=== PATIENT | female | born 1975 | race Caucasian/White ===

== ENCOUNTER 2016-05-24 19:53 | Emergency (ER) | payer MEDICAID ==
[~2016-05-24 19:53] MED LIST: IBUP800T23 PO; TRAM50TA PO
[2016-05-24 19:58] VITALS: BP 126/90; PULSE 86; RESP 20; TEMP 99; O2SAT 100
[2016-05-24] MEDS ORDERED: ATEN100T PO (20:09)
--- NOTE | 2016-05-24 20:26 | PD ---
HPI Chief Complaint: Musculoskeletal Complaint Time Seen by Provider: 20:07 Travel History International Travel<30 days: No Contact w/Intl Traveler<30days: No Traveled to known affect area: No History of Present Illness HPI 40-year-old female is complaining of some nausea and headache. She says she been feeling sick for a couple of days. She is having a constant dull headache. She does have a history of headaches. He's taken Tylenol and Motrin without much response. She is being evaluated by her doctor for a lump on her left breast. She had ultrasound and mammogram done apparently her doctor thinks he has some lymph glands in the left axilla. PFSH Past Medical History Anemia: Yes Blood Disorders: No Heart Rhythm Problems: Yes (PRE-SVT) Diabetes: No Diminished Hearing: No Herniated Disk: Yes (two) Hypertension: Yes Kidney Stones: Yes Musculoskeletal: Yes (CHRONIC BACK PAIN) Reproductive: Yes (R OVARY ADHESION, ENDOMETRIOSIS) Immunizations Current: No Migraines: Yes Influenza Vaccination: No ?: Not Menopausal: Yes : 3 Para: 3 Ovarian Cysts: Yes Tubal Ligation: Yes Past Surgical History Abdominal Surgery: Yes (HAD LAP 07/03/06) Appendectomy: Yes Body Medical Devices: DX WITH TUMOR RIGHT OVARY Section: Yes (X3) Cholecystectomy: Yes Gynecologic Surgery: Yes (, LAPAROSCOPIES) Hysterectomy: Yes (2004) Social History Alcohol Use: No Tobacco Use: No Substance Use: No Allergies-Medications (Allergen,Severity, Reaction): Coded Allergies: Benzoin (Verified Allergy, Severe, rash, 01/30/16) Compazine (Verified Allergy, Severe, AGGITATION/INCREASED HR, 01/30/16) Reglan (Verified Allergy, Severe, AGGITATION/INCREASED HR, 01/30/16) Toradol (Verified Allergy, Severe, RASH, 01/30/16) Reported Meds & Prescriptions Reported Meds & Active Scripts Active Reported Atenolol 100 Mg Tab 100 Mg PO DAILY Ibuprofen 800 Mg Tab 800 Mg PO BID PRN Tramadol (Tramadol HCl) 50 Mg Tab 50 Mg PO QID PRN Review of Systems General / Constitutional: No: Fever, Chills Eyes: No: Diploplia, Blurred Vision HENT: Positive: Headaches Cardiovascular: No: Chest Pain or Discomfort, Palpitations Respiratory: No: Cough, Shortness of Breath Gastrointestinal: Positive: Nausea, Diarrhea Genitourinary: No: Urgency, Frequency Musculoskeletal: No: Myalgias Skin: No Rash, No Itching Neurologic: No: Weakness Endocrine: No: Heat Intolerance Hematologic/Lymphatic: No: Easy Bruising Physical Exam Narrative GENERAL: Well-developed female SKIN: Focused skin assessment warm/dry. HEAD: Atraumatic. Normocephalic. EYES: Pupils equal and round. No scleral icterus. No injection or drainage. ENT: No nasal bleeding or discharge. Mucous membranes pink and moist. NECK: Trachea midline. No JVD. CARDIOVASCULAR: Regular rate and rhythm. No murmur appreciated. RESPIRATORY: No accessory muscle use. Clear to auscultation. Breath sounds equal bilaterally. On the outer quadrant of the left breast is a 1 cm diameter firm mass. I do not feel any axillary adenopathy GASTROINTESTINAL: Abdomen soft, non-tender, nondistended. Hepatic and splenic margins not palpable. MUSCULOSKELETAL: No obvious deformities. No clubbing. No cyanosis. No edema. NEUROLOGICAL: Awake and alert. No obvious cranial nerve deficits. Motor grossly within normal limits. Normal speech. PSYCHIATRIC: Appropriate mood and affect; insight and judgment normal. Data Data Last Documented VS Vital Signs Date Time Temp Pulse Resp B/P Pulse Ox O2 Delivery O2 Flow Rate FiO2 05/24/16 20:47 82 18 147/90 98 Room Air 05/24/16 19:58 99.0 Orders Complete Blood Count With Diff (05/24/16 20:21) Basic Metabolic Panel (Bmp) (05/24/16 20:21) Urinalysis - C+S If Indicated (05/24/16 20:21) Sodium Chlor 0.9% 1000 Ml Inj (Ns 1000 M (05/24/16 20:30) Ondansetron Inj (Zofran Inj) (05/24/16 20:30) Morphine Inj (Morphine Inj) (05/24/16 20:30) Urine Culture (05/24/16 20:25) Labs Laboratory Tests Test 05/24/16 05/24/16 20:25 20:30 Urine Color YELLOW Urine Turbidity SLIGHT Urine pH 5.5 Urine Specific [place] 1.031 Urine Protein 30 mg/dL Urine Glucose (UA) NEG mg/dL Urine Ketones NEG mg/dL Urine Occult Blood TRACE Urine Nitrite NEG Urine Bilirubin NEG Urine Leukocyte Esterase NEG Urine RBC 0-3 /hpf Urine WBC 0-2 /hpf Urine Squamous Epithelial 0-5 /hpf Cells Urine Calcium Oxalate Crystals MANY /hpf Urine Bacteria MOD /hpf Urine Hyaline Casts 0-2 /lpf Urine Mucus MOD /lpf Microscopic Urinalysis Comment CULTURE INDICATED White Blood Count 10.2 TH/MM3 Red Blood Count 4.26 MIL/MM3 Hemoglobin 12.2 GM/DL Hematocrit 36.0 % Mean Corpuscular Volume 84.5 FL Mean Corpuscular Hemoglobin 28.6 PG Mean Corpuscular Hemoglobin 33.9 % Concent Red Cell Distribution Width 11.8 % Platelet Count 287 TH/MM3 Mean Platelet Volume 7.7 FL Neutrophils (%) (Auto) 76.9 % Lymphocytes (%) (Auto) 15.6 % Monocytes (%) (Auto) 5.9 % Eosinophils (%) (Auto) 1.3 % Basophils (%) (Auto) 0.3 % Neutrophils # (Auto) 7.9 TH/MM3 Lymphocytes # (Auto) 1.6 TH/MM3 Monocytes # (Auto) 0.6 TH/MM3 Eosinophils # (Auto) 0.1 TH/MM3 Basophils # (Auto) 0.0 TH/MM3 CBC Comment DIFF FINAL Differential Comment Sodium Level 144 MEQ/L Potassium Level 3.6 MEQ/L Chloride Level 107 MEQ/L Carbon Dioxide Level 28.0 MEQ/L Anion Gap 9 MEQ/L Blood Urea Nitrogen 10 MG/DL Creatinine 0.81 MG/DL Estimat Glomerular Filtration 79 ML/MIN Rate Random Glucose 102 MG/DL Calcium Level 8.7 MG/DL MDM Medical Decision Making Medical Screen Exam Complete: Yes Emergency Medical Condition: Yes Medical Record Reviewed: Yes Differential Diagnosis Differential includes breast lump, viral syndrome Narrative Course White count is 10,000. Urine shows bacteria but there are no white cells and leukocyte esterase and nitrates are negative. She is stable I doubt this lump on the breast that she has had for 2 months as the cause of her current illness. She is having vomiting and diarrhea area most likely a viral syndrome. I will prescribe Zofran for nausea Diagnosis Primary Impression: Viral syndrome Scripts Ondansetron Odt (Zofran Odt)4 Mg Tab4 Mg SL Q8HR PRN (Nausea/Vomiting) #10 TAB Ref 0 Prov:Guillermo Uriostegui MD 05/24/16 Disposition: DISCHARGE HOME Condition: Stable Guillermo Uriostegui MD May 24, 2016 20:26
[2016-05-24] MEDS ORDERED: SODIUM CHLOR 0.9% 1000 ML INJ 1,000 ML IV ONE (20:30)
[2016-05-24] MEDS ORDERED: ONDANSETRON HCL 4 MG/2 ML VIAL IV PUSH ONE (20:30)
[2016-05-24] MEDS ORDERED: MORPHINE SULFATE 8 MG/ML INJ IV PUSH ONE (20:30)
[2016-05-24 20:39] LABS: BLOOD, URINE TRACE (NEG); GLUCOSE,URINE NEG (NEG); KETONE, URINE NEG (NEG); NITRITE,URINE NEG (NEG); PH, URINE 5.5 (5.0-8.5)
[2016-05-24 20:39] LABS: AUTOMATED NEUTROPHIL # 7.9 TH/MM3 (1.8-7.7); BASOPHIL % 0.3 % (0.0-2.0); EOSINOPHIL # 0.1 TH/MM3 (0-0.4); EOSINOPHIL % 1.3 % (0.0-4.0); HEMO FLAGS DIFF FINAL; LYMPH % 15.6 % (9.0-44.0); LYMPHOCYTE # 1.6 TH/MM3 (1.0-4.8); MEAN CELL VOLUME 84.5 FL (80.0-100.0); MEAN CORPUSCULAR HEMOGLOBIN 28.6 PG (27.0-34.0); MEAN CORPUSCULAR HGB CONC 33.9 % (32.0-36.0); MONO % 5.9 % (0.0-8.0); NEUT % 76.9 % (16.0-70.0); PLATELET COUNT 287 TH/MM3 (150-450); RED BLOOD COUNT 4.26 MIL/MM3 (4.00-5.30); RED CELL DISTRIBUTION WIDTH 11.8 % (11.6-17.2); WHITE BLOOD COUNT 10.2 TH/MM3 (4.0-11.0)
[2016-05-24 20:46] LABS: POTASSIUM 3.6 MEQ/L (3.5-5.1)
[2016-05-24 20:47] VITALS: BP 147/90; PULSE 82; RESP 18; O2SAT 98
[2016-05-24 20:47] LABS: MUCUS URINE MOD /lpf (OCC); URINE COLOR YELLOW (YELLW/STRAW)
[2016-05-24 20:48] LABS: SQUAMOUS EPITHELIAL CELL URINE 0-5 /hpf (0-5)
[2016-05-24 20:49] LABS: CALCIUM OXALATE CRYSTALS,URINE MANY /hpf; RBC, URINE 0-3 /hpf (0-3)
[2016-05-24 20:50] LABS: WBC, URINE 0-2 /hpf (0-5)
[2016-05-24 20:51] LABS: BACTERIA, URINE MOD /hpf; HYALINE CAST, URINE 0-2 /lpf (RARE)
[2016-05-24 21:00] LABS: COMMENT (UR) CULTURE INDICATED; CULTURE IF INDICATED CULTURE INDICATED
[2016-05-24] MEDS ORDERED: ZOFR4TAB3 SL (21:08)
[2016-05-24 21:37] VITALS: BP 137/75; PULSE 77; RESP 16; O2SAT 100
== END 2016-05-24 21:44 | disposition home or self-care (01) ==
LOC: PHED 19:53
DX: B34.9 Viral infection, unspecified (principal); N39.0 Urinary tract infection, site not specified; B96.89 Other specified bacterial agents as the cause of diseases classified elsewhere
CPT/HCPCS: 80048; 81001; 85025; 87086; 96361; 96374; 96375; 99284; J2270; J2405; J7030

== ENCOUNTER 2016-07-21 15:20 | Emergency (ER) | payer MEDICAID ==
[~2016-07-21] VITALS: Ht 160 cm; Wt 98.7 kg
[~2016-07-21 15:20] MED LIST changes: +ATEN100T PO; +ZOFR4TAB3 SL
[2016-07-21 15:30] VITALS: BP 130/86; PULSE 110; RESP 16; TEMP 99.5; O2SAT 97
[2016-07-21] MEDS ORDERED: AMBI5TAB PO (15:46)
[2016-07-21] MEDS ORDERED: HYDR-3534 PO (15:47)
[2016-07-21] MEDS ORDERED: ZOFR4TAB PO (16:14)
[2016-07-21] MEDS ORDERED: PERC5TAB12 PO (16:14)
--- NOTE | 2016-07-21 16:20 | PD ---
HPI Chief Complaint: Pain: Acute or Chronic Time Seen by Provider: 16:04 Travel History International Travel<30 days: No Contact w/Intl Traveler<30days: No Traveled to known affect area: No History of Present Illness HPI The patient was seen and examined in the presence of the nurse. This patient had a lumpectomy of the left breast yesterday. She did not receive any pain medicine other than advised to take Motrin. She woke up morning with a lot of pain in the area. She tried Motrin which didn't help. No drainage from the site or redness. She also describes some runny nose congestion cough and diarrhea type symptoms. Severity is moderate PFSH Past Medical History Anemia: Yes Blood Disorders: No Heart Rhythm Problems: Yes (PRE-SVT) Diabetes: No Diminished Hearing: No Herniated Disk: Yes (two) Hypertension: Yes Kidney Stones: Yes Musculoskeletal: Yes (CHRONIC BACK PAIN) Reproductive: Yes (R OVARY ADHESION, ENDOMETRIOSIS) Immunizations Current: No Migraines: Yes ?: Not Menopausal: Yes : 3 Para: 3 Ovarian Cysts: Yes Tubal Ligation: Yes Past Surgical History Abdominal Surgery: Yes (HAD LAP 07/03/06) Appendectomy: Yes Body Medical Devices: DX WITH TUMOR RIGHT OVARY Section: Yes (X3) Cholecystectomy: Yes Gynecologic Surgery: Yes (, LAPAROSCOPIES) Hysterectomy: Yes (2004) Other Surgery: Yes (LEFT BREADT LUMPECTOMY) Social History Alcohol Use: No Tobacco Use: No Substance Use: No Allergies-Medications (Allergen,Severity, Reaction): Coded Allergies: Benzoin (Verified Allergy, Severe, rash, 07/21/16) Compazine (Verified Allergy, Severe, AGGITATION/INCREASED HR, 07/21/16) Reglan (Verified Allergy, Severe, AGGITATION/INCREASED HR, 07/21/16) Toradol (Verified Allergy, Severe, RASH, 07/21/16) Reported Meds & Prescriptions Reported Meds & Active Scripts Active Reported Lortab (Hydrocodone-Acetaminophen) 7.5-325 Mg Tab 1 Tab PO Q4H PRN Ambien (Zolpidem Tartrate) 5 Mg Tab 5 Mg PO HS PRN Atenolol 100 Mg Tab 100 Mg PO DAILY Ibuprofen 800 Mg Tab 800 Mg PO BID PRN Review of Systems Cardiovascular: No: Chest Pain or Discomfort Respiratory: Positive: Cough Gastrointestinal: Positive: Nausea, Diarrhea Skin: No Rash Physical Exam Narrative RESPIRATORY: Respiratory effort unlabored, no retractions or use of accessory muscles. Breath sounds are clear and symmetric. NECK: Symmetrical appearance, midline trachea. No mass or crepitus. Thyroid without enlargement, tenderness, or mass. GASTROINTESTINAL: Abdomen soft, non-tender, nondistended. Positive bowel sounds. No hepato-splenomegaly, or palpable masses. No guarding. Left breast: Lumpectomy site is noted. Steri-Strip in place. No dehiscence or sign of wound infection Data Data Last Documented VS Vital Signs Date Time Temp Pulse Resp B/P Pulse Ox O2 Delivery O2 Flow Rate FiO2 07/21/16 15:30 99.5 110 16 130/86 97 MDM Medical Decision Making Medical Screen Exam Complete: Yes Emergency Medical Condition: Yes Medical Record Reviewed: Yes Differential Diagnosis Flu syndrome, URI, wound infection Narrative Course I have reviewed the patient's electronic medical record. Surgical site looks good. I think this is unrelated to her flu-type symptoms Supportive care discussed I gave her a dozen pain pills and some Zofran on prescription to use if needed She is to call her surgeon tomorrow for follow-up Diagnosis Primary Impression: Postoperative pain Additional Impression: Viral syndrome Additional Instructions: The patient was warned about potential sedation for the medications they will receive on prescription. The patient was advised to follow up with their physician and return if they worsen. Med/Other Pt SpecificInfo: Prescription(s) given Scripts Ondansetron (Zofran)4 Mg Tab4 Mg PO Q6HR PRN (NAUSEA OR VOMITING) #10 TAB Ref 0 Prov:Yaya Avendaño MD 07/21/16 Oxycodone-Acetaminophen (Percocet)5-325 mg Tab1 Tab PO Q6H PRN (PAIN) #12 TAB Ref 0 Prov:Yaya Avendaño MD 07/21/16 Disposition: 01 DISCHARGE HOME Condition: Stable Yaya Avendaño MD Jul 21, 2016 16:20
== END 2016-07-21 16:55 | disposition home or self-care (01) ==
LOC: PHED 15:20
DX: G89.18 Other acute postprocedural pain (principal); B34.9 Viral infection, unspecified; R11.2 Nausea with vomiting, unspecified; R19.7 Diarrhea, unspecified; D64.9 Anemia, unspecified; I10 Essential (primary) hypertension; Z87.442 Personal history of urinary calculi
CPT/HCPCS: 99284

== ENCOUNTER 2016-07-25 17:16 | Emergency (ER) | payer MEDICAID ==
[~2016-07-25] VITALS: Ht 160 cm; Wt 94.0 kg
[~2016-07-25 17:16] MED LIST changes: +AMBI5TAB PO; +HYDR-3534 PO; +PERC5TAB12 PO; -TRAM50TA PO; +ZOFR4TAB PO; -ZOFR4TAB3 SL
[2016-07-25 17:24] VITALS: BP 136/91; PULSE 85; RESP 16; TEMP 98.5; O2SAT 99
[2016-07-25] MEDS ORDERED: SODIUM CHLORIDE 0.9% FLUSH 10 ML FLUSH IV FLUSH PRN (17:45)
[2016-07-25] MEDS ORDERED: diphenhydrAMINE HCL 50 MG/ML VIAL IVP ONE (17:45)
[2016-07-25] MEDS ORDERED: methylPREDNISolone SOD SUCC 125 MG/2 ML VIAL IVP ONE (17:45)
--- NOTE | 2016-07-25 17:45 | PD ---
HPI Chief Complaint: Pain: Acute or Chronic Time Seen by Provider: 17:40 Travel History International Travel<30 days: No Contact w/Intl Traveler<30days: No Traveled to known affect area: No History of Present Illness HPI 40-year-old female with history of previous [employer] surgeries with allergic reaction to wound adhesives, presents to the ER today because she states that she had a lumpectomy on the left breast done on Wednesday, started having redness and itching around the wound and was seen at another hospital on Wednesday, seen by her own physician the next day and had Steri-Strips removed. She returns to the ER today because of increased redness, itching, and burning in that same area. She denies any fevers or any other issues. Modifying Factors: None Associated Signs & Symptoms: Itching, burning, increased redness around the lumpectomy incision Risk Factors: Lumpectomy 5 days ago PFSH Past Medical History Hx Anticoagulant Therapy: No Anemia: Yes Blood Disorders: No Heart Rhythm Problems: Yes (PRE-SVT) Diabetes: No Diminished Hearing: No Herniated Disk: Yes (two) Hypertension: Yes Kidney Stones: Yes Musculoskeletal: Yes (CHRONIC BACK PAIN) Reproductive: Yes (R OVARY ADHESION, ENDOMETRIOSIS) Immunizations Current: No Migraines: Yes Tetanus Vaccination: > 5 Years Influenza Vaccination: No ?: Not Menopausal: Yes : 3 Para: 3 Ovarian Cysts: Yes Tubal Ligation: Yes Past Surgical History Abdominal Surgery: Yes (HAD LAP 07/03/06) Appendectomy: Yes Body Medical Devices: DX WITH TUMOR RIGHT OVARY Section: Yes (X3) Cholecystectomy: Yes Gynecologic Surgery: Yes (, LAPAROSCOPIES) Hysterectomy: Yes (2004) Other Surgery: Yes (LEFT BREADT LUMPECTOMY) Social History Alcohol Use: No Tobacco Use: No Substance Use: No Allergies-Medications (Allergen,Severity, Reaction): Coded Allergies: Benzoin (Verified Allergy, Severe, rash, 07/25/16) Compazine (Verified Allergy, Severe, AGGITATION/INCREASED HR, 07/25/16) Reglan (Verified Allergy, Severe, AGGITATION/INCREASED HR, 07/25/16) Toradol (Verified Allergy, Severe, RASH, 07/25/16) Reported Meds & Prescriptions Reported Meds & Active Scripts Active Zofran (Ondansetron HCl) 4 Mg Tab 4 Mg PO Q6HR PRN Percocet (Oxycodone-Acetaminophen) 5-325 mg Tab 1 Tab PO Q6H PRN Reported Lortab (Hydrocodone-Acetaminophen) 7.5-325 Mg Tab 1 Tab PO Q4H PRN Ambien (Zolpidem Tartrate) 5 Mg Tab 5 Mg PO HS PRN Atenolol 100 Mg Tab 100 Mg PO DAILY Ibuprofen 800 Mg Tab 800 Mg PO BID PRN Review of Systems Except as stated in HPI: all other systems reviewed are Neg Physical Exam Narrative GENERAL: Well-developed young white female patient currently in no acute distress. Awake and oriented 3. SKIN: Focused skin assessment warm/dry. The left breast incision looks clean, dry, intact, with surrounding erythema and papular erythematous diffuse nodules extending from the area with no streaking. There are notable small amount of yellowish weeping areas that are in the shape of Steri-Strip bandages around the incision. HEAD: Atraumatic. Normocephalic. EYES: Pupils equal and round. No scleral icterus. No injection or drainage. ENT: No nasal bleeding or discharge. Mucous membranes pink and moist. NECK: Trachea midline. No JVD. CARDIOVASCULAR: Regular rate and rhythm. No murmur appreciated. RESPIRATORY: No accessory muscle use. Clear to auscultation. Breath sounds equal bilaterally. GASTROINTESTINAL: Abdomen soft, non-tender, nondistended. Hepatic and splenic margins not palpable. MUSCULOSKELETAL: No obvious deformities. No clubbing. No cyanosis. No edema. NEUROLOGICAL: Awake and alert. No obvious cranial nerve deficits. Motor grossly within normal limits. Normal speech. PSYCHIATRIC: Appropriate mood and affect; insight and judgment normal. Data Data Last Documented VS Vital Signs Date Time Temp Pulse Resp B/P Pulse Ox O2 Delivery O2 Flow Rate FiO2 07/25/16 18:18 98 Room Air 07/25/16 17:24 98.5 85 16 136/91 Orders Basic Metabolic Panel (Bmp) (07/25/16 17:40) Complete Blood Count With Diff (07/25/16 17:40) Ecg Monitoring (07/25/16 17:40) Iv Access Insert/Monitor (07/25/16 17:40) Oximetry (07/25/16 17:40) Diphenhydramine Inj (Benadryl Inj) (07/25/16 17:45) Methylprednisolone So Succ Inj (Solumedr (07/25/16 17:45) Sodium Chloride 0.9% Flush (Ns Flush) (07/25/16 17:45) Lactic Acid Sepsis Protocol (07/25/16 17:40) Ibuprofen (Motrin) (07/25/16 18:15) Labs Laboratory Tests Test 07/25/16 07/25/16 17:56 18:14 White Blood Count 7.4 TH/MM3 Red Blood Count 4.28 MIL/MM3 Hemoglobin 12.4 GM/DL Hematocrit 35.9 % Mean Corpuscular Volume 83.8 FL Mean Corpuscular Hemoglobin 28.8 PG Mean Corpuscular Hemoglobin 34.4 % Concent Red Cell Distribution Width 11.4 % Platelet Count 293 TH/MM3 Mean Platelet Volume 7.8 FL Neutrophils (%) (Auto) 70.8 % Lymphocytes (%) (Auto) 18.1 % Monocytes (%) (Auto) 7.6 % Eosinophils (%) (Auto) 3.0 % Basophils (%) (Auto) 0.5 % Neutrophils # (Auto) 5.2 TH/MM3 Lymphocytes # (Auto) 1.3 TH/MM3 Monocytes # (Auto) 0.6 TH/MM3 Eosinophils # (Auto) 0.2 TH/MM3 Basophils # (Auto) 0.0 TH/MM3 CBC Comment DIFF FINAL Differential Comment Sodium Level 141 MEQ/L Potassium Level 3.8 MEQ/L Chloride Level 105 MEQ/L Carbon Dioxide Level 28.5 MEQ/L Anion Gap 8 MEQ/L Blood Urea Nitrogen 9 MG/DL Creatinine 0.71 MG/DL Estimat Glomerular Filtration 92 ML/MIN Rate Random Glucose 95 MG/DL Calcium Level 9.5 MG/DL Lactic Acid Level 1.2 mmol/L [facility] Medical Decision Making Medical Screen Exam Complete: Yes Emergency Medical Condition: Yes Medical Record Reviewed: Yes Interpretation(s) Laboratory Tests Test 07/25/16 17:56 Red Cell Distribution Width 11.4 % (11.6-17.2) Neutrophils (%) (Auto) 70.8 % (16.0-70.0) Differential Diagnosis Allergic reaction to adhesives versus cellulitis Narrative Course Patient also reports that she has had multiple episodes of diarrhea daily since her surgery. She had been on some IV antibiotics during the surgery but is not on any current antibiotics now. Considering the history, I am suspecting that she may have some C. difficile diarrhea. Flagyl will be given as well. I suspect that patient has a allergic reaction to Steri-Strips. She apparently had a reaction to what they thought was benzoin when she had her [employer]ECUTIVE surgeries. It is likely that Steri-Strips were used at that point as well. The blistering and exudates where the erythema is surrounding, is in the shape of Steri-Strips. My plan would be to put her on some steroids and keep her on the Benadryl. We will have her follow-up closely with her surgeon on Wednesday. Return for any signs of worsening in redness, fevers, or new symptoms as needed. Lab work did not indicate any signs of sepsis. At this point. The plan was discussed with her and she states understanding. Diagnosis Primary Impression: Allergic reaction Additional Impression: C. difficile diarrhea Med/Other Pt SpecificInfo: Prescription(s) given Scripts Acetaminophen-Codeine (Tylenol-Codeine #3)300-30 mg Tab1 Tab PO Q4H PRN (PAIN) # 10 TAB Ref 0 Prov:Rich Landers MD 07/25/16 Metronidazole (Flagyl)500 Mg [id number] Mg PO TID 7 Days Ref 0 Prov:Rich Landers MD 07/25/16 Methylprednisolone Dosepak (Medrol Dosepak)4 Mg Dspk4 Mg PO DIRECTED #1 DSPK Ref 0 Per Pharmacist direction Prov:Rich Landers MD 07/25/16 Disposition: 01 DISCHARGE HOME Condition: Stable Rich Landers MD Jul 25, 2016 17:45
[2016-07-25 18:07] LABS: AUTOMATED NEUTROPHIL # 5.2 TH/MM3 (1.8-7.7); BASOPHIL % 0.5 % (0.0-2.0); EOSINOPHIL # 0.2 TH/MM3 (0-0.4); HEMATOCRIT 35.9 % (35.0-46.0); HEMO FLAGS DIFF FINAL; LYMPH % 18.1 % (9.0-44.0); LYMPHOCYTE # 1.3 TH/MM3 (1.0-4.8); MEAN CELL VOLUME 83.8 FL (80.0-100.0); MEAN CORPUSCULAR HEMOGLOBIN 28.8 PG (27.0-34.0); MEAN CORPUSCULAR HGB CONC 34.4 % (32.0-36.0); MONO % 7.6 % (0.0-8.0); NEUT % 70.8 % (16.0-70.0); PLATELET COUNT 293 TH/MM3 (150-450); RED BLOOD COUNT 4.28 MIL/MM3 (4.00-5.30); RED CELL DISTRIBUTION WIDTH 11.4 % (11.6-17.2); WHITE BLOOD COUNT 7.4 TH/MM3 (4.0-11.0)
[2016-07-25 18:15] LABS: POTASSIUM 3.8 MEQ/L (3.5-5.1)
[2016-07-25] MEDS ORDERED: IBUPROFEN 400 MG TAB PO ONE (18:15)
[2016-07-25 18:18] VITALS: O2SAT 98
[2016-07-25 18:18] LABS: BICARBONATE 28.5 MEQ/L (21.0-32.0)
[2016-07-25] MEDS ORDERED: MEDR4PAK PO (19:04)
[2016-07-25] MEDS ORDERED: TYLETAB34 PO (19:04)
[2016-07-25] MEDS ORDERED: METR-1 PO (19:04)
[2016-07-25 19:21] VITALS: BP 127/74
== END 2016-07-25 19:22 | disposition home or self-care (01) ==
LOC: PHED 17:16
DX: T78.49XA Other allergy, initial encounter (principal); A04.7 Enterocolitis due to Clostridium difficile; I10 Essential (primary) hypertension; X58.XXXA Exposure to other specified factors, initial encounter; Z98.890 Other specified postprocedural states; Z86.2 Personal history of diseases of the blood and blood-forming organs and certain disorders involving the immune mechanism; Z86.79 Personal history of other diseases of the circulatory system; Z87.39 Personal history of other diseases of the musculoskeletal system and connective tissue; Z87.442 Personal history of urinary calculi; Z87.42 Personal history of other diseases of the female genital tract; Z86.69 Personal history of other diseases of the nervous system and sense organs
CPT/HCPCS: 80048; 83605; 85025; 96374; 96375; 99284; J1200; J2930

== ENCOUNTER 2016-09-14 15:12 | Emergency (ER) | payer MEDICAID ==
[~2016-09-14] VITALS: Ht 154.9 cm; Wt 95.0 kg
[~2016-09-14 15:12] MED LIST changes: +MEDR4PAK PO; +METR-1 PO; +TYLETAB34 PO
[2016-09-14 15:15] VITALS: BP 162/89; PULSE 83; PULSE 88; RESP 16; TEMP 98.8; O2SAT 100; O2SAT 99
[2016-09-14] MEDS ORDERED: HYDR-3366 PO (15:23)
[2016-09-14] MEDS ORDERED: ULTR37.55 PO (15:32)
--- NOTE | 2016-09-14 15:38 | PD ---
HPI Chief Complaint: Headache Time Seen by Provider: 15:25 Travel History International Travel<30 days: No Contact w/Intl Traveler<30days: No Traveled to known affect area: No History of Present Illness HPI The patient was seen and examined in the presence of the nurse. This patient complains of migraine headache. She has a right frontal throbbing headache. No head injury or thunderclap onset. She says this feels like her usual migraine but just wasn't going away. Duration 2 days. She says she's had migraines like this ever since the age of 11. She says that Ultracet helps her migraine but she doesn't have any. PFSH Past Medical History Hx Anticoagulant Therapy: No Anemia: Yes Blood Disorders: No Heart Rhythm Problems: Yes (PRE-SVT) Diabetes: No Diminished Hearing: No Herniated Disk: Yes (two) Hypertension: Yes Kidney Stones: Yes Musculoskeletal: Yes (CHRONIC BACK PAIN) Reproductive: Yes (R OVARY ADHESION, ENDOMETRIOSIS) Immunizations Current: No Migraines: Yes Influenza Vaccination: No ?: Not Menopausal: Yes : 3 Para: 3 Ovarian Cysts: Yes Tubal Ligation: Yes Past Surgical History Abdominal Surgery: Yes (HAD LAP 07/03/06) Appendectomy: Yes Body Medical Devices: DX WITH TUMOR RIGHT OVARY Section: Yes (X3) Cholecystectomy: Yes Gynecologic Surgery: Yes (, LAPAROSCOPIES) Hysterectomy: Yes Other Surgery: Yes (LEFT BREADT LUMPECTOMY) Social History Alcohol Use: No Tobacco Use: No Substance Use: No Allergies-Medications (Allergen,Severity, Reaction): Coded Allergies: Benzoin (Verified Allergy, Severe, rash, 09/14/16) Compazine (Verified Allergy, Severe, AGGITATION/INCREASED HR, 09/14/16) Reglan (Verified Allergy, Severe, AGGITATION/INCREASED HR, 09/14/16) Toradol (Verified Allergy, Severe, RASH, 09/14/16) Reported Meds & Prescriptions Reported Meds & Active Scripts Active Ultracet (Tramadol-Acetaminophen) 37.5-325 mg Tab 2 Tab PO Q6H PRN Reported [place] (Hydrocodone-Acetaminophen) 10-325 Mg Tab 1 Tab PO TID Atenolol 100 Mg Tab 100 Mg PO DAILY Ibuprofen 800 Mg Tab 800 Mg PO BID PRN Review of Systems General / Constitutional: No: Fever HENT: Positive: Headaches Cardiovascular: No: Chest Pain or Discomfort Respiratory: No: Cough Physical Exam Narrative NEUROLOGICAL: Awake and alert. Pupils are equal round and reactive. Motor and sensory grossly within normal limits. Five out of 5 muscle strength in all muscle groups. Normal speech. NECK: Symmetrical appearance, midline trachea. No mass or crepitus. Thyroid without enlargement, tenderness, or mass. No meningeal signs SKIN: Focused skin assessment reveals no rash or ulcers. Skin is warm and dry. Palpation shows no induration or nodules. Data Data Last Documented VS Vital Signs Date Time Temp Pulse Resp B/P Pulse Ox O2 Delivery O2 Flow Rate FiO2 09/14/16 15:15 98.8 88 16 162/89 100 Room Air MDM Medical Decision Making Medical Screen Exam Complete: Yes Emergency Medical Condition: Yes Medical Record Reviewed: Yes Differential Diagnosis Differential diagnosis includes migraine, tension headache, cluster headache, meningitis. Narrative Course I have reviewed the patient's electronic medical record. She is a frequent visitor to the ER for minor complaints. She was here last month for viral syndrome She is neurologically intact. No red flags to suggest emergent imaging is indicated I wrote her some Ultracet Diagnosis Primary Impression: Migraine Qualified Code: G43.909 - Migraine without status migrainosus, not intractable , unspecified migraine type Additional Instructions: The patient was advised to follow up with their physician and return if they worsen. The patient was warned about potential sedation for the medications they will receive on prescription. Med/Other Pt SpecificInfo: Prescription(s) given Scripts Tramadol-Acetaminophen (Ultracet)37.5-325 mg Tab2 Tab PO Q6H PRN (PAIN) #20 TAB Ref 0 Prov:Yaya Avendaño MD 09/14/16 Disposition: 01 DISCHARGE HOME Condition: Stable Yaya Avendaño MD Sep 14, 2016 15:38
== END 2016-09-14 15:48 | disposition home or self-care (01) ==
LOC: PHED 15:12
DX: G43.909 Migraine, unspecified, not intractable, without status migrainosus (principal); I10 Essential (primary) hypertension; Z86.2 Personal history of diseases of the blood and blood-forming organs and certain disorders involving the immune mechanism; Z86.79 Personal history of other diseases of the circulatory system; Z87.39 Personal history of other diseases of the musculoskeletal system and connective tissue; Z87.442 Personal history of urinary calculi; Z87.42 Personal history of other diseases of the female genital tract
CPT/HCPCS: 99283

== ENCOUNTER 2016-10-03 07:22 | Emergency (ER) | payer MEDICAID ==
[~2016-10-03] VITALS: Ht 160 cm; Wt 95.2 kg
[~2016-10-03 07:22] MED LIST changes: -AMBI5TAB PO; +HYDR-3366 PO; -HYDR-3534 PO; -MEDR4PAK PO; -METR-1 PO; -PERC5TAB12 PO; -TYLETAB34 PO; +ULTR37.55 PO; -ZOFR4TAB PO
[2016-10-03 07:29] VITALS: BP 106/59; PULSE 88; RESP 16; TEMP 97.6; O2SAT 98
[2016-10-03 07:53] LABS: BLOOD, URINE LARGE (NEG); GLUCOSE,URINE NEG (NEG); KETONE, URINE NEG (NEG); NITRITE,URINE NEG (NEG); PH, URINE 5.5 (5.0-8.5)
[2016-10-03] MEDS ORDERED: SODIUM CHLOR 0.9% 1000 ML INJ 1,000 ML IV SCH (07:55)
[2016-10-03 07:59] LABS: METHOD OF COLLECTION CLEAN CATCH; URINE COLOR YELLOW (YELLW/STRAW)
[2016-10-03 08:00] LABS: BACTERIA, URINE RARE /hpf; COMMENT (UR) CULTURE INDICATED; CULTURE IF INDICATED CULTURE INDICATED; RBC, URINE 100-200 /hpf (0-3); SQUAMOUS EPITHELIAL CELL URINE > 8 /hpf (0-5)
[2016-10-03] MEDS ORDERED: SODIUM CHLORIDE 0.9% FLUSH 10 ML FLUSH IV FLUSH PRN (08:00)
[2016-10-03] MEDS ORDERED: ONDANSETRON HCL 4 MG/2 ML VIAL IVP ONE (08:00)
[2016-10-03] MEDS ORDERED: KETOROLAC TROMETHAMINE 30 MG/ML (IVP) VIAL IV PUSH ONE (08:00)
--- NOTE | 2016-10-03 08:10 | PD ---
HPI Chief Complaint: Flank/Kidney Pain Time Seen by Provider: 07:55 Travel History International Travel<30 days: No Contact w/Intl Traveler<30days: No Traveled to known affect area: No History of Present Illness HPI Patient is a 40-year-old female presents emergency Department with left flank pain and shortness of breath since yesterday. Patient states she's been short of breath with ambulation. States she's also been having suprapubic abdominal pain and states she has a lot of scar tissue "down there". Patient states she has a history of endometriosis and had a total hysterectomy a few years ago. Denies any vaginal bleeding vaginal discharge. Mild nausea without vomiting no change in stool habits. She has not tried anything for pain prior to arrival states that sharp and fairly constant. PFSH Past Medical History Hx Anticoagulant Therapy: No Anemia: Yes Arthritis: Yes (RA) Blood Disorders: No Heart Rhythm Problems: Yes (PRE-SVT) Cardiovascular Problems: Yes (htn on meds) Diabetes: No Diminished Hearing: No Herniated Disk: Yes (two) Hypertension: Yes Kidney Stones: Yes Musculoskeletal: Yes (CHRONIC BACK PAIN) Reproductive: Yes (R OVARY ADHESION, ENDOMETRIOSIS) Immunizations Current: No Migraines: Yes Tetanus Vaccination: < 5 Years Influenza Vaccination: No ?: Not Menopausal: Yes : 3 Para: 3 Ovarian Cysts: Yes Tubal Ligation: Yes Past Surgical History Abdominal Surgery: Yes (HAD LAP 07/03/06) Appendectomy: Yes Body Medical Devices: DX WITH TUMOR RIGHT OVARY Section: Yes (X3) Cholecystectomy: Yes Gynecologic Surgery: Yes (, LAPAROSCOPIES) Hysterectomy: Yes (2003) Other Surgery: Yes (LEFT BREADT LUMPECTOMY) Social History Alcohol Use: No Tobacco Use: No (smoked cigs for 3 yrs) Substance Use: No Allergies-Medications (Allergen,Severity, Reaction): Coded Allergies: benzoin (Unverified Allergy, Severe, rash, 10/03/16) ketorolac (Unverified Allergy, Severe, RASH, 10/03/16) metoclopramide (Unverified Allergy, Severe, AGGITATION/INCREASED HR, ) prochlorperazine (Unverified Allergy, Severe, AGGITATION/INCREASED HR, ) storax (Unverified Allergy, Severe, rash, 10/03/16) jorge balsam (Unverified Allergy, Severe, rash, 10/03/16) Reported Meds & Prescriptions Reported Meds & Active Scripts Active Tramadol (Tramadol HCl) 50 Mg Tab 50 Mg PO Q6H PRN Keflex (Cephalexin) 500 Mg Cap 500 Mg PO Q6H 5 Days Reported Turmeric (Turmeric (Curcuma Longa)) 500 Mg Cap 1 Cap PO BID [place]-3 Fish Oil/Vitamin (Fish Oil-Cholecalciferol) 1,000-1,000 Mg Cap 1 Cap PO DAILY Multiple Vitamin 1 Tab 1 Tab PO DAILY [place] (Hydrocodone-Acetaminophen) 10-325 Mg Tab 1 Tab PO TID Atenolol 100 Mg Tab 100 Mg PO DAILY Ibuprofen 800 Mg Tab 800 Mg PO BID PRN Review of Systems Except as stated in HPI: all other systems reviewed are Neg Physical Exam Narrative GENERAL: Well-developed well-nourished, mildly uncomfortable appearance SKIN: Focused skin assessment warm/dry. HEAD: Atraumatic. Normocephalic. EYES: Pupils equal and round. No scleral icterus. No injection or drainage. ENT: No nasal bleeding or discharge. Mucous membranes pink and moist. NECK: Trachea midline. No JVD. CARDIOVASCULAR: Regular rate and rhythm. No murmur appreciated. RESPIRATORY: No accessory muscle use. Clear to auscultation. Breath sounds equal bilaterally. GASTROINTESTINAL: Abdomen soft, non-tender, nondistended. Hepatic and splenic margins not palpable. No CVA tenderness, no peritoneal signs, psoas and after signs negative. MUSCULOSKELETAL: No obvious deformities. No clubbing. No cyanosis. No edema. NEUROLOGICAL: Awake and alert. No obvious cranial nerve deficits. Motor grossly within normal limits. Normal speech. PSYCHIATRIC: Appropriate mood and affect; insight and judgment normal. Data Data Last Documented VS Vital Signs Date Time Temp Pulse Resp B/P Pulse Ox O2 Delivery O2 Flow Rate FiO2 10/03/16 09:38 68 18 140/86 100 10/03/16 09:35 Room Air 10/03/16 07:29 97.6 Orders Urinalysis - C+S If Indicated (10/03/16 07:28) Ed Urine Pregnancytest Poc (10/03/16 07:28) Complete Blood Count With Diff (10/03/16 07:55) Comprehensive Metabolic Panel (10/03/16 07:55) Lipase (10/03/16 07:55) Prothrombin Time / Inr (Pt) (10/03/16 07:55) Act Partial Throm Time (Ptt) (10/03/16 07:55) Iv Access Insert/Monitor (10/03/16 07:55) Ecg Monitoring (10/03/16 07:55) Oximetry (10/03/16 07:55) Ondansetron Inj (Zofran Inj) (10/03/16 08:00) Sodium Chlor 0.9% 1000 Ml Inj (Ns 1000 M (10/03/16 07:55) Sodium Chloride 0.9% Flush (Ns Flush) (10/03/16 08:00) Ketorolac Inj (Toradol Inj) (10/03/16 08:00) Urine Culture (10/03/16 07:45) Ct Abd/Pel W/O Iv Contrast (10/03/16 ) Chest, Single Ap (10/03/16 ) Labs Laboratory Tests Test 10/03/16 10/03/16 07:45 08:20 Urine Collection Type CLEAN CATCH Urine Color YELLOW Urine Turbidity SLIGHT Urine pH 5.5 Urine Specific [place] 1.024 Urine Protein NEG mg/dL Urine Glucose (UA) NEG mg/dL Urine Ketones NEG mg/dL Urine Occult Blood LARGE Urine Nitrite NEG Urine Bilirubin NEG Urine Leukocyte Esterase TRACE Urine RBC 100-200 /hpf Urine WBC 9-14 /hpf Urine Squamous Epithelial > 8 /hpf Cells Urine Bacteria RARE /hpf Microscopic Urinalysis Comment CULTURE INDICATED Urine Collection Time 07:45 White Blood Count 5.6 TH/MM3 Red Blood Count 4.45 MIL/MM3 Hemoglobin 12.7 GM/DL Hematocrit 36.9 % Mean Corpuscular Volume 82.9 FL Mean Corpuscular Hemoglobin 28.5 PG Mean Corpuscular Hemoglobin 34.3 % Concent Red Cell Distribution Width 11.4 % Platelet Count 246 TH/MM3 Mean Platelet Volume 7.8 FL Neutrophils (%) (Auto) 61.7 % Lymphocytes (%) (Auto) 26.7 % Monocytes (%) (Auto) 6.8 % Eosinophils (%) (Auto) 4.0 % Basophils (%) (Auto) 0.8 % Neutrophils # (Auto) 3.5 TH/MM3 Lymphocytes # (Auto) 1.5 TH/MM3 Monocytes # (Auto) 0.4 TH/MM3 Eosinophils # (Auto) 0.2 TH/MM3 Basophils # (Auto) 0.0 TH/MM3 CBC Comment DIFF FINAL Differential Comment Prothrombin Time 10.2 SEC Prothromb Time International 0.9 RATIO Ratio Activated Partial 26.8 SEC Thromboplast Time Sodium Level 138 MEQ/L Potassium Level 3.8 MEQ/L Chloride Level 105 MEQ/L Carbon Dioxide Level 26.0 MEQ/L Anion Gap 7 MEQ/L Blood Urea Nitrogen 10 MG/DL Creatinine 0.76 MG/DL Estimat Glomerular Filtration 85 ML/MIN Rate Random Glucose 97 MG/DL Calcium Level 8.9 MG/DL Total Bilirubin 0.3 MG/DL Aspartate Amino Transf 24 U/L (AST/SGOT) Alanine Aminotransferase 35 U/L (ALT/SGPT) Alkaline Phosphatase 95 U/L Total Protein 8.1 GM/DL Albumin 4.0 GM/DL Lipase 106 U/L [facility] Medical Decision Making Medical Screen Exam Complete: Yes Emergency Medical Condition: Yes Differential Diagnosis Diverticulitis, kidney stone, kidney infection, Narrative Course Patient roomed in the emergency department, she isolates the pain fairly well to her left lower quadrant and left flank. She does have a significant amount hematuria. States she had one kidney stone in the past but never caused her pain. CAT scan was performed to confirm kidney stone is possible diagnosis and does not show kidney stones but does show some lymphadenopathy and per the radiologist "lymphoma needs exclusion." This was discussed with the patient and she states "that make sense". She states she's been very fatigued and actually had noticed some lymph nodes in her left breast one of which was biopsied and was showing fibrocystic disease. She states that the lymph node that she was concerned about was not biopsied. She then demonstrated to me in front of female nurse medical center representative a 1 cm nodular mass subcutaneous in the 3 o' clock position of the left breast. No lymphadenopathy in the axillary chain. Patient's labs reviewed and are reassuring and she is feeling better after medications during in the emergency department. I discussed with her that she needs to follow-up with primary care physician and consider following up oncology for consideration of biopsy of the note in her breasts were one of the nodes in her abdomen if amenable. Discussed that she be done fairly soon but certainly no need to admit her to the hospital at this time. She verbalized understanding and agreement wished to go home at this time. She was given copies of her CAT scan reports and instructed that if she cannot find someone to follow-up these lymph nodes in the timely fashion and she can return to the emergency Department for consideration of further workup here. Diagnosis Primary Impression: Abdominal lymphadenopathy Additional Impressions: Abdominal pain Hematuria Referrals: Addy Pedersen MD, Awais M. MD Med/Other Pt SpecificInfo: Prescription(s) given Scripts Tramadol 50 Mg Tab50 Mg PO Q6H PRN (PAIN) #15 TAB Ref 0 Prov:Usman Kc MD 10/03/16 Cephalexin (Keflex)500 Mg Iej873 Mg PO Q6H 5 Days Ref 0 Prov:Usman Kc MD 10/03/16 Disposition: 01 DISCHARGE HOME Condition: Stable Usman Kc MD Oct 03, 2016 08:10
[2016-10-03 08:27] LABS: AUTOMATED NEUTROPHIL # 3.5 TH/MM3 (1.8-7.7); BASOPHIL % 0.8 % (0.0-2.0); EOSINOPHIL # 0.2 TH/MM3 (0-0.4); HEMATOCRIT 36.9 % (35.0-46.0); HEMO FLAGS DIFF FINAL; LYMPH % 26.7 % (9.0-44.0); LYMPHOCYTE # 1.5 TH/MM3 (1.0-4.8); MEAN CELL VOLUME 82.9 FL (80.0-100.0); MEAN CORPUSCULAR HEMOGLOBIN 28.5 PG (27.0-34.0); MEAN CORPUSCULAR HGB CONC 34.3 % (32.0-36.0); MONO % 6.8 % (0.0-8.0); NEUT % 61.7 % (16.0-70.0); PLATELET COUNT 246 TH/MM3 (150-450); RED BLOOD COUNT 4.45 MIL/MM3 (4.00-5.30); RED CELL DISTRIBUTION WIDTH 11.4 % (11.6-17.2); WHITE BLOOD COUNT 5.6 TH/MM3 (4.0-11.0)
[2016-10-03 08:30] VITALS: O2SAT 100
[2016-10-03 08:35] LABS: CHLORIDE 105 MEQ/L (98-107); POTASSIUM 3.8 MEQ/L (3.5-5.1); SODIUM (NA) 138 MEQ/L (136-145)
[2016-10-03 08:39] LABS: ANION GAP 7 MEQ/L (5-15); APTT (PATIENT) 26.8 SEC (24.3-30.1); BLOOD UREA NITROGEN 10 MG/DL (7-18); INTERNATIONAL NORMALIZED RATIO 0.9 RATIO; PROTHROMBIN TIME - PATIENT 10.2 SEC (9.8-11.6)
--- NOTE | 2016-10-03 08:41 | RADRPT ---
EXAM DATE/TIME: 10/03/2016 08:12 [facility] COMPARISON: No previous studies available for comparison. INDICATIONS : Shortness of breath since yesterday. MEDICAL HISTORY : None. SURGICAL HISTORY : lumpectomy. ENCOUNTER: Initial ACUITY: 1 day PAIN SCORE: 0/10 LOCATION: Bilateral chest FINDINGS: A single view of the chest demonstrates the lungs to be symmetrically aerated without evidence of mas s, infiltrate or effusion. The cardiomediastinal contours are unremarkable. Osseous structures are intact. CONCLUSION: No acute disease. Sánchez Justice MD on October 03, 2016 at 8:39 Board Certified Radiologist. This report was verified electronically.
[2016-10-03 08:42] LABS: ALT (GPT) 35 U/L (10-53); AST (GOT) 24 U/L (15-37); GLOMERULAR FILTRATION RATE 85 ML/MIN (>89)
[2016-10-03] MEDS ORDERED: MULTTAB67 PO (08:42)
[2016-10-03] MEDS ORDERED: TURM500C3 PO (08:42)
[2016-10-03] MEDS ORDERED: OMEGCAP PO (08:42)
[2016-10-03 08:43] LABS: TOTAL BILIRUBIN ADULT 0.3 MG/DL (0.2-1.0)
[2016-10-03 08:45] LABS: ALKALINE PHOSPHATASE 95 U/L (45-117)
--- NOTE | 2016-10-03 08:56 | RADRPT ---
EXAM DATE/TIME: 10/03/2016 08:27 [facility] COMPARISON: CT ABDOMEN & PELVIS W/O CONTRAST, December 13, 2014, 22:14. INDICATIONS : Left flank pain, stone vs infection. ORAL CONTRAST: No oral contrast ingested. RADIATION DOSE: 26.08 CTDIvol (mGy) MEDICAL HISTORY : Hypertension. Endometriosis, chronic back pain. Left lumpectomy. SURGICAL HISTORY : Tubal ligation. ENCOUNTER: Initial ACUITY: 2 days PAIN SCALE: 7/10 LOCATION: Left flank TECHNIQUE: Volumetric scanning of the abdomen and pelvis was performed. Using automated exposure control and ad justment of the mA and/or kV according to patient size, radiation dose was kept as low as reasonably achievable to obtain optimal diagnostic quality images. DICOM format image data is available electro nically for review and comparison. FINDINGS: LOWER LUNGS: The visualized lower lungs are clear. LIVER: Homogeneous density without lesion. There is no dilation of the biliary tree. Cholecystectomy. SPLEEN: Normal size without lesion. PANCREAS: Within normal limits. KIDNEYS: Normal in size and shape. There is no mass, stone, or hydronephrosis. ADRENAL GLANDS: Within normal limits. VASCULAR: There is no aortic aneurysm. BOWEL/MESENTERY: The stomach, small bowel, and colon demonstrate no acute abnormality. There is no free intraperitone al air or fluid. Evidence of previous surgery along the cecum likely from appendectomy. ABDOMINAL WALL: Within normal limits. RETROPERITONEUM: There is some prominent retroperitoneal adenopathy seen along the right common iliac vasculature ante riorly measuring 1.6 x 1.7 cm. Prominent adenopathy along the right pelvic sidewall is noted includin g one anteriorly measuring 1.2 x 1.8 cm. And other adenopathy lung the right pelvic sidewall measures 1.2 x 2.2 cm. BLADDER: No wall thickening or mass. REPRODUCTIVE: Uterus is absent. INGUINAL: There is no lymphadenopathy or hernia on the left. Mildly prominent right inguinal adenopathy measure s 2.0 x 0.8 cm.. MUSCULOSKELETAL: Within normal limits for patient age. CONCLUSION: 1. No acute inflammatory process. 2. Prominent retroperitoneal and right pelvic sidewall adenopathy. Lymphoma should be excluded. 3. Status post hysterectomy. 4. No renal calculi or hydronephrosis. Sánchez Justice MD on October 03, 2016 at 8:43 Board Certified Radiologist. This report was verified electronically.
[2016-10-03] MEDS ORDERED: CEPH-460 PO (09:19)
[2016-10-03] MEDS ORDERED: TRAM50TA PO (09:19)
[2016-10-03 09:35] VITALS: BP 140/86; PULSE 68; RESP 18; O2SAT 100
[2016-10-03 09:38] VITALS: BP 140/86
[2016-10-04] MEDS ORDERED: ZITHTAB PO (20:29)
== END 2016-10-03 09:40 | disposition home or self-care (01) ==
LOC: PHED 07:22
DX: R59.0 Localized enlarged lymph nodes (principal); R10.9 Unspecified abdominal pain; R31.9 Hematuria, unspecified
CPT/HCPCS: 71010; 74176; 80053; 81001; 83690; 84703; 85025; 85610; 85730; 87086; 96361; 96374; 96375; 99285; J1885; J2405; J7030

== ENCOUNTER 2016-10-04 14:28 | Emergency (ER) | payer MEDICAID ==
[~2016-10-04] VITALS: Ht 160 cm; Wt 96.2 kg
[~2016-10-04 14:28] MED LIST changes: +CEPH-460 PO; +MULTTAB67 PO; +OMEGCAP PO; +TRAM50TA PO; +TURM500C3 PO; -ULTR37.55 PO
[2016-10-04] MEDS ORDERED: IOHEXOL 350 MG/ML 10 ML VIAL (for RAD DIAG) IVCONTRAST ONE (14:29)
[2016-10-04 15:12] VITALS: BP 142/92; PULSE 78; RESP 12; TEMP 98.4; O2SAT 100
[2016-10-04] MEDS ORDERED: SODIUM CHLORIDE 0.9% FLUSH 10 ML FLUSH IVF PRN (16:45)
[2016-10-04] MEDS ORDERED: SODIUM CHLOR 0.9% 1000 ML INJ 1,000 ML IV ONE (16:45)
--- NOTE | 2016-10-04 16:46 | PD ---
HPI Chief Complaint: chest discomfort Time Seen by Provider: 16:40 Travel History International Travel<30 days: No Contact w/Intl Traveler<30days: No Traveled to known affect area: No History of Present Illness HPI 40-year-old female patient seen yesterday and diagnosed with abdominal lymphadenopathy, presents to the ER today because she states that she has noticed other swelling lymph nodes on her thighs, and has been having left- sided chest discomfort which she currently rates at a 6 out of 10. She states she just does not feel well, has nausea, chills, shortness of breath. She denies any vomiting, abdominal pains, diarrhea, or other symptoms. She had a workup yesterday including CAT scan of the abdomen which was negative. Modifying Factors: None Associated Signs & Symptoms: Nausea, enlarged lymph nodes, chest discomfort, shortness of breath Risk Factors: None PFSH Past Medical History Hx Anticoagulant Therapy: No Anemia: Yes Arthritis: Yes (RA) Blood Disorders: No Heart Rhythm Problems: Yes (PRE-SVT) Cardiovascular Problems: Yes (htn on meds) Diabetes: No Diminished Hearing: No Herniated Disk: Yes (two) Hypertension: Yes Kidney Stones: Yes Musculoskeletal: Yes (CHRONIC BACK PAIN) Reproductive: Yes (R OVARY ADHESION, ENDOMETRIOSIS) Immunizations Current: No Migraines: Yes Menopausal: Yes : 3 Para: 3 Ovarian Cysts: Yes Tubal Ligation: Yes Past Surgical History Abdominal Surgery: Yes (HAD LAP 07/03/06) Appendectomy: Yes Body Medical Devices: DX WITH TUMOR RIGHT OVARY Section: Yes (X3) Cholecystectomy: Yes Gynecologic Surgery: Yes (, LAPAROSCOPIES) Hysterectomy: Yes (2003) Other Surgery: Yes (LEFT BREADT LUMPECTOMY) Social History Alcohol Use: No Tobacco Use: No (smoked cigs for 3 yrs) Substance Use: No Allergies-Medications (Allergen,Severity, Reaction): Coded Allergies: benzoin (Unverified Allergy, Severe, rash, 10/04/16) ketorolac (Unverified Allergy, Severe, RASH, 10/04/16) metoclopramide (Unverified Allergy, Severe, AGGITATION/INCREASED HR, ) prochlorperazine (Unverified Allergy, Severe, AGGITATION/INCREASED HR, ) storax (Unverified Allergy, Severe, rash, 10/04/16) jorge balsam (Unverified Allergy, Severe, rash, 10/04/16) Reported Meds & Prescriptions Reported Meds & Active Scripts Active Tramadol (Tramadol HCl) 50 Mg Tab 50 Mg PO Q6H PRN Keflex (Cephalexin) 500 Mg Cap 500 Mg PO Q6H 5 Days Reported Turmeric (Turmeric (Curcuma Longa)) 500 Mg Cap 1 Cap PO BID [place]-3 Fish Oil/Vitamin (Fish Oil-Cholecalciferol) 1,000-1,000 Mg Cap 1 Cap PO DAILY Multiple Vitamin 1 Tab 1 Tab PO DAILY [place] (Hydrocodone-Acetaminophen) 10-325 Mg Tab 1 Tab PO TID Atenolol 100 Mg Tab 100 Mg PO DAILY Ibuprofen 800 Mg Tab 800 Mg PO BID PRN Review of Systems Except as stated in HPI: all other systems reviewed are Neg Physical Exam Narrative GENERAL: Well-developed young female patient currently in mild distress. Awake and oriented 3. SKIN: Focused skin assessment warm/dry. HEAD: Atraumatic. Normocephalic. EYES: Pupils equal and round. No scleral icterus. No injection or drainage. ENT: No nasal bleeding or discharge. Mucous membranes pink and moist. NECK: Trachea midline. No JVD. CARDIOVASCULAR: Regular rate and rhythm. No murmur appreciated. RESPIRATORY: No accessory muscle use. Clear to auscultation. Breath sounds equal bilaterally. GASTROINTESTINAL: Abdomen soft, non-tender, nondistended. Hepatic and splenic margins not palpable. MUSCULOSKELETAL: No obvious deformities. No clubbing. No cyanosis. No edema. NEUROLOGICAL: Awake and alert. No obvious cranial nerve deficits. Motor grossly within normal limits. Normal speech. PSYCHIATRIC: Appropriate mood and affect; insight and judgment normal. Data Data Last Documented VS Vital Signs Date Time Temp Pulse Resp B/P (MAP) Pulse Ox O2 Delivery O2 Flow Rate FiO2 10/04/16 19:01 98.6 84 16 142/71 (94) 100 Room Air Orders Orders Electrocardiogram (10/04/16 16:40) Ckmb (Isoenzyme) Profile (10/04/16 16:40) Complete Blood Count With Diff (10/04/16 16:40) Comprehensive Metabolic Panel (10/04/16 16:40) D-Dimer (10/04/16 16:40) Magnesium (Mg) (10/04/16 16:40) Prothrombin Time / Inr (Pt) (10/04/16 16:40) Act Partial Throm Time (Ptt) (10/04/16 16:40) Troponin I (10/04/16 16:40) Chest, Single Ap (10/04/16 16:40) Ecg Monitoring (10/04/16 16:40) Bilateral Bp Monitoring (10/04/16 16:40) Iv Access Insert/Monitor (10/04/16 16:40) Oximetry (10/04/16 16:40) Oxygen Administration (10/04/16 16:40) Sodium Chloride 0.9% Flush (Ns Flush) (10/04/16 16:45) Sodium Chlor 0.9% 1000 Ml Inj (Ns 1000 M (10/04/16 16:45) Tramadol (Ultram) (10/04/16 17:45) Ct Thorax/ Chest W Iv Contrast (10/04/16 18:23) Iohexol 350 Inj (Omnipaque 350 Inj) (10/04/16 14:29) Labs Laboratory Tests Test 10/04/16 16:45 White Blood Count 6.6 TH/MM3 Red Blood Count 4.13 MIL/MM3 Hemoglobin 12.0 GM/DL Hematocrit 34.1 % Mean Corpuscular Volume 82.5 FL Mean Corpuscular Hemoglobin 29.1 PG Mean Corpuscular Hemoglobin Concent 35.2 % Red Cell Distribution Width 11.3 % Platelet Count 209 TH/MM3 Mean Platelet Volume 8.0 FL Neutrophils (%) (Auto) 69.3 % Lymphocytes (%) (Auto) 21.6 % Monocytes (%) (Auto) 6.0 % Eosinophils (%) (Auto) 2.4 % Basophils (%) (Auto) 0.7 % Neutrophils # (Auto) 4.6 TH/MM3 Lymphocytes # (Auto) 1.4 TH/MM3 Monocytes # (Auto) 0.4 TH/MM3 Eosinophils # (Auto) 0.2 TH/MM3 Basophils # (Auto) 0.0 TH/MM3 CBC Comment DIFF FINAL Differential Comment Prothrombin Time 11.1 SEC Prothromb Time International Ratio 1.0 RATIO Activated Partial Thromboplast Time 27.7 SEC D-Dimer Quantitative (PE/DVT) 0.21 MG/L FEU Blood Urea Nitrogen 8 MG/DL Creatinine 0.72 MG/DL Random Glucose 90 MG/DL Total Protein 7.9 GM/DL Albumin 4.0 GM/DL Calcium Level 8.9 MG/DL Magnesium Level 1.9 MG/DL Alkaline Phosphatase 99 U/L Aspartate Amino Transf (AST/SGOT) 25 U/L Alanine Aminotransferase (ALT/SGPT) 30 U/L Total Bilirubin 0.4 MG/DL Sodium Level 139 MEQ/L Potassium Level 3.9 MEQ/L Chloride Level 106 MEQ/L Carbon Dioxide Level 26.0 MEQ/L Anion Gap 7 MEQ/L Estimat Glomerular Filtration Rate 91 ML/MIN Total Creatine Kinase 91 U/L Troponin I LESS THAN 0.02 NG/ML MDM Medical Decision Making Medical Screen Exam Complete: Yes Emergency Medical Condition: Yes Medical Record Reviewed: Yes Interpretation(s) EKG shows NSR, no ST elevation or depression, and no arrhythmias. No significant T-wave inversions. Laboratory Tests Test 10/04/16 16:45 Hematocrit 34.1 % (35.0-46.0) Red Cell Distribution Width 11.3 % (11.6-17.2) Troponin I LESS THAN 0.02 NG/ML Differential Diagnosis Chest discomfort, shortness of breath, lymphadenopathy: Viral syndrome versus bronchitis versus pneumonia versus ACS versus lymphoma versus PE Narrative Course Initial chest x-ray and EKG did not show any signs of acute processes. Lab work shows negative cardiac enzymes and d-dimer. There is no significant metabolic abnormalities. Vital signs are stable in the ER. However, patient states that whenever she gets up she becomes fairly symptomatic, short of breath , and dizzy. She states that she wants to find out what is going on with her chest and she has been told by her radiology friend that she may have lymphadenopathy in the lungs is causing her shortness of breath. She has been told previously that she will need her lymph nodes biopsy for further diagnosis. At this point, patient is fairly anxious and I suspect that anxiety may be a component here. However, CAT scan of the chest has been ordered for further evaluation as well. Physician Communication Physician Communication Case is signed out to Dr. Garcia at 7 PM pending CAT scan. Diagnosis Primary Impression: Shortness of breath Additional Impression: Lymphadenopathy Condition: Stable Rich Landers MD Oct 04, 2016 16:46
[2016-10-04 16:55] VITALS: O2SAT 96
[2016-10-04 17:02] LABS: AUTOMATED NEUTROPHIL # 4.6 TH/MM3 (1.8-7.7); BASOPHIL % 0.7 % (0.0-2.0); EOSINOPHIL # 0.2 TH/MM3 (0-0.4); EOSINOPHIL % 2.4 % (0.0-4.0); HEMATOCRIT 34.1 % (35.0-46.0); HEMO FLAGS DIFF FINAL; LYMPH % 21.6 % (9.0-44.0); LYMPHOCYTE # 1.4 TH/MM3 (1.0-4.8); MEAN CELL VOLUME 82.5 FL (80.0-100.0); MEAN CORPUSCULAR HEMOGLOBIN 29.1 PG (27.0-34.0); MEAN CORPUSCULAR HGB CONC 35.2 % (32.0-36.0); NEUT % 69.3 % (16.0-70.0); PLATELET COUNT 209 TH/MM3 (150-450); RED BLOOD COUNT 4.13 MIL/MM3 (4.00-5.30); RED CELL DISTRIBUTION WIDTH 11.3 % (11.6-17.2); WHITE BLOOD COUNT 6.6 TH/MM3 (4.0-11.0)
[2016-10-04 17:05] VITALS: BP_SYST 123; BP_SYST 144; BP_DIAS 80; BP_DIAS 81; PULSE 82; RESP 18; O2SAT 97
[2016-10-04 17:09] LABS: CHLORIDE 106 MEQ/L (98-107); POTASSIUM 3.9 MEQ/L (3.5-5.1); SODIUM (NA) 139 MEQ/L (136-145)
[2016-10-04 17:13] LABS: ANION GAP 7 MEQ/L (5-15); BLOOD UREA NITROGEN 8 MG/DL (7-18); MAGNESIUM 1.9 MG/DL (1.5-2.5)
[2016-10-04 17:16] LABS: ALT (GPT) 30 U/L (10-53); AST (GOT) 25 U/L (15-37); GLOMERULAR FILTRATION RATE 91 ML/MIN (>89)
[2016-10-04 17:18] LABS: TOTAL BILIRUBIN ADULT 0.4 MG/DL (0.2-1.0)
[2016-10-04 17:19] LABS: ALKALINE PHOSPHATASE 99 U/L (45-117)
[2016-10-04 17:22] LABS: APTT (PATIENT) 27.7 SEC (24.3-30.1); PROTHROMBIN TIME - PATIENT 11.1 SEC (9.8-11.6)
--- NOTE | 2016-10-04 17:30 | RADRPT ---
EXAM DATE/TIME: 10/04/2016 16:56 [facility] COMPARISON: CHEST SINGLE AP, October 03, 2016, 8:12. INDICATIONS : Chest pain. MEDICAL HISTORY : None. SURGICAL HISTORY : None. ENCOUNTER: Initial ACUITY: 1 day PAIN SCORE: 6/10 LOCATION: Bilateral chest FINDINGS: The lungs are clear without infiltrate, nodule, or mass. There is no appreciable pleural effusion fo r technique. Heart and mediastinum are unremarkable. CONCLUSION: No acute cardiopulmonary disease. Peyton Granger MD on October 04, 2016 at 17:28 Board Certified Radiologist. This report was verified electronically.
[2016-10-04] MEDS ORDERED: traMADol HCL 50 MG TAB PO ONE (17:45)
[2016-10-04 18:01] LABS: CREATINE KINASE 91 U/L (26-192)
[2016-10-04 18:27] VITALS: PULSE 97; RESP 18; O2SAT 99
[2016-10-04 19:01] VITALS: BP 142/71; PULSE 84; RESP 16; TEMP 98.6; O2SAT 100
--- NOTE | 2016-10-04 19:20 | PD ---
Physical Exam Date Seen by Provider: Oct 04, 2016 Time Seen by Provider: 19:18 Narrative Accepted in transfer of care from Dr. Landers Data Data Last Documented VS Vital Signs Date Time Temp Pulse Resp B/P (MAP) Pulse Ox O2 Delivery O2 Flow Rate FiO2 10/04/16 20:10 83 17 142/74 (96) 98 Room Air 10/04/16 19:01 98.6 Orders Orders Electrocardiogram (10/04/16 16:40) Ckmb (Isoenzyme) Profile (10/04/16 16:40) Complete Blood Count With Diff (10/04/16 16:40) Comprehensive Metabolic Panel (10/04/16 16:40) D-Dimer (10/04/16 16:40) Magnesium (Mg) (10/04/16 16:40) Prothrombin Time / Inr (Pt) (10/04/16 16:40) Act Partial Throm Time (Ptt) (10/04/16 16:40) Troponin I (10/04/16 16:40) Chest, Single Ap (10/04/16 16:40) Ecg Monitoring (10/04/16 16:40) Bilateral Bp Monitoring (10/04/16 16:40) Iv Access Insert/Monitor (10/04/16 16:40) Oximetry (10/04/16 16:40) Oxygen Administration (10/04/16 16:40) Sodium Chloride 0.9% Flush (Ns Flush) (10/04/16 16:45) Sodium Chlor 0.9% 1000 Ml Inj (Ns 1000 M (10/04/16 16:45) Tramadol (Ultram) (10/04/16 17:45) Ct Thorax/ Chest W Iv Contrast (10/04/16 18:23) Iohexol 350 Inj (Omnipaque 350 Inj) (10/04/16 14:29) Labs Laboratory Tests Test 10/04/16 16:45 White Blood Count 6.6 TH/MM3 Red Blood Count 4.13 MIL/MM3 Hemoglobin 12.0 GM/DL Hematocrit 34.1 % Mean Corpuscular Volume 82.5 FL Mean Corpuscular Hemoglobin 29.1 PG Mean Corpuscular Hemoglobin Concent 35.2 % Red Cell Distribution Width 11.3 % Platelet Count 209 TH/MM3 Mean Platelet Volume 8.0 FL Neutrophils (%) (Auto) 69.3 % Lymphocytes (%) (Auto) 21.6 % Monocytes (%) (Auto) 6.0 % Eosinophils (%) (Auto) 2.4 % Basophils (%) (Auto) 0.7 % Neutrophils # (Auto) 4.6 TH/MM3 Lymphocytes # (Auto) 1.4 TH/MM3 Monocytes # (Auto) 0.4 TH/MM3 Eosinophils # (Auto) 0.2 TH/MM3 Basophils # (Auto) 0.0 TH/MM3 CBC Comment DIFF FINAL Differential Comment Prothrombin Time 11.1 SEC Prothromb Time International Ratio 1.0 RATIO Activated Partial Thromboplast Time 27.7 SEC D-Dimer Quantitative (PE/DVT) 0.21 MG/L FEU Blood Urea Nitrogen 8 MG/DL Creatinine 0.72 MG/DL Random Glucose 90 MG/DL Total Protein 7.9 GM/DL Albumin 4.0 GM/DL Calcium Level 8.9 MG/DL Magnesium Level 1.9 MG/DL Alkaline Phosphatase 99 U/L Aspartate Amino Transf (AST/SGOT) 25 U/L Alanine Aminotransferase (ALT/SGPT) 30 U/L Total Bilirubin 0.4 MG/DL Sodium Level 139 MEQ/L Potassium Level 3.9 MEQ/L Chloride Level 106 MEQ/L Carbon Dioxide Level 26.0 MEQ/L Anion Gap 7 MEQ/L Estimat Glomerular Filtration Rate 91 ML/MIN Total Creatine Kinase 91 U/L Troponin I LESS THAN 0.02 NG/ML [facility] Medical Record Reviewed: Yes Supervised Visit with DOLORES: No Interpretation(s) CBC & BMP Diagram 10/04/16 16:45 Total Protein 7.9, Albumin 4.0, Calcium Level 8.9, Magnesium Level 1.9, Alkaline Phosphatase 99, Aspartate Amino Transf (AST/SGOT) 25, Alanine Aminotransferase (ALT/SGPT) 30, Total Bilirubin 0.4 Vital Signs Date Time Temp Pulse Resp B/P (MAP) Pulse Ox O2 Delivery O2 Flow Rate FiO2 10/04/16 19:01 98.6 84 16 142/71 (94) 100 Room Air 10/04/16 18:27 97 18 99 10/04/16 17:05 82 18 123/80 (94) 97 Room Air 144/81 (102) 10/04/16 16:58 80 10/04/16 16:56 (109) 10/04/16 16:55 96 Room Air 10/04/16 16:55 96 Room Air 10/04/16 15:12 98.4 78 12 142/92 (109) [address] thorax w contrast: CONCLUSION: 1. Left lower lobe pneumonia. 2. Right lung nodule, repeat noncontrast chest CT is suggested in 6 months as a conservative follow up. 3. Indeterminate lymph nodes in mediastinum and left supraclavicular area could be reactive, however metastatic disease is difficult to exclude. Peyton Granger MD on October 04, 2016 at 19:21 Board Certified Radiologist. This report was verified electronically. CXR: nad Differential Diagnosis Accepted in transfer of care from Dr. Landers; please refer to her dictation Narrative Course Accepted in transfer of care from Dr. Landers; requesting pain medication --waiting on CT results, has already received a dose of tramadol Patient rating on CT results Declines any additional medication in the emergency department Imaging study reveals some lymphadenopathy as well as an infiltrate in the left lower lung field concerning for pneumonia; patient informed of imaging results lab values are normal patient now reports that she has been experiencing some night time time subjective fever and chills but has not and she checked her temperature for temperature elevation or fever. Patient does have a primary care provider and is aware of the need to follow-up with her primary care provider this week regarding the findings of her CT chest and CT abdomen. Diagnosis Primary Impression: Shortness of breath Additional Impressions: Lymphadenopathy Lung infiltrate on CT Referrals: Family Practice Physician call for appointment Patient Instructions: General Instructions Departure Forms: Tests/Procedures, Work Release Special Instructions: no work x 1 day Additional Instruction: Complete course of antibiotic as prescribed Monitor temperature every 4 hours with thermometer take acetaminophen as needed for fever 100.4F or greater May take as tolerated ibuprofen/Advil/Motrin every 6-8 hours for fever 100.4F or greater or for pain associated with inflammation Follow-up with your primary care provider call office in a.m. to schedule follow -up appointment this week Return to the emergency department for any concerns or change in condition No work times one day Med/Other Pt SpecificInfo: Prescription(s) given Scripts Azithromycin (Zithromax Z-Phil) 250 Mg Dspk 250 MG PO DIRECTED for Infection, #1 DSPK 0 Refills 500 MG (2 tabs) day 1, then 1 tab days 2-5. Prov: Patricia Garcia MD 10/04/16 Disposition: 01 DISCHARGE HOME Condition: Stable Patricia Garcia MD Oct 04, 2016 19:20
--- NOTE | 2016-10-04 19:27 | RADRPT ---
EXAM DATE/TIME: 10/04/2016 18:44 [facility] COMPARISON: No previous studies available for comparison. INDICATIONS : Left sided chest pain. IV CONTRAST: 70 cc Omnipaque 350 (iohexol) IV RADIATION DOSE: 20.77 CTDIvol (mGy) MEDICAL HISTORY : Hypertension. SURGICAL HISTORY : Appendectomy. Cholecystectomy.Hysterectomy. ENCOUNTER: Initial ACUITY: 2 days PAIN SCALE: 4/10 LOCATION: Left chest TECHNIQUE: Volumetric scanning of the chest was performed. Using automated exposure control and adjustment of t he mA and/or kV according to patient size, radiation dose was kept as low as reasonably achievable to obtain optimal diagnostic quality images. DICOM format image data is available electronically for review and comparison. Follow-up recommendations for detected pulmonary nodules are based at a minimum on nodule size and pa tient risk factors according to Fleischner Society Guidelines. FINDINGS: Airspace nodular process is present left lower lobe suspicious for pneumonia. There is also an a pproximate 6 mm noncalcified nodule right middle lobe. Pleural-based triangular density is present in the right lower lobe posteriorly has the appearance of scar. There are lymph nodes within the medias tinum the largest in subcarinal area measures 2.3 cm in size. There also supraclavicular lymph nodes the largest one measures 2 cm in size on the left side. These are indeterminant. There is no pleural effusion. CONCLUSION: 1. Left lower lobe pneumonia. 2. Right lung nodule, repeat noncontrast chest CT is suggested in 6 months as a conservative follow u p. 3. Indeterminate lymph nodes in mediastinum and left supraclavicular area could be reactive, however metastatic disease is difficult to exclude. Peyton Granger MD on October 04, 2016 at 19:21 Board Certified Radiologist. This report was verified electronically.
[2016-10-04 20:10] VITALS: BP 142/74; PULSE 83; RESP 17; O2SAT 98
[2016-10-04] MEDS ORDERED: ZITHTAB PO (20:29)
--- NOTE | 2016-10-04 21:43 | EKG ---
Date Performed: 10/04/2016 Time Performed: 15:16:37 PTAGE: 40 years EKG: Sinus rhythm NONSPECIFIC INTRAVENTRICULAR CONDUCTION DELAY BORDERLINE ECG PREVIOUS TRACING : 06/05/2007 15.45 Compared to previous tracing, heart rate has slowed. DOCTOR: Prince Gavin Interpretating Date/Time 10/04/2016 21:42:34
== END 2016-10-04 20:54 | disposition home or self-care (01) ==
LOC: PHED 14:28
DX: J18.9 Pneumonia, unspecified organism (principal); R59.1 Generalized enlarged lymph nodes; I10 Essential (primary) hypertension; Z87.442 Personal history of urinary calculi; Z79.899 Other long term (current) drug therapy; M06.9 Rheumatoid arthritis, unspecified; Z87.891 Personal history of nicotine dependence
CPT/HCPCS: 71010; 71260; 80053; 82550; 83735; 84484; 85025; 85379; 85610; 85730; 93005; 99285; J7030; Q9967

== ENCOUNTER 2016-10-06 15:33 | Emergency (ER) | payer MEDICAID ==
[~2016-10-06] VITALS: Ht 154.9 cm; Wt 92.0 kg
[~2016-10-06 15:33] MED LIST changes: +ZITHTAB PO
[2016-10-06 15:35] VITALS: BP 165/105; PULSE 121; RESP 20; TEMP 99; O2SAT 100
--- NOTE | 2016-10-06 16:43 | PD ---
HPI Chief Complaint: Headache Time Seen by Provider: 16:39 (Gogo Troncoso) Time Seen by Provider: 16:39 (Lázaro Shelton MD) Travel History International Travel<30 days: No Contact w/Intl Traveler<30days: No Traveled to known affect area: No (Gogo Troncoso) History of Present Illness HPI 32-year-old female with history of migraine headaches, currently being treated for pneumonia presents to the emergency department today for evaluation of headache. Patient states she has been feeling short of breath and dizzy. Dates that she feels that she is on a boat. She does have a history of vertigo , but she does not believe this has anything to do with that. States that her migraine headache typically does not feel like what she is feeling now. Patient has mild nausea without vomiting. She saw her primary care provider today for evaluation of the lymphadenopathy identified in her abdomen and mediastinum on CT exam. When she told him about her symptoms, she alleges that he advised she come to the emergency department. She is taking her antibiotic as prescribed. She has no other symptoms to report at this time. (Gogo Troncoso) [facility] Past Medical History Hx Anticoagulant Therapy: No Anemia: Yes (PAST) Arthritis: Yes (RA) Blood Disorders: No Heart Rhythm Problems: Yes (PRE-SVT) Cardiovascular Problems: Yes (htn on meds) Diabetes: No Diminished Hearing: No Herniated Disk: Yes (two) Hypertension: Yes Kidney Stones: Yes Musculoskeletal: Yes (CHRONIC BACK PAIN) Reproductive: Yes (R OVARY ADHESION, ENDOMETRIOSIS) Immunizations Current: No Migraines: Yes Menopausal: Yes : 3 Para: 3 Ovarian Cysts: Yes Tubal Ligation: Yes (Gogo Troncoso) Past Surgical History Abdominal Surgery: Yes (HAD LAP 07/03/06) Appendectomy: Yes Body Medical Devices: DX WITH TUMOR RIGHT OVARY Section: Yes (X3) Cholecystectomy: Yes Gynecologic Surgery: Yes (, LAPAROSCOPIES) Hysterectomy: Yes (2003) Other Surgery: Yes (LEFT BREAST LUMPECTOMY) (Gogo Troncoso) Social History Alcohol Use: No Tobacco Use: No (smoked cigs for 3 yrs) Substance Use: No (Gogo Troncoso) Allergies-Medications (Allergen,Severity, Reaction): Coded Allergies: benzoin (Verified Allergy, Severe, rash, 10/06/16) ketorolac (Verified Allergy, Severe, RASH, 10/06/16) storax (Verified Allergy, Severe, rash, 10/06/16) jorge balsam (Verified Allergy, Severe, rash, 10/06/16) metoclopramide (Verified Adverse Reaction, Severe, AGGITATION/INCREASED HR , 10/06/16) prochlorperazine (Verified Adverse Reaction, Severe, AGGITATION/INCREASED HR, 10/06/16) Reported Meds & Prescriptions Reported Meds & Active Scripts Active Keflex (Cephalexin) 500 Mg Cap 500 Mg PO Q12H Reported Turmeric (Turmeric (Curcuma Longa)) 500 Mg Cap 1 Cap PO BID Tilly-3 Fish Oil/Vitamin (Fish Oil-Cholecalciferol) 1,000-1,000 Mg Cap 1 Cap PO DAILY Multiple Vitamin 1 Tab 1 Tab PO DAILY [place] (Hydrocodone-Acetaminophen) 10-325 Mg Tab 1 Tab PO TID Atenolol 100 Mg Tab 100 Mg PO DAILY Ibuprofen 800 Mg Tab 800 Mg PO BID PRN (Lázaro Shelton MD) Review of Systems Except as stated in HPI: all other systems reviewed are Neg (Gogo Troncoso) Physical Exam Narrative GENERAL: Well-nourished female patient, ambulatory with a steady gait, no acute distress. SKIN: Focused skin assessment warm/dry. HEAD: Atraumatic. Normocephalic. EYES: Pupils equal and round. No scleral icterus. No injection or drainage. ENT: No nasal bleeding or discharge. Mucous membranes pink and moist. NECK: Trachea midline. No JVD. CARDIOVASCULAR: Regular rate and rhythm. No murmur appreciated. RESPIRATORY: No accessory muscle use. Clear to auscultation. Breath sounds equal bilaterally. GASTROINTESTINAL: Abdomen soft, non-tender, nondistended. Hepatic and splenic margins not palpable. MUSCULOSKELETAL: No obvious deformities. No clubbing. No cyanosis. No edema. NEUROLOGICAL: Awake and alert. No obvious cranial nerve deficits. Motor grossly within normal limits. Normal speech. (Gogo Troncoso) Data Data Last Documented VS Vital Signs Date Time Temp Pulse Resp B/P (MAP) Pulse Ox O2 Delivery O2 Flow Rate FiO2 10/06/16 20:39 10/06/16 19:02 89 20 100 Room Air 10/06/16 15:35 99.0 (Lázaro Shelton MD) Orders Orders Electrocardiogram (10/06/16 16:50) Complete Blood Count With Diff (10/06/16 16:50) Comprehensive Metabolic Panel (10/06/16 16:50) Prothrombin Time / Inr (Pt) (10/06/16 16:50) Act Partial Throm Time (Ptt) (10/06/16 16:50) Lactic Acid Sepsis Protocol (10/06/16 16:50) Urinalysis - C+S If Indicated (10/06/16 16:50) Blood Culture (10/06/16 16:50) Chest, Single Ap (10/06/16 16:50) Blood Glucose (10/06/16 16:50) Ecg Monitoring (10/06/16 16:50) Iv Access Insert/Monitor (10/06/16 16:50) Oximetry (10/06/16 16:50) Oxygen Administration (10/06/16 16:50) Ct Brain W/O Iv Contrast(Rout) (10/06/16 16:50) Sodium Chlor 0.9% 1000 Ml Inj (Ns 1000 M (10/06/16 16:50) Sodium Chlor 0.9% 1000 Ml Inj (Ns 1000 M (10/06/16 16:50) Ed Urine Pregnancytest Poc (10/06/16 16:50) Orthostatic Vital Signs (10/06/16 17:15) Urine Culture (10/06/16 19:09) Dexamethasone Inj (Decadron Inj) (10/06/16 20:15) Acetaminophen (Tylenol) (10/06/16 20:15) Sumatriptan Inj (Imitrex Inj) (10/06/16 20:15) (Lázaro Shelton MD) Labs Laboratory Tests Test 10/06/16 17:49 10/06/16 18:00 10/06/16 19:09 White Blood Count 5.4 TH/MM3 Red Blood Count 4.26 MIL/MM3 Hemoglobin 12.3 GM/DL Hematocrit 36.2 % Mean Corpuscular Volume 84.9 FL Mean Corpuscular Hemoglobin 29.0 PG Mean Corpuscular Hemoglobin Concent 34.1 % Red Cell Distribution Width 12.1 % Platelet Count 219 TH/MM3 Mean Platelet Volume 8.2 FL Neutrophils (%) (Auto) 62.4 % Lymphocytes (%) (Auto) 24.8 % Monocytes (%) (Auto) 8.6 % Eosinophils (%) (Auto) 3.7 % Basophils (%) (Auto) 0.5 % Neutrophils # (Auto) 3.4 TH/MM3 Lymphocytes # (Auto) 1.3 TH/MM3 Monocytes # (Auto) 0.5 TH/MM3 Eosinophils # (Auto) 0.2 TH/MM3 Basophils # (Auto) 0.0 TH/MM3 CBC Comment DIFF FINAL Differential Comment Blood Urea Nitrogen 8 MG/DL Creatinine 0.72 MG/DL Random Glucose 101 MG/DL Total Protein 8.2 GM/DL Albumin 4.2 GM/DL Calcium Level 9.3 MG/DL Alkaline Phosphatase 97 U/L Aspartate Amino Transf (AST/SGOT) 19 U/L Alanine Aminotransferase (ALT/SGPT) 30 U/L Total Bilirubin 0.3 MG/DL Sodium Level 136 MEQ/L Potassium Level 3.4 MEQ/L Chloride Level 101 MEQ/L Carbon Dioxide Level 28.4 MEQ/L Anion Gap 7 MEQ/L Estimat Glomerular Filtration Rate 91 ML/MIN Lactic Acid Level 1.4 mmol/L Prothrombin Time 11.3 SEC Prothromb Time International Ratio 1.0 RATIO Activated Partial Thromboplast Time 27.3 SEC Urine Color YELLOW Urine Turbidity HAZY Urine pH 6.0 Urine Specific [place] 1.019 Urine Protein NEG mg/dL Urine Glucose (UA) NEG mg/dL Urine Ketones NEG mg/dL Urine Occult Blood TRACE Urine Nitrite NEG Urine Bilirubin NEG Urine Urobilinogen LESS THAN 2.0 MG/DL Urine Leukocyte Esterase SMALL Urine RBC 1 /hpf Urine WBC 8 /hpf Urine Squamous Epithelial Cells 3 /hpf Urine Amorphous Sediment RARE Urine Bacteria RARE /hpf Urine Mucus FEW /lpf Microscopic Urinalysis Comment CATH-CULTURE IND (Lázaro Shelton MD) MDM Medical Decision Making Medical Screen Exam Complete: Yes Emergency Medical Condition: Yes Medical Record Reviewed: Yes Differential Diagnosis Electrolyte abnormality versus migraine headache with or without aura versus dehydration versus sepsis Narrative Course 40 year-old female presents to the emergency department for evaluation of multiple complaints. Patient appears without distress. She has a very steady gait. Neuro exam is nonfocal. Orthostatic signs are within normal limits. CT and basic labs are ordered for further evaluation. [address] has not yet been complete Laboratory Tests Test 10/06/16 17:49 10/06/16 18:00 10/06/16 19:09 White Blood Count 5.4 TH/MM3 Red Blood Count 4.26 MIL/MM3 Hemoglobin 12.3 GM/DL Hematocrit 36.2 % Mean Corpuscular Volume 84.9 FL Mean Corpuscular Hemoglobin 29.0 PG Mean Corpuscular Hemoglobin Concent 34.1 % Red Cell Distribution Width 12.1 % Platelet Count 219 TH/MM3 Mean Platelet Volume 8.2 FL Neutrophils (%) (Auto) 62.4 % Lymphocytes (%) (Auto) 24.8 % Monocytes (%) (Auto) 8.6 % Eosinophils (%) (Auto) 3.7 % Basophils (%) (Auto) 0.5 % Neutrophils # (Auto) 3.4 TH/MM3 Lymphocytes # (Auto) 1.3 TH/MM3 Monocytes # (Auto) 0.5 TH/MM3 Eosinophils # (Auto) 0.2 TH/MM3 Basophils # (Auto) 0.0 TH/MM3 CBC Comment DIFF FINAL Differential Comment Blood Urea Nitrogen 8 MG/DL Creatinine 0.72 MG/DL Random Glucose 101 MG/DL Total Protein 8.2 GM/DL Albumin 4.2 GM/DL Calcium Level 9.3 MG/DL Alkaline Phosphatase 97 U/L Aspartate Amino Transf (AST/SGOT) 19 U/L Alanine Aminotransferase (ALT/SGPT) 30 U/L Total Bilirubin 0.3 MG/DL Sodium Level 136 MEQ/L Potassium Level 3.4 MEQ/L Chloride Level 101 MEQ/L Carbon Dioxide Level 28.4 MEQ/L Anion Gap 7 MEQ/L Estimat Glomerular Filtration Rate 91 ML/MIN Lactic Acid Level 1.4 mmol/L Prothrombin Time 11.3 SEC Prothromb Time International Ratio 1.0 RATIO Activated Partial Thromboplast Time 27.3 SEC Urine Color YELLOW Urine Turbidity HAZY Urine pH 6.0 Urine Specific [place] 1.019 Urine Protein NEG mg/dL Urine Glucose (UA) NEG mg/dL Urine Ketones NEG mg/dL Urine Occult Blood TRACE Urine Nitrite NEG Urine Bilirubin NEG Urine Urobilinogen LESS THAN 2.0 MG/DL Urine Leukocyte Esterase SMALL Urine RBC 1 /hpf Urine WBC 8 /hpf Urine Squamous Epithelial Cells 3 /hpf Urine Amorphous Sediment RARE Urine Bacteria RARE /hpf Urine Mucus FEW /lpf Microscopic Urinalysis Comment CATH-CULTURE IND Last Impressions Head CT 10/06/16 1650 Signed Impressions: Service Date/Time: Thursday, October 06, 2016 19:18 - CONCLUSION: Negative noncontrast head CT. No acute finding is visualized. Enrico Huynh MD Chest X-Ray 10/06/16 1650 Signed Impressions: Service Date/Time: Thursday, October 06, 2016 17:08 - CONCLUSION: No acute disease. Jeremy Solano Jr., MD I have reviewed the findings with the patient. She'll be discharged home at this time to follow-up with primary care provider. She agrees return immediately if any acute worsening symptoms. (Gogo Troncoso) Sepsis Criteria SIRS Criteria (2 or more): Temp > 100.9 or < 96.8, Heart rate over 90 Sepsis Criteria (SIRS+source): Infect source susp/known (Gogo Troncoso) Diagnosis Primary Impression: Migraine Qualified Codes: G43.909 - Migraine, unspecified, not intractable, without status migrainosus Additional Impressions: UTI (urinary tract infection) Qualified Codes: N39.0 - Urinary tract infection, site not specified; R31.9 - Hematuria, unspecified Dizziness, nonspecific Referrals: Neurologist Primary Care Physician [employer] Patient Instructions: Dizziness (ED), General Instructions, Migraine Headache ( ED), Urinary Tract Infection in Women (ED) Departure Forms: Tests/Procedures, Work Release Enter return to work date: Oct 08, 2016 Additional Instructions: Maintain adequate oral hydration Follow-up with primary care provider Continue antibiotics already prescribed Start [id number] probiotics estrogen the package to help reduce GI upset and to replace normal gut scott Return [facility] to the [facility] department with any acute worsening symptoms Med/Other Pt SpecificInfo: Prescription(s) given (Gogo Troncoso) Scripts Cephalexin (Keflex) 500 Mg Cap 500 MG PO Q12H for Infection, #14 CAP 0 Refills Prov: Gogo Troncoso 10/06/16 Disposition: 01 DISCHARGE HOME Condition: Stable Gogo Troncoso Oct 06, 2016 16:43 Lázaro Shelton MD Oct 07, 2016 21:33
[2016-10-06] MEDS ORDERED: SODIUM CHLOR 0.9% 1000 ML INJ 1,000 ML IV ONE (16:50)
[2016-10-06] MEDS ORDERED: SODIUM CHLOR 0.9% 1000 ML INJ 800 ML IV ONE (16:50)
[2016-10-06 17:11] VITALS: RESP 16; O2SAT 98
[2016-10-06 17:18] VITALS: BP_SYST 116; BP_SYST 131; BP_SYST 133; BP_DIAS 74; BP_DIAS 77; BP_DIAS 81; RESP 17; RESP 18
--- NOTE | 2016-10-06 17:20 | RADRPT ---
EXAM DATE/TIME: 10/06/2016 17:08 [facility] COMPARISON: CHEST SINGLE AP, October 04, 2016, 16:56. INDICATIONS : Chest pain. MEDICAL HISTORY : None. SURGICAL HISTORY : None. ENCOUNTER: Initial ACUITY: 1 day PAIN SCORE: 0/10 LOCATION: Bilateral chest FINDINGS: A single view of the chest demonstrates the lungs to be symmetrically aerated without evidence of mas s, infiltrate or effusion. The cardiomediastinal contours are unremarkable. Osseous structures are intact. CONCLUSION: No acute disease. Jeremy Solano Jr., MD on October 06, 2016 at 17:15 Board Certified Radiologist. This report was verified electronically.
[2016-10-06 17:57] LABS: AUTOMATED NEUTROPHIL # 3.4 TH/MM3 (1.8-7.7); BASOPHIL % 0.5 % (0.0-2.0); EOSINOPHIL # 0.2 TH/MM3 (0-0.4); EOSINOPHIL % 3.7 % (0.0-4.0); HEMATOCRIT 36.2 % (35.0-46.0); HEMO FLAGS DIFF FINAL; LYMPH % 24.8 % (9.0-44.0); LYMPHOCYTE # 1.3 TH/MM3 (1.0-4.8); MEAN CELL VOLUME 84.9 FL (80.0-100.0); MEAN CORPUSCULAR HGB CONC 34.1 % (32.0-36.0); MONO % 8.6 % (0.0-8.0); NEUT % 62.4 % (16.0-70.0); PLATELET COUNT 219 TH/MM3 (150-450); RED BLOOD COUNT 4.26 MIL/MM3 (4.00-5.30); RED CELL DISTRIBUTION WIDTH 12.1 % (11.6-17.2); WHITE BLOOD COUNT 5.4 TH/MM3 (4.0-11.0)
[2016-10-06 18:13] LABS: ANION GAP 7 MEQ/L (5-15); AST (GOT) 19 U/L (15-37); BICARBONATE 28.4 MEQ/L (21.0-32.0); BLOOD UREA NITROGEN 8 MG/DL (7-18); CHLORIDE 101 MEQ/L (98-107); GLOMERULAR FILTRATION RATE 91 ML/MIN (>89); POTASSIUM 3.4 MEQ/L (3.5-5.1); SODIUM (NA) 136 MEQ/L (136-145)
[2016-10-06 18:15] LABS: ALT (GPT) 30 U/L (10-53)
[2016-10-06 18:16] LABS: ALKALINE PHOSPHATASE 97 U/L (45-117); TOTAL BILIRUBIN ADULT 0.3 MG/DL (0.2-1.0)
[2016-10-06 19:02] VITALS: BP 127/83; PULSE 89; RESP 20; O2SAT 100
[2016-10-06 19:11] LABS: APTT (PATIENT) 27.3 SEC (24.3-30.1); PROTHROMBIN TIME - PATIENT 11.3 SEC (9.8-11.6)
[2016-10-06 19:22] LABS: BACTERIA, URINE RARE /hpf; BLOOD, URINE TRACE (NEG); GLUCOSE,URINE NEG (NEG); KETONE, URINE NEG (NEG); MUCUS URINE FEW /lpf (OCC); NITRITE,URINE NEG (NEG); SQUAMOUS EPITHELIAL CELL URINE 3 /hpf (0-5); URINE COLOR YELLOW (YELLW/STRAW)
[2016-10-06 19:25] LABS: COMMENT (UR) CATH-CULTURE IND; CULTURE IF INDICATED CATH CULTURE IND
--- NOTE | 2016-10-06 19:52 | RADRPT ---
EXAM DATE/TIME: 10/06/2016 19:18 [facility] COMPARISON: No previous studies available for comparison. INDICATIONS : Cephalgia. RADIATION DOSE: 32.84 CTDIvol (mGy) MEDICAL HISTORY : Hypertension. SURGICAL HISTORY : Hysterectomy. Tubal ligation. ENCOUNTER: Initial ACUITY: 1 day PAIN SCALE: 7/10 LOCATION: cranial TECHNIQUE: Multiple contiguous axial images were obtained of the head. Using automated exposure control and adj ustment of the mA and/or kV according to patient size, radiation dose was kept as low as reasonably a chievable to obtain optimal diagnostic quality images. DICOM format image data is available electro nically for review and comparison. FINDINGS: CEREBRUM: The ventricles are normal. No evidence of midline shift, mass lesion, hemorrhage or acute infarction . No extra-axial fluid collections are seen. POSTERIOR FOSSA: The cerebellum and brainstem are intact. The 4th ventricle is midline. The cerebellopontine angle i s unremarkable. EXTRACRANIAL: Visualized sinuses are clear. SKULL: The calvaria is intact. No evidence of skull fracture. CONCLUSION: Negative noncontrast head CT. No acute finding is visualized. Enrico Huynh MD on October 06, 2016 at 19:49 Board Certified Radiologist. This report was verified electronically.
[2016-10-06] MEDS ORDERED: SUMAtriptan INJ 6 MG/0.5 ML VIAL SQ ONE (20:15)
[2016-10-06] MEDS ORDERED: DEXAMETHASONE SOD PHOS 4 MG/ML VIAL IV PUSH ONE (20:15)
[2016-10-06] MEDS ORDERED: ACETAMINOPHEN 325 MG TAB PO ONE (20:15)
[2016-10-06] MEDS ORDERED: CEPH-460 PO (20:27)
--- NOTE | 2016-10-07 19:51 | EKG ---
Date Performed: 10/06/2016 Time Performed: 17:09:56 PTAGE: 40 years EKG: Sinus rhythm NORMAL ECG PREVIOUS TRACING : 10/04/2016 15.16 Compared to prior tracing no significant change DOCTOR: Anand Gustafson Interpretating Date/Time 10/07/2016 19:50:55
== END 2016-10-06 20:54 | disposition home or self-care (01) ==
LOC: NEPE 15:33
DX: G43.909 Migraine, unspecified, not intractable, without status migrainosus (principal); N39.0 Urinary tract infection, site not specified; M06.9 Rheumatoid arthritis, unspecified
CPT/HCPCS: 70450; 71010; 80053; 81001; 83605; 84703; 85025; 85610; 85730; 86403; 87040; 87086; 87205; 93005; 96360; 99285; J7030

== ENCOUNTER 2016-10-11 12:47 | Observation (INO) | payer MEDICAID ==
[~2016-10-11 12:47] MED LIST changes: -TRAM50TA PO; -ZITHTAB PO
[2016-10-11 12:51] VITALS: BP 138/80; PULSE 75; RESP 20; TEMP 98.7; O2SAT 98
[2016-10-11 14:21] LABS: AUTOMATED NEUTROPHIL # 3.9 TH/MM3 (1.8-7.7); BASOPHIL # 0.1 TH/MM3 (0-0.2); EOSINOPHIL # 0.3 TH/MM3 (0-0.4); EOSINOPHIL % 4.1 % (0.0-4.0); HEMATOCRIT 38.9 % (35.0-46.0); HEMO FLAGS DIFF FINAL; LYMPH % 25.9 % (9.0-44.0); LYMPHOCYTE # 1.6 TH/MM3 (1.0-4.8); MEAN CELL VOLUME 84.9 FL (80.0-100.0); MEAN CORPUSCULAR HEMOGLOBIN 29.4 PG (27.0-34.0); MEAN CORPUSCULAR HGB CONC 34.6 % (32.0-36.0); MONO % 5.9 % (0.0-8.0); NEUT % 63.1 % (16.0-70.0); PLATELET COUNT 264 TH/MM3 (150-450); RED BLOOD COUNT 4.59 MIL/MM3 (4.00-5.30); RED CELL DISTRIBUTION WIDTH 12.2 % (11.6-17.2); WHITE BLOOD COUNT 6.2 TH/MM3 (4.0-11.0)
[2016-10-11] MEDS ORDERED: ONDANSETRON HCL 4 MG/2 ML VIAL IV PUSH ONE (14:30)
[2016-10-11] MEDS ORDERED: ACETAMINOPHEN 500 MG CPLT PO ONE (14:30)
[2016-10-11 14:43] LABS: ALT (GPT) 32 U/L (10-53); ANION GAP 8 MEQ/L (5-15); AST (GOT) 24 U/L (15-37); BICARBONATE 30.2 MEQ/L (21.0-32.0); BLOOD UREA NITROGEN 7 MG/DL (7-18); CHLORIDE 102 MEQ/L (98-107); GLOMERULAR FILTRATION RATE 94 ML/MIN (>89); POTASSIUM 3.8 MEQ/L (3.5-5.1); SODIUM (NA) 140 MEQ/L (136-145)
[2016-10-11 14:46] LABS: ALKALINE PHOSPHATASE 101 U/L (45-117); TOTAL BILIRUBIN ADULT 0.2 MG/DL (0.2-1.0)
[2016-10-11 15:35] LABS: PROTHROMBIN TIME - PATIENT 11.1 SEC (9.8-11.6)
--- NOTE | 2016-10-11 15:35 | PD ---
HPI Chief Complaint: Abnormal Results Time Seen by Provider: 13:19 Travel History International Travel<30 days: No Contact w/Intl Traveler<30days: No Traveled to known affect area: No History of Present Illness HPI This is a 40 year old female who presents to the emergency department with night sweats, myalgias, generalized weakness and headache and shortness of breath this been going on for 1 week, constant, severe, making it difficult for her to exert herself or do her activities of daily living. This is her fifth emergency department visit in a short period of time for the same symptoms. She has had a CT of the chest and a CT abdomen and pelvis demonstrating diffuse lymphadenopathy and there is a concern that she has lymphoma. She has Medicaid and follows with Dr. Herring. She's been having difficulty getting a referral for a biopsy because of her insurance. She came back in today because the other day she had a blood culture which was positive and she wasn't feeling any better so the charge nurse told her to come in. She denies any fevers or chills but has had significant fatigue and her shortness of breath is worsening. PFSH Past Medical History Hx Anticoagulant Therapy: No Anemia: Yes (PAST) Arthritis: Yes (RA) Blood Disorders: No Heart Rhythm Problems: Yes (PRE-SVT) Cardiovascular Problems: Yes (htn on meds) Diabetes: No Diminished Hearing: No Herniated Disk: Yes (two) Hypertension: Yes Kidney Stones: Yes Musculoskeletal: Yes (CHRONIC BACK PAIN) Reproductive: Yes (R OVARY ADHESION, ENDOMETRIOSIS) Immunizations Current: No Migraines: Yes Influenza Vaccination: No ?: Not Menopausal: Yes : 3 Para: 3 Ovarian Cysts: Yes Tubal Ligation: Yes Past Surgical History Abdominal Surgery: Yes (HAD LAP 07/03/06) Appendectomy: Yes Body Medical Devices: DX WITH TUMOR RIGHT OVARY Section: Yes (X3) Cholecystectomy: Yes Gynecologic Surgery: Yes (, LAPAROSCOPIES) Hysterectomy: Yes Other Surgery: Yes (LEFT BREAST LUMPECTOMY) Social History Alcohol Use: No Tobacco Use: No (smoked cigs for 3 yrs) Substance Use: No (PT DENIES ) Allergies-Medications (Allergen,Severity, Reaction): Coded Allergies: benzoin (Verified Allergy, Severe, rash, 10/11/16) ketorolac (Verified Allergy, Severe, RASH, 10/11/16) storax (Verified Allergy, Severe, rash, 10/11/16) jorge balsam (Verified Allergy, Severe, rash, 10/11/16) metoclopramide (Verified Adverse Reaction, Severe, AGGITATION/INCREASED HR , 10/11/16) prochlorperazine (Verified Adverse Reaction, Severe, AGGITATION/INCREASED HR, 10/11/16) Reported Meds & Prescriptions Reported Meds & Active Scripts Active Reported Turmeric (Turmeric (Curcuma Longa)) 500 Mg Cap 1 Cap PO BID [place]-3 Fish Oil/Vitamin (Fish Oil-Cholecalciferol) 1,000-1,000 Mg Cap 1 Cap PO DAILY Multiple Vitamin 1 Tab 1 Tab PO DAILY Atenolol 100 Mg Tab 100 Mg PO DAILY Ibuprofen 800 Mg Tab 800 Mg PO BID PRN Review of Systems Except as stated in HPI: all other systems reviewed are Neg Physical Exam Narrative GENERAL:Well appearing, no acute distress SKIN: Focused skin assessment warm and dry. HEAD: Atraumatic. Normocephalic. EYES: Pupils equal and round. No injection or drainage. ENT: Moist mucous membranes NECK: Trachea midline. CARDIOVASCULAR: Regular rate and rhythm. No murmur appreciated. RESPIRATORY: Clear to auscultation. Breath sounds equal bilaterally. GASTROINTESTINAL: Abdomen soft, non-tender, nondistended. MUSCULOSKELETAL: No obvious deformities. NEUROLOGICAL: Awake and alert. No obvious cranial nerve deficits. Moving all extremities. PSYCHIATRIC: Appropriate mood and affect; insight and judgment normal. Data Data Last Documented VS Vital Signs Date Time Temp Pulse Resp B/P (MAP) Pulse Ox O2 Delivery O2 Flow Rate FiO2 10/11/16 12:51 98.7 75 20 138/80 (99) 98 Room Air Orders Orders Complete Blood Count With Diff (10/11/16 13:19) Comprehensive Metabolic Panel (10/11/16 13:19) Ldh Serum (10/11/16 13:44) [place] Sedimentation Rate (10/11/16 13:44) Blood Culture (10/11/16 13:44) Acetaminophen (Tylenol) (10/11/16 14:30) Ondansetron Inj (Zofran Inj) (10/11/16 14:30) Prothrombin Time / Inr (Pt) (10/11/16 14:25) Act Partial Throm Time (Ptt) (10/11/16 14:25) Labs Laboratory Tests Test 10/11/16 13:30 10/11/16 14:10 10/11/16 14:45 White Blood Count 6.2 TH/MM3 Red Blood Count 4.59 MIL/MM3 Hemoglobin 13.5 GM/DL Hematocrit 38.9 % Mean Corpuscular Volume 84.9 FL Mean Corpuscular Hemoglobin 29.4 PG Mean Corpuscular Hemoglobin Concent 34.6 % Red Cell Distribution Width 12.2 % Platelet Count 264 TH/MM3 Mean Platelet Volume 8.7 FL Neutrophils (%) (Auto) 63.1 % Lymphocytes (%) (Auto) 25.9 % Monocytes (%) (Auto) 5.9 % Eosinophils (%) (Auto) 4.1 % Basophils (%) (Auto) 1.0 % Neutrophils # (Auto) 3.9 TH/MM3 Lymphocytes # (Auto) 1.6 TH/MM3 Monocytes # (Auto) 0.4 TH/MM3 Eosinophils # (Auto) 0.3 TH/MM3 Basophils # (Auto) 0.1 TH/MM3 CBC Comment DIFF FINAL Differential Comment Blood Urea Nitrogen 7 MG/DL Creatinine 0.70 MG/DL Random Glucose 104 MG/DL Total Protein 8.7 GM/DL Albumin 4.4 GM/DL Calcium Level 9.3 MG/DL Alkaline Phosphatase 101 U/L Aspartate Amino Transf (AST/SGOT) 24 U/L Alanine Aminotransferase (ALT/SGPT) 32 U/L Total Bilirubin 0.2 MG/DL Sodium Level 140 MEQ/L Potassium Level 3.8 MEQ/L Chloride Level 102 MEQ/L Carbon Dioxide Level 30.2 MEQ/L Anion Gap 8 MEQ/L Estimat Glomerular Filtration Rate 94 ML/MIN Lactate Dehydrogenase 220 U/L [facility] Medical Decision Making Medical Screen Exam Complete: Yes Emergency Medical Condition: Yes Medical Record Reviewed: Yes Interpretation(s) No leukocytosis Electrolytes are reassuring Differential Diagnosis Lymphoma, bacteremia, sepsis, dehydration, HIV Narrative Course This is a 40-year-old female who presents to the emergency department with multiple constitutional symptoms having had 2 CT scans concerning for widespread lymphadenopathy. The concern is that the patient has lymphoma. I spoke to Dr. Torres who is on-call for oncology. He agreed the patient would benefit from observation and an inpatient biopsy. He said she could follow up with Dr. Brown with oncology. I suspect the blood culture positive for micrococcus was a contaminant but repeat blood cultures will be obtained given the patient's constitutional symptoms. Diagnosis Primary Impression: Diffuse lymphadenopathy Admitting Information Admitting Physician Requests: Observation Va Zaman MD Oct 11, 2016 15:35
[2016-10-11] MEDS ORDERED: SENNOSIDES 8.6 MG TAB PO PRN (16:00)
[2016-10-11] MEDS ORDERED: LACTULOSE SYRUP 20 GM/30 ML CUP PO PRN (16:00)
[2016-10-11] MEDS ORDERED: ACETAMINOPHEN 325 MG TAB PO PRN (16:00)
[2016-10-11] MEDS ORDERED: NALOXONE HCL 0.4 MG/ML AMP IV PRN (16:00)
[2016-10-11] MEDS ORDERED: BISACODYL 10 MG SUPP RECTAL PRN (16:00)
[2016-10-11] MEDS ORDERED: MAGNESIUM HYDROXIDE SUSP 30 ML CUP PO PRN (16:00)
--- NOTE | 2016-10-11 16:16 | HHI.HP ---
HPI Service [facility] Primary Care Physician Aubrey Herring DO Admission Diagnosis lymphadenopathy Diagnoses: Chief Complaint: weakness, myalgias, headache Travel History International Travel<30 Days: No Contact w/Intl Traveler <30 Da: No Traveled to Known Affected Are: No History of Present Illness Written by Fiorella Dave, acting as scribe for Dr. Booker on 10/11/16 at 16:20. This note was transcribed by scribe LAUREN Lopez. I, Dr. Devin Booker personally performed the history, physical exam, and medical decision making; and confirmed the accuracy of the information in the transcribed note. Authenticated by Dr. Devin Booker on 10/11/16 at 22:11. 40-year-old female with history of hypertension, endometriosis with multiple abdominal surgeries, chronic back pain, presents with a 2week history of worsening fatigue, weakness, poor appetite, shortness of breath, nausea, and diaphoresis. She reports diffuse myalgias, chills, and sweats. She feels as though she has the flu. The patient has been taking ibuprofen with minimal relief. Any minimal exertion causes extreme fatigue. She has also lost weight, 217lbs to 206lbs, over the past month. She also reports a diffuse headache, not consistent with her previous migraines. She was diagnosed with pneumonia on 10/04 , recently completed a Z-Phil. She recently had a lumpectomy of the left breast by Dr. Mares in [place], [place], and was told it was benign fibrocystic. The patient has now noticed another lump on the right breast. She also reports an abnormal swelling on the right proximal medial thigh which is new for her and she has some pressure around the right groin. She denies any chest pain, palpitations, edema. She denies any other medical complaints at this time. Review of Systems Except as stated in HPI: all other systems reviewed are Neg Past Family Social History Past Medical History Hypertension Endometriosis Chronic back pain Nephrolithiasis Migraines Past Surgical History Appendectomy Cholecystectomy Laparoscopic surgeries for endometriosis section x3 Hysterectomy with bilateral oophorectomy Left breast lumpectomy Reported Medications Turmeric (Turmeric (Curcuma Longa)) 500 Mg Cap 1 Cap PO BID [place]-3 Fish Oil/Vitamin (Fish Oil-Cholecalciferol) 1,000-1,000 Mg Cap 1 Cap PO DAILY Multiple Vitamin 1 Tab 1 Tab PO DAILY Atenolol 50mg bid Ibuprofen 800 Mg Tab 800 Mg PO BID PRN [place] prn Allergies: Coded Allergies: benzoin (Verified Allergy, Severe, rash, 10/11/16) ketorolac (Verified Allergy, Severe, RASH, 10/11/16) storax (Verified Allergy, Severe, rash, 10/11/16) jorge balsam (Verified Allergy, Severe, rash, 10/11/16) metoclopramide (Verified Adverse Reaction, Severe, AGGITATION/INCREASED HR , 10/11/16) prochlorperazine (Verified Adverse Reaction, Severe, AGGITATION/INCREASED HR, 10/11/16) Active Ordered Medications Current Medications Medications (Trade) Dose Ordered Sig/Blake Route Start Time Stop Time Status Last Admin (NS Flush) 2 ml UNSCH PRN IV FLUSH 10/11/16 16:00 UNV (NS Flush) 2 ml BID IV FLUSH 10/11/16 21:00 UNV (Tylenol) 650 mg Q4H PRN PO 10/11/16 16:00 UNV (Zofran Inj) 4 mg Q6H PRN IVP 10/11/16 16:00 UNV (Narcan Inj) 0.4 mg UNSCH PRN IV 10/11/16 16:00 UNV (Heather-Colace) 1 tab BID PO 10/11/16 21:00 UNV (Milk Of Magnesia Liq) 30 ml Q12H PRN PO 10/11/16 16:00 UNV (Senokot) 17.2 mg Q12H PRN PO 10/11/16 16:00 UNV (Dulcolax Supp) 10 mg DAILY PRN RECTAL 10/11/16 16:00 UNV (Lactulose Liq) 30 ml DAILY PRN PO 10/11/16 16:00 UNV Family History Father age 52 from accident Maternal Grandfather with gastric cancer Social History Smoked cigarettes from age 18 to 20 Denies any alcohol or illicit drug use Physical Exam Vital Signs Vital Signs Date Time Temp Pulse Resp B/P (MAP) Pulse Ox O2 Delivery O2 Flow Rate FiO2 10/11/16 12:51 98.7 75 20 138/80 (99) 98 Room Air Physical Exam GENERAL: Well-nourished, well-developed middle aged female patient in [facility]. SKIN: Warm and dry. No rash. HEAD: Normocephalic. Atraumatic. EYES: Pupils equal and round. No scleral icterus. No injection or drainage. ENT: No nasal bleeding or discharge. Mucous membranes pink and moist. NECK: Supple. Trachea midline. No significant palpable lymphadenopathy throughout submandibular, cervical, axilla, or inguinal areas. CARDIOVASCULAR: Regular rate and rhythm. S1, S2 noted. No murmur appreciated. RESPIRATORY: No accessory muscle use. Clear to auscultation. Breath sounds equal bilaterally. GASTROINTESTINAL: Abdomen soft, non-tender, nondistended. Normoactive bowel sounds x4. MUSCULOSKELETAL: No obvious deformities. Extremities without clubbing, cyanosis , or edema. Right proximal medial thigh with edema, fullness, nontender. NEUROLOGICAL: Awake and alert. No obvious cranial nerve deficits. Motor grossly within normal limits. Moves all extremities spontaneously. Normal speech. PSYCHIATRIC: Appropriate mood and affect; insight and judgment normal. Laboratory Laboratory Tests Test 10/11/16 13:30 10/11/16 14:10 10/11/16 14:45 White Blood Count 6.2 Red Blood Count 4.59 Hemoglobin 13.5 Hematocrit 38.9 Mean Corpuscular Volume 84.9 Mean Corpuscular Hemoglobin 29.4 Mean Corpuscular Hemoglobin Concent 34.6 Red Cell Distribution Width 12.2 Platelet Count 264 Mean Platelet Volume 8.7 Neutrophils (%) (Auto) 63.1 Lymphocytes (%) (Auto) 25.9 Monocytes (%) (Auto) 5.9 Eosinophils (%) (Auto) 4.1 Basophils (%) (Auto) 1.0 Neutrophils # (Auto) 3.9 Lymphocytes # (Auto) 1.6 Monocytes # (Auto) 0.4 Eosinophils # (Auto) 0.3 Basophils # (Auto) 0.1 CBC Comment DIFF FINAL Differential Comment Blood Urea Nitrogen 7 Creatinine 0.70 Random Glucose 104 Total Protein 8.7 Albumin 4.4 Calcium Level 9.3 Alkaline Phosphatase 101 Aspartate Amino Transf (AST/SGOT) 24 Alanine Aminotransferase (ALT/SGPT) 32 Total Bilirubin 0.2 Sodium Level 140 Potassium Level 3.8 Chloride Level 102 Carbon Dioxide Level 30.2 Anion Gap 8 Estimat Glomerular Filtration Rate 94 Erythrocyte Sedimentation Rate 15 Lactate Dehydrogenase 220 Prothrombin Time 11.1 Prothromb Time International Ratio 1.0 Activated Partial Thromboplast Time 26.0 Date/Time Source Procedure Growth Status 10/11/16 14:10 Blood Peripheral Aerobic Blood Culture Pending Received 10/11/16 14:10 Blood Peripheral Anaerobic Blood Culture Pending Received Result Diagram: 10/11/16 1330 10/11/[address] 10/03 images reviewed, shows prominent retroperitoneal and right pelvic sidewall adenopathy; lymphoma should be excluded. Chest CT 10/04 images reviewed, shows right lung nodule; indeterminate lymph nodes in mediastinum and left supraclavicular area could be reactive, however metastatic disease is difficult to exclude. Caprini VTE Risk Assessment Caprini VTE Risk Assessment: No/Low Risk (score <= 1) Caprini Risk Assessment Model Point Value = 1 Point Value = 2 Point Value = 3 Point Value = 5 Age 41-60 Minor surgery BMI > 25 kg/m2 Swollen legs Varicose veins or History of unexplained or recurrent spontaneous Oral contraceptives or hormone replacement Sepsis (< 1 month) Serious lung disease, including pneumonia (< 1 month) Abnormal pulmonary function Acute myocardial infarction Congestive heart failure (< 1 month) History of inflammatory bowel disease Medical patient at bed rest Age 61-74 Arthroscopic surgery Major open surgery (> 45 min) Laparoscopic surgery (> 45 min) Malignancy Confined to bed (> 72 hours) Immobilizing plaster cast Central venous access Age >= 75 History of VTE Family history of VTE Factor V Leiden Prothrombin [id number] Lupus anticoagulant Anticardiolipin antibodies Elevated serum homocysteine Heparin-induced thrombocytopenia Other congenital or acquired thrombophilia Stroke (< 1 month) Elective arthroplasty Hip, pelvis, or leg fracture Acute spinal cord injury (< 1 month) Prophylaxis Regimen Total Risk Factor Score Risk Level Prophylaxis Regimen 0-1 Low Early ambulation 2 Moderate Order ONE of the following: *Sequential Compression Device (SCD) *Heparin 5000 units SQ BID 3-4 Higher Order ONE of the following medications: *Heparin 5000 units SQ TID *Enoxaparin/Lovenox 40 mg SQ daily (WT < 150 kg, CrCl > 30 mL/min) *Enoxaparin/Lovenox 30 mg SQ daily (WT < 150 kg, CrCl > 10-29 mL/min) *Enoxaparin/Lovenox 30 mg SQ BID (WT < 150 kg, CrCl > 30 mL/min) AND/OR *Sequential Compression Device (SCD) 5 or more Highest Order ONE of the following medications: *Heparin 5000 units SQ TID (Preferred with Epidurals) *Enoxaparin/Lovenox 40 mg SQ daily (WT < 150 kg, CrCl > 30 mL/min) *Enoxaparin/Lovenox 30 mg SQ daily (WT < 150 kg, CrCl > 10-29 mL/min) *Enoxaparin/Lovenox 30 mg SQ BID (WT < 150 kg, CrCl > 30 mL/min) AND *Sequential Compression Device (SCD) Assessment and Plan Problem List: (1) Diffuse lymphadenopathy ICD Code: R59.1 - Generalized enlarged lymph nodes Status: Acute Assessment and Plan 40-year-old female with history of hypertension, endometriosis with multiple abdominal surgeries, chronic back pain, presents with a 2week history of worsening fatigue, weakness, poor appetite, shortness of breath, nausea, and diaphoresis. Widespread Lymphadenopathy: concern for Lymphoma. Patient with multiple constitutional symptoms as above. -Abdominal CT 10/03 images reviewed, shows prominent retroperitoneal and right pelvic sidewall adenopathy; lymphoma should be excluded. -Chest CT 10/04 images reviewed, shows right lung nodule; indeterminate lymph nodes in mediastinum and left supraclavicular area could be reactive, however metastatic disease is difficult to exclude. -ER MD discussed with on-call oncologist Dr. Torres, recommended observation admission for evaluation by Dr. Brown and inpatient biopsy -Supportive treatment with antiemetics and pain control prn -Plan to consult oncology Dr. Brown in the am -Consider general surgeon vs cardiothoracic surgeon vs IR consultation for biopsy, appreciate oncology's assistance Hypertension: chronic, stable -continue patient's Atenolol 50mg bid -monitor BP, adjust antihypertensives as needed All other medical conditions stable, continue home medications as appropriate. DVT Prophylaxis: teds/SCDs; avoid chemoprophylaxis with likely upcoming biopsy Discussed Condition With Patient, ER Fiorella Hong PA-C Oct 11, 2016 16:16 [place] Booker DO Oct 11, 2016 22:12
[2016-10-11] MEDS ORDERED: NORC5TAB PO (16:49)
[2016-10-11] MEDS ORDERED: ATEN100T PO (16:49)
[2016-10-11] MEDS ORDERED: ACETAMINOPHEN/HYDROcodone 325 MG/5 MG TAB PO PRN (17:00)
[2016-10-11 20:15] VITALS: BP 132/88; PULSE 80; RESP 20; TEMP 98.7; O2SAT 100
[2016-10-11] MEDS: ATENOLOL 50 MG TAB PO SCH (21:36)
[2016-10-11] MEDS: DOCUSATE SODIUM 50 MG/SENNA 8.6 MG TAB PO SCH (21:36)
[2016-10-11] MEDS: SODIUM CHLORIDE 0.9% FLUSH 10 ML FLUSH IV FLUSH SCH (21:37)
[2016-10-11] MEDS: ACETAMINOPHEN/HYDROcodone 325 MG/10 MG TAB PO PRN (22:25)
[2016-10-11 23:53] VITALS: BP 123/73; PULSE 78; RESP 18; TEMP 98.2; O2SAT 98
[2016-10-12 05:29] VITALS: BP 115/72; PULSE 57; RESP 18; TEMP 98.1; O2SAT 98
[2016-10-12 05:33] LABS: AUTOMATED NEUTROPHIL # 3.3 TH/MM3 (1.8-7.7); BASOPHIL # 0.1 TH/MM3 (0-0.2); BASOPHIL % 0.8 % (0.0-2.0); EOSINOPHIL # 0.3 TH/MM3 (0-0.4); EOSINOPHIL % 5.6 % (0.0-4.0); HEMATOCRIT 38.6 % (35.0-46.0); HEMO FLAGS DIFF FINAL; LYMPH % 31.4 % (9.0-44.0); LYMPHOCYTE # 1.9 TH/MM3 (1.0-4.8); MEAN CELL VOLUME 84.5 FL (80.0-100.0); MEAN CORPUSCULAR HEMOGLOBIN 28.1 PG (27.0-34.0); MEAN CORPUSCULAR HGB CONC 33.3 % (32.0-36.0); MONO % 8.7 % (0.0-8.0); NEUT % 53.5 % (16.0-70.0); PLATELET COUNT 239 TH/MM3 (150-450); RED BLOOD COUNT 4.57 MIL/MM3 (4.00-5.30); WHITE BLOOD COUNT 6.2 TH/MM3 (4.0-11.0)
[2016-10-12] MEDS: ACETAMINOPHEN/HYDROcodone 325 MG/10 MG TAB PO PRN ×4 (05:41→21:04)
[2016-10-12 06:00] LABS: BICARBONATE 27.8 MEQ/L (21.0-32.0)
[2016-10-12 08:05] VITALS: BP 120/84; PULSE 75; RESP 19; TEMP 98.1; O2SAT 99
--- NOTE | 2016-10-12 08:49 | HHI.PR ---
Subjective Remarks Follow up for widespread lymphadenopathy. The patient reports continued fatigue , weakness, headache, poor appetite. She states she didn't sleep well. She denies any chest pain, cough, shortness of breath, or abdominal pains. She has no new medical complaints at this time. Objective Vitals Vital Signs Date Time Temp Pulse Resp B/P (MAP) Pulse Ox O2 Delivery O2 Flow Rate FiO2 10/12/16 08:05 98.1 75 19 120/84 (96) 99 10/12/16 06:48 18 10/12/16 05:29 98.1 57 18 115/72 (86) 98 10/11/16 23:53 98.2 78 18 123/73 (90) 98 10/11/16 20:15 98.7 80 20 132/88 (103) 100 10/11/16 18:29 10/11/16 12:51 98.7 75 20 138/80 (99) 98 Room Air Result Diagram: 10/12/16 0435 10/12/16 0435 Objective Remarks GENERAL: Well-nourished, well-developed middle aged female patient in [facility]. SKIN: Warm and dry. No rash. HEENT: Normocephalic. Atraumatic. Pupils equal and round. Mucous membranes pink and moist. NECK: Supple. Trachea midline. No significant palpable lymphadenopathy throughout submandibular, cervical, axilla, or inguinal areas. CARDIOVASCULAR: Regular rate and rhythm. S1, S2 noted. No murmur appreciated. RESPIRATORY: No accessory muscle use. Clear to auscultation. Breath sounds equal bilaterally. GASTROINTESTINAL: Abdomen soft, non-tender, nondistended. Normoactive bowel sounds x4. MUSCULOSKELETAL: No obvious deformities. Extremities without clubbing, cyanosis , or edema. Right proximal medial thigh with edema, fullness, nontender. Calves nontender bilaterally. NEUROLOGICAL: Awake and alert. No obvious cranial nerve deficits. Motor grossly within normal limits. Moves all extremities spontaneously. Normal speech. PSYCHIATRIC: Appropriate mood and affect; insight and judgment normal. Medications and IVs Current Medications Medications (Trade) Dose Ordered Sig/Blake Route Start Time Stop Time Status Last Admin (NS Flush) 2 ml UNSCH PRN IV FLUSH 10/11/16 16:00 (NS Flush) 2 ml BID IV FLUSH 10/11/16 21:00 10/11/16 21:37 (Tylenol) 650 mg Q4H PRN PO 10/11/16 16:00 (Zofran Inj) 4 mg Q6H PRN IVP 10/11/16 16:00 (Narcan Inj) 0.4 mg UNSCH PRN IV 10/11/16 16:00 (Heather-Colace) 1 tab BID PO 10/11/16 21:00 10/11/16 21:36 (Milk Of Magnesia Liq) 30 ml Q12H PRN PO 10/11/16 16:00 (Senokot) 17.2 mg Q12H PRN PO 10/11/16 16:00 (Dulcolax Supp) 10 mg DAILY PRN RECTAL 10/11/16 16:00 (Lactulose Liq) 30 ml DAILY PRN PO 10/11/16 16:00 (Tenormin) 50 mg BID PO 10/11/16 21:00 10/11/16 21:36 ([place] 5-325 Mg) 1 tab Q6H PRN PO 10/11/16 17:00 10/11/16 17:58 (Theragran) 1 tab DAILY PO 10/12/16 09:00 ([place] 10-325 Mg) 1 tab Q4H PRN PO 10/11/16 20:00 10/12/16 05:41 A/P Problem List: (1) Diffuse lymphadenopathy ICD Code: R59.1 - Generalized enlarged lymph nodes Status: Acute Assessment and Plan 40-year-old female with history of hypertension, endometriosis with multiple abdominal surgeries, chronic back pain, presents with a 2week history of worsening fatigue, weakness, poor appetite, shortness of breath, nausea, and diaphoresis. Widespread Lymphadenopathy: concern for Lymphoma. Patient with multiple constitutional symptoms as above. -Abdominal CT 10/03 images reviewed, shows prominent retroperitoneal and right pelvic sidewall adenopathy; lymphoma should be excluded. -Chest CT 10/04 images reviewed, shows right lung nodule; indeterminate lymph nodes in mediastinum and left supraclavicular area could be reactive, however metastatic disease is difficult to exclude. -ER MD discussed with on-call oncologist Dr. Torres, recommended observation admission for evaluation by Dr. Brown and inpatient biopsy -Supportive treatment with antiemetics and pain control with [place] prn -Consulted oncology -Consulted general surgeon for biopsy Hypertension: chronic, stable -continue patient's Atenolol 50mg bid -monitor BP, adjust antihypertensives as needed All other medical conditions stable, continue home medications as appropriate. DVT Prophylaxis: teds/SCDs; avoid chemoprophylaxis with likely upcoming biopsy Discharge Planning Discharge pending evaluation by oncology, general surgery, and completion of biopsy. Fiorella Dave PA-C Oct 12, 2016 8:49 am
[2016-10-12] MEDS: DOCUSATE SODIUM 50 MG/SENNA 8.6 MG TAB PO SCH ×2 (09:00→21:02)
[2016-10-12] MEDS: MULTIVITAMIN TAB PO SCH (09:00)
[2016-10-12] MEDS: ATENOLOL 50 MG TAB PO SCH ×2 (09:21→21:00)
[2016-10-12] MEDS: SODIUM CHLORIDE 0.9% FLUSH 10 ML FLUSH IV FLUSH SCH ×2 (09:21→21:02)
[2016-10-12] MEDS: ONDANSETRON HCL 4 MG/2 ML VIAL IVP PRN (10:41)
[2016-10-12] MEDS: SODIUM CHLORIDE 0.9% FLUSH 10 ML FLUSH IV FLUSH PRN (10:41)
[2016-10-12 11:14] LABS: BLOOD, URINE NEG (NEG); GLUCOSE,URINE NEG (NEG); KETONE, URINE NEG (NEG); NITRITE,URINE NEG (NEG); URINE COLOR COLORLESS (YELLW/STRAW)
[2016-10-12 11:15] LABS: COMMENT (UR) CULT NOT INDICATED; CULTURE IF INDICATED CULT NOT INDICATED
[2016-10-12 11:56] VITALS: BP 130/80; PULSE 64; RESP 20; TEMP 98.6; O2SAT 99
[2016-10-12] MEDS: MORPHINE SULFATE 4 MG/ML INJ IV PUSH PRN ×2 (12:03→23:24)
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
[2016-10-12 15:51] VITALS: BP 124/75; PULSE 58; RESP 20; TEMP 98.1; O2SAT 100
[2016-10-12 19:27] VITALS: BP_SYST 111; BP_SYST 113; BP_DIAS 58; BP_DIAS 78; PULSE 56; PULSE 82; RESP 18; RESP 20; TEMP 98.3; TEMP 98.5; O2SAT 99
[2016-10-12 23:20] VITALS: BP 124/64; PULSE 66; RESP 20; TEMP 98.2; O2SAT 100
[2016-10-13 04:19] VITALS: BP 111/70; PULSE 64; RESP 18; TEMP 98.4; O2SAT 97
[2016-10-13] MEDS: ONDANSETRON HCL 4 MG/2 ML VIAL IVP PRN ×2 (04:24→14:12)
[2016-10-13] MEDS: ACETAMINOPHEN/HYDROcodone 325 MG/10 MG TAB PO PRN ×3 (04:25→21:11)
[2016-10-13 07:16] VITALS: BP 115/69; PULSE 56; RESP 16; TEMP 98; O2SAT 98
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
[2016-10-13] MEDS: ATENOLOL 50 MG TAB PO SCH ×2 (08:30→21:10)
[2016-10-13] MEDS: DOCUSATE SODIUM 50 MG/SENNA 8.6 MG TAB PO SCH ×2 (08:30→21:10)
[2016-10-13] MEDS: MULTIVITAMIN TAB PO SCH (08:31)
[2016-10-13] MEDS: SODIUM CHLORIDE 0.9% FLUSH 10 ML FLUSH IV FLUSH SCH ×2 (08:31→21:00)
[2016-10-13] MEDS: MORPHINE SULFATE 4 MG/ML INJ IV PUSH PRN ×2 (08:31→18:00)
--- NOTE | 2016-10-13 09:47 | HHI.PR ---
Subjective Remarks Follow up for widespread lymphadenopathy. The patient reports pain throughout the right inguinal area and right upper thigh, relieved by IV Morphine. She did not sleep well, requesting medication to help her sleep. Continues to deny any chest pain, shortness of breath, or abdominal pain. She has no other medical complaints at this time. Objective Vitals Vital Signs Date Time Temp Pulse Resp B/P (MAP) Pulse Ox O2 Delivery O2 Flow Rate FiO2 10/13/16 07:16 98.0 56 16 115/69 (84) 98 10/13/16 05:29 18 10/13/16 04:19 98.4 64 18 111/70 (84) 97 10/13/16 00:04 18 10/12/16 23:20 98.2 66 20 124/64 (84) 100 10/12/16 19:27 98.3 82 20 113/78 (90) 10/12/16 15:51 98.1 58 20 124/75 (91) 100 10/12/16 11:56 98.6 64 20 130/80 (97) 99 Result Diagram: 10/12/1643410/12/16434 Objective Remarks GENERAL: Well-nourished, well-developed middle aged female patient in [facility]. SKIN: Warm and dry. No rash. HEENT: Normocephalic. Atraumatic. Pupils equal and round. Mucous membranes pink and moist. NECK: Supple. Trachea midline. No significant palpable lymphadenopathy throughout submandibular, cervical, axilla, or inguinal areas. CARDIOVASCULAR: Regular rate and rhythm. S1, S2 noted. No murmur appreciated. RESPIRATORY: No accessory muscle use. Clear to auscultation. Breath sounds equal bilaterally. GASTROINTESTINAL: Abdomen soft, non-tender, nondistended. Normoactive bowel sounds x4. MUSCULOSKELETAL: No obvious deformities. Extremities without clubbing, cyanosis , or edema. Right proximal medial thigh with edema, fullness, nontender. Calves nontender bilaterally. NEUROLOGICAL: Awake and alert. No obvious cranial nerve deficits. Motor grossly within normal limits. Moves all extremities spontaneously. Normal speech. PSYCHIATRIC: Appropriate mood and affect; insight and judgment normal. Medications and IVs Current Medications Medications (Trade) Dose Ordered Sig/Blake Route Start Time Stop Time Status Last Admin (NS Flush) 2 ml UNSCH PRN IV FLUSH 10/11/16 16:00 10/12/16 10:41 (NS Flush) 2 ml BID IV FLUSH 10/11/16 21:00 10/13/16 08:31 (Tylenol) 650 mg Q4H PRN PO 10/11/16 16:00 (Zofran Inj) 4 mg Q6H PRN IVP 10/11/16 16:00 10/13/16 04:24 (Narcan Inj) 0.4 mg UNSCH PRN IV 10/11/16 16:00 (Heather-Colace) 1 tab BID PO 10/11/16 21:00 10/13/16 08:30 (Milk Of Magnesia Liq) 30 ml Q12H PRN PO 10/11/16 16:00 (Senokot) 17.2 mg Q12H PRN PO 10/11/16 16:00 (Dulcolax Supp) 10 mg DAILY PRN RECTAL 10/11/16 16:00 (Lactulose Liq) 30 ml DAILY PRN PO 10/11/16 16:00 (Tenormin) 50 mg BID PO 10/11/16 21:00 10/13/16 08:30 ([place] 5-325 Mg) 1 tab Q6H PRN PO 10/11/16 17:00 10/11/16 17:58 (Theragran) 1 tab DAILY PO 10/12/16 09:00 ([place] 10-325 Mg) 1 tab Q4H PRN PO 10/11/16 20:00 10/13/16 04:25 (Morphine Inj) 2 mg Q4H PRN IV PUSH 10/12/16 10:45 10/13/16 08:31 A/P Problem List: (1) Diffuse lymphadenopathy ICD Code: R59.1 - Generalized enlarged lymph nodes Status: Acute Assessment and Plan 40-year-old female with history of hypertension, endometriosis with multiple abdominal surgeries, chronic back pain, presents with a 2week history of worsening fatigue, weakness, poor appetite, shortness of breath, nausea, and diaphoresis. Widespread Lymphadenopathy: concern for Lymphoma. Patient with multiple constitutional symptoms as above. -Abdominal CT 10/03 images reviewed, shows prominent retroperitoneal and right pelvic sidewall adenopathy; lymphoma should be excluded. -Chest CT 10/04 images reviewed, shows right lung nodule; indeterminate lymph nodes in mediastinum and left supraclavicular area could be reactive, however metastatic disease is difficult to exclude. -ER MD discussed with on-call oncologist Dr. Torres, recommended observation admission for evaluation by Dr. Brown and inpatient biopsy -Supportive treatment with antiemetics and pain control with [place] prn and IV morphine prn breakthrough pain -Consulted oncology, discussed with Dr. Brown, appreciate recommendations -Consulted general surgeon for biopsy, plans for inguinal lymph node biopsy today or tomorrow (dependent on OR opening) Hypertension: chronic, stable -continue patient's Atenolol 50mg bid -monitor BP, adjust antihypertensives as needed Insomnia: patient has hx of insomnia, intermittently on Restoril or Ambien at home. Requesting medication -will give Restoril at bedtime All other medical conditions stable, continue home medications as appropriate. DVT Prophylaxis: teds/SCDs; avoid chemoprophylaxis with upcoming biopsy Discharge Planning Discharge pending biopsy today or tomorrow. Fiorella Dave PA-C Oct 13, 2016 9:47 am
[2016-10-13 11:16] VITALS: BP 121/74; PULSE 65; RESP 18; TEMP 98.6; O2SAT 98
[2016-10-13] MEDS: SODIUM CHLORIDE 0.9% FLUSH 10 ML FLUSH IV FLUSH PRN ×2 (14:12→18:00)
[2016-10-13 15:06] VITALS: BP 121/54; PULSE 72; RESP 18; TEMP 98.3; O2SAT 100
[2016-10-13] MEDS: LACTATED RINGER'S 1000 ML INJ 1,000 ML IV SCH (18:00)
--- NOTE | 2016-10-13 19:01 | HHI.PR ---
Subjective Subjective Notes Awaiting biopsy Objective Vitals/I&O Vital Signs Date Time Temp Pulse Resp B/P (MAP) Pulse Ox O2 Delivery O2 Flow Rate FiO2 10/13/16 15:06 98.3 72 18 121/54 (76) 100 10/11/16 12:51 Room Air Labs Laboratory Tests Test 10/12/16 19:42 10/12/16 19:57 HIV (1&2) Antibody NEGATIVE Date/Time Source Procedure Growth Status 10/11/16 14:10 Blood Peripheral Aerobic Blood Culture - Preliminary NO GROWTH IN 2 DAYS Resulted 10/11/16 14:10 Blood Peripheral Anaerobic Blood Culture - Preliminary NO GROWTH IN 2 DAYS Resulted Abdomen: Non-distended A/P Assessment and Plan Right groin adenopathy For biopsy tomorrow. Yoni Flowers MD Oct 13, 2016 19:01
[2016-10-13 19:39] VITALS: BP 120/75; PULSE 73; RESP 20; TEMP 98.2; O2SAT 99
[2016-10-13] MEDS ORDERED: TEMAZEPAM 15 MG CAP PO SCH (21:00)
[2016-10-13 23:19] VITALS: BP 105/55; PULSE 54; RESP 18; TEMP 98.1; O2SAT 99
[2016-10-14] MEDS: LACTATED RINGER'S 1000 ML INJ 1,000 ML IV SCH ×3 (02:58→17:45)
[2016-10-14 03:42] VITALS: BP 103/71; PULSE 56; RESP 18; TEMP 97.8; O2SAT 100
[2016-10-14] MEDS: ONDANSETRON HCL 4 MG/2 ML VIAL IVP PRN ×2 (03:52→10:03)
[2016-10-14] MEDS: ACETAMINOPHEN/HYDROcodone 325 MG/10 MG TAB PO PRN ×2 (03:53→18:17)
[2016-10-14 04:33] VITALS: BP 117/62; PULSE 65; RESP 16; TEMP 97.6; O2SAT 95
[2016-10-14] MEDS: ATENOLOL 50 MG TAB PO SCH (08:39)
[2016-10-14] MEDS: DOCUSATE SODIUM 50 MG/SENNA 8.6 MG TAB PO SCH (08:39)
[2016-10-14] MEDS: SODIUM CHLORIDE 0.9% FLUSH 10 ML FLUSH IV FLUSH SCH (08:39)
[2016-10-14] MEDS: MULTIVITAMIN TAB PO SCH (08:40)
[2016-10-14 09:12] VITALS: BP 133/86; PULSE 61; RESP 18; TEMP 98; O2SAT 100
[2016-10-14] MEDS: MORPHINE SULFATE 4 MG/ML INJ IV PUSH PRN (10:03)
[2016-10-14] MEDS: SODIUM CHLORIDE 0.9% FLUSH 10 ML FLUSH IV FLUSH PRN (10:03)
--- NOTE | 2016-10-14 10:44 | HHI.PR ---
Subjective Remarks Follow-up for lymphadenopathy. The patient continues to complain of intermittent pain in her right inguinal area which she had swelling improved with biopsy today. Planning for inguinal node biopsy today. She is having at home afterwards. She's been eating well. Reports normal bowel movements. Denies any fevers or chills. She understands she needs to follow-up with oncology as outpatient. Objective Vitals Vital Signs Date Time Temp Pulse Resp B/P (MAP) Pulse Ox O2 Delivery O2 Flow Rate FiO2 10/14/16 09:12 98.0 61 18 133/86 (102) 100 10/14/16 04:57 18 10/14/16 04:33 97.6 65 16 117/62 (80) 95 10/14/16 03:42 97.8 56 18 103/71 (82) 100 10/13/16 23:19 98.1 54 18 105/55 (72) 99 10/13/16 19:39 98.2 73 20 120/75 (90) 99 10/13/16 15:06 98.3 72 18 121/54 (76) 100 10/13/16 11:16 98.6 65 18 121/74 (90) 98 I/O 10/13/16 10/13/16 10/13/16 10/14/16 10/14/16 10/14/16 07:00 15:00 23:00 07:00 15:00 23:00 Intake Total 1000 ml 950 ml Balance 1000 ml 950 ml Intake IV Total 1000 ml 950 ml Result Diagram: 10/12/16 0435 10/12/16 0435 Objective Remarks GENERAL: Well-developed well-nourished. In no acute distress. SKIN: Warm and dry. Palpable right groin lymphadenopathy. HEENT: Normocephalic. Pupils equal and round. Mucous membranes pink and moist. CARDIOVASCULAR: Regular rate and rhythm. No murmur appreciated. RESPIRATORY: No accessory muscle use. Clear to auscultation. Breath sounds equal bilaterally. GASTROINTESTINAL: Abdomen soft, non-tender, nondistended. Bowel sounds x4. MUSCULOSKELETAL: No obvious deformities. No clubbing or cyanosis. No edema. NEUROLOGICAL: Awake and alert. No focal neurological deficits. Moves upper and lower extremities spontaneously. Normal speech. PSYCHIATRIC: Appropriate mood and affect; insight and judgment normal. A/P Problem List: (1) Diffuse lymphadenopathy ICD Code: R59.1 - Generalized enlarged lymph nodes Status: Acute Assessment and Plan 40-year-old female with history of hypertension, endometriosis with multiple abdominal surgeries, chronic back pain, presents with a 2week history of worsening fatigue, weakness, poor appetite, shortness of breath, nausea, and diaphoresis. Widespread Lymphadenopathy: concern for Lymphoma. Patient with multiple constitutional symptoms as above. Reviewed: Abdominal CT 10/03 showed prominent retroperitoneal and right pelvic sidewall adenopathy; lymphoma should be excluded. Chest CT 10/04 showed right lung nodule; indeterminate lymph nodes in mediastinum and left supraclavicular area could be reactive, however metastatic disease is difficult to exclude. -ER MD discussed with on-call oncologist Dr. Torres, recommended observation admission for evaluation by Dr. Brown and inpatient biopsy -Supportive treatment with antiemetics and pain control with [place] prn and IV morphine prn breakthrough pain -Consulted oncology, seen by Dr. Brown, appreciate recommendations -Consulted general surgeon for biopsy, plans for inguinal lymph node biopsy today Hypertension: chronic, stable -continue patient's Atenolol 50mg bid -monitor BP, adjust antihypertensives as needed Insomnia: patient has hx of insomnia, intermittently on Restoril or Ambien at home. Requesting medication -Restoril at bedtime All other medical conditions stable, continue home medications as appropriate. DVT Prophylaxis: teds/SCDs; avoid chemoprophylaxis with upcoming biopsy Discharge Planning Possible discharge planning for outpatient follow-up after surgery today. Vladimir Puentes Oct 14, 2016 10:44
--- NOTE | 2016-10-14 10:45 | PD.ONC.PN ---
Subjective Subjective Remarks Ms. Ram is doing well. She will go to the OR today at 12:30 for excision of lymph node. Objective Data Date Time Temp Pulse Resp B/P (MAP) Pulse Ox O2 Delivery O2 Flow Rate FiO2 10/14/16 09:12 98.0 61 18 133/86 (102) 100 10/14/16 04:57 18 10/14/16 04:33 97.6 65 16 117/62 (80) 95 10/14/16 03:42 97.8 56 18 103/71 (82) 100 10/13/16 23:19 98.1 54 18 105/55 (72) 99 10/13/16 19:39 98.2 73 20 120/75 (90) 99 10/13/16 15:06 98.3 72 18 121/54 (76) 100 10/13/16 11:16 98.6 65 18 121/74 (90) 98 10/14/16 10/14/16 10/14/16 07:00 15:00 23:00 Intake Total 1000 ml 950 ml Balance 1000 ml 950 ml Result Diagram: 10/12/16 0435 10/12/16 0435 Culture Results Microbiology Date/Time Source Procedure Growth Status 10/11/16 14:10 Blood Peripheral Aerobic Blood Culture - Preliminary NO GROWTH IN 2 DAYS Resulted 10/11/16 14:10 Blood Peripheral Anaerobic Blood Culture - Preliminary NO GROWTH IN 2 DAYS Resulted 10/11/16 14:10 Blood Peripheral Aerobic Blood Culture - Preliminary NO GROWTH IN 2 DAYS Resulted 10/11/16 14:10 Blood Peripheral Anaerobic Blood Culture - Preliminary NO GROWTH IN 2 DAYS Resulted Administered Medications Medications (Trade) Dose Ordered Sig/Blake Route PRN Reason Start Time Stop Time Status Last Admin Dose Admin Sodium Chloride (NS Flush) 2 ml UNSCH PRN IV FLUSH FLUSH AFTER USING IV ACCESS 10/11/16 16:00 10/14/16 10:03 Sodium Chloride (NS Flush) 2 ml BID IV FLUSH 10/11/16 21:00 10/13/16 08:31 Ondansetron HCl (Zofran Inj) 4 mg Q6H PRN IVP NAUSEA OR VOMITING 10/11/16 16:00 10/14/16 10:03 Senna/Docusate Sodium (Heather-Colace) 1 tab BID PO 10/11/16 21:00 10/14/16 08:39 Atenolol (Tenormin) 50 mg BID PO 10/11/16 21:00 10/14/16 08:39 Acetaminophen/ Hydrocodone Bitart ([place] 5-325 Mg) 1 tab Q6H PRN PO PAIN SCALE 3-6 10/11/16 17:00 10/11/16 17:58 Acetaminophen/ Hydrocodone Bitart ([place] 10-325 Mg) 1 tab Q4H PRN PO PAIN SCALE 7 TO 10 10/11/16 20:00 10/14/16 03:53 Morphine Sulfate (Morphine Inj) 2 mg Q4H PRN IV PUSH severe breakthrough pain 10/12/16 10:45 10/14/16 10:03 Temazepam (Restoril) 15 mg HS PO 10/13/16 21:00 10/13/16 21:11 Lactated Ringer's 1,000 ml @ 125 mls/hr Q8H IV 10/13/16 17:45 10/14/16 10:02 Objective Remarks GENERAL: Well-nourished, well-developed patient. SKIN: No rashes, bruising HEAD: Normocephalic. EYES: No scleral icterus. RESPIRATORY: No accessory muscle use. GASTROINTESTINAL: Abdomen soft, non-tender, nondistended. NEUROLOGICAL: No obvious focal deficit. Awake, alert, and oriented x3. PSYCHIATRIC: Appropriate mood and affect; insight and judgment normal. Assessment/Plan Assessment 1. Prominent lymphadenopathy: Will follow up pathology from lymph node excision to be performed today. HIV negative. B2-microglobulin and PASTOR pending. Afebrile during hospital stay. Sonali Brown MD Oct 14, 2016 10:45
[2016-10-14 10:50] VITALS: BP 121/74; PULSE 62; RESP 16; TEMP 99.2; O2SAT 100
[2016-10-14] MEDS ORDERED: PROPOFOL 200 MG/20 ML AMP IV ONE (12:00)
[2016-10-14] MEDS ORDERED: ONDANSETRON HCL 4 MG/2 ML VIAL IV PUSH ONE (12:00)
[2016-10-14] MEDS ORDERED: ACETAMINOPHEN 1000 MG/100 ML 100 ML IV ONE (12:50)
[2016-10-14] MEDS ORDERED: DEXAMETHASONE SOD PHOS 4 MG/ML VIAL ONE (12:51)
[2016-10-14] MEDS ORDERED: MIDAZOLAM HCL 2 MG/2 ML VIAL ONE (12:51)
[2016-10-14] MEDS ORDERED: FAMOTIDINE 20 MG/2 ML VIAL ONE ×2 (12:52)
[2016-10-14] MEDS ORDERED: ceFAZolin 2 GM PREMIX 50 ML ONE (13:01)
[2016-10-14] MEDS ORDERED: LIDOCAINE HCL 1% 50 ML VIAL ONE (13:01)
[2016-10-14] MEDS ORDERED: *morphine SULFATE 8 MG/ML PERIprocedure ONLY ONE ×2 (14:32→15:13)
[2016-10-14] MEDS ORDERED: *ONDANSETRON 4 MG VIAL PERIprocedural Use ONLY ONE (14:32)
[2016-10-14] MEDS ORDERED: *PROMETHAZINE 25 MG/ML VIAL PERIprocedural use ONLY ONE (15:18)
[2016-10-14] MEDS ORDERED: HYDR-3583 PO (15:25)
--- NOTE | 2016-10-14 16:04 | HHI.PR ---
cc: Yoni Flowers MD Immediate Post Op Note Procedure Date: Oct 14, 2016 Pre Op Diagnosis: right inguinal adenopathy Post Op Diagnosis: Same Surgeon: Yoni Flowers It Software Engineer(s): Chloe Connolly CFA Procedure: Right inguinal lymph node biopsy Complications: None Specimen(s) removed: Right groin tissue and nodes to pathology Estimated blood loss: <10 ml Anesthesia: LMA Drains: None IVF (400 ml) Patient to: PACU Patient Condition: Good Date/Time of Procedure: SEE SURGICAL CARE RECORD Yoni Flowers MD Oct 14, 2016 16:04
--- NOTE | 2016-10-14 16:22 | HHI.DS ---
Discharge Summary Admission Date Oct 11, 2016 at 15:52 Discharge Date: Oct 14, 2016 Admitting Diagnosis lymphadenopathy (1) Diffuse lymphadenopathy ICD Code: R59.1 - Generalized enlarged lymph nodes Diagnosis: Principal Status: Acute Procedures Right inguinal lymph node biopsy 10/14/16 Brief History - From Admission 40-year-old female with history of hypertension, endometriosis with multiple abdominal surgeries, chronic back pain, presents with a 2week history of worsening fatigue, weakness, poor appetite, shortness of breath, nausea, and diaphoresis. She reports diffuse myalgias, chills, and sweats. She feels as though she has the flu. The patient has been taking ibuprofen with minimal relief. Any minimal exertion causes extreme fatigue. She has also lost weight, 217lbs to 206lbs, over the past month. She also reports a diffuse headache, not consistent with her previous migraines. She was diagnosed with pneumonia on 10/04 , recently completed a Z-Phil. She recently had a lumpectomy of the left breast by Dr. Mares in [place], [place], and was told it was benign fibrocystic. The patient has now noticed another lump on the right breast. She also reports an abnormal swelling on the right proximal medial thigh which is new for her and she has some pressure around the right groin. She denies any chest pain, palpitations, edema. She denies any other medical complaints at this time. CBC/BMP: 10/12/16 0435 10/12/16 0435 Significant Findings Laboratory Tests Test 10/12/16 04:35 10/12/16 10:30 10/12/16 19:42 10/12/16 19:57 Monocytes (%) (Auto) 8.7 % (0.0-8.0) Eosinophils (%) (Auto) 5.6 % (0.0-4.0) PE at Discharge GENERAL: Well-developed well-nourished. In no acute distress. SKIN: Warm and dry. Palpable right groin lymphadenopathy. HEENT: Normocephalic. Pupils equal and round. Mucous membranes pink and moist. CARDIOVASCULAR: Regular rate and rhythm. No murmur appreciated. RESPIRATORY: No accessory muscle use. Clear to auscultation. Breath sounds equal bilaterally. GASTROINTESTINAL: Abdomen soft, non-tender, nondistended. Bowel sounds x4. MUSCULOSKELETAL: No obvious deformities. No clubbing or cyanosis. No edema. NEUROLOGICAL: Awake and alert. No focal neurological deficits. Moves upper and lower extremities spontaneously. Normal speech. PSYCHIATRIC: Appropriate mood and affect; insight and judgment normal. Pt update on day of discharge Patient had uncomplicated lymph node biopsy with general surgery today. Cleared by general surgery for discharge and outpatient follow-up with them in oncology. Hospital Course 40-year-old female with history of hypertension, endometriosis with multiple abdominal surgeries, chronic back pain, presents with a 2week history of worsening fatigue, weakness, poor appetite, shortness of breath, nausea, and diaphoresis. Widespread Lymphadenopathy: concern for Lymphoma. Patient with multiple constitutional symptoms as above. Imaging: Abdominal CT 10/03 showed prominent retroperitoneal and right pelvic sidewall adenopathy; lymphoma should be excluded. Chest CT 10/04 showed right lung nodule; indeterminate lymph nodes in mediastinum and left supraclavicular area could be reactive, however metastatic disease is difficult to exclude. -Pain control with [place] prn -Consulted oncology, seen by Dr. Brown, recommended lymph node biopsy and outpatient follow-up -Consulted general surgery, performed right inguinal lymph node biopsy 10/14, cleared for discharge and outpatient follow-up Hypertension: chronic, stable -continue patient's Atenolol 50mg bid Pt Condition on Discharge: Stable Discharge Disposition: Discharge Home Discharge Time: > 30 minutes Discharge Instructions DIET: Follow Instructions for: Heart Healthy Diet Activities you can perform: Regular-No Restrictions Follow up Referrals: Oncology/Hematology - 10 Days with Sonali Brown MD PCP Follow-up - 1 Week with Aubrey Herring DO Surgical - 1 Week with Yoni Flowers MD New Medications: Hydrocodone-Acetaminophen (Hydrocodone-Acetaminophen) 10-325 mg Tab 1 TAB PO Q6HR PRN for PAIN SCALE 7 TO 10, #12 TAB Continued Medications: Atenolol (Atenolol) 100 Mg Tab 50 MG PO BID for Blood Pressure Management, #30 TAB 0 Refills Fish Oil-Cholecalciferol ([place]-3 Fish Oil/Vitamin) 1,000-1,000 Mg Cap 1 CAP PO DAILY for Nutritional Supplement, CAP 0 Refills Ibuprofen (Ibuprofen) 800 Mg Tab 800 MG PO BID PRN for PAIN SCALE 1 TO 10, TAB 0 Refills Multiple Vitamin (Multiple Vitamin) 1 Tab 1 TAB PO DAILY for Nutritional Supplement, TAB 0 Refills Turmeric (Curcuma Longa) (Turmeric) 500 Mg Cap 1 CAP PO BID for PAIN 1 TO 10 AND/OR AGITATION Discontinued Medications: Hydrocodone-Acetaminophen ([place]) 5-325 mg Tab 1 TAB PO Q6H PRN for PAIN, #15 TAB 0 Refills Vladimir Puentes Oct 14, 2016 16:22
[2016-10-14 16:46] VITALS: BP 127/73; PULSE 83; RESP 18; TEMP 98.5; O2SAT 98
--- NOTE | 2016-10-20 08:53 | MP ---
cc: CHRIS ZUNIGA M.D., TABITHA N. MD DATE OF SURGERY 10/14/2016 PROCEDURE Right inguinal lymph node biopsy x 2. PREOPERATIVE DIAGNOSIS Inguinal adenopathy and retroperitoneal adenopathy with malaise and fatigue. POSTOPERATIVE DIAGNOSIS Inguinal adenopathy and retroperitoneal adenopathy with malaise and fatigue. ANESTHESIA LMA. SURGEON MD Lionel ESTIMATED BLOOD LOSS Less than 10 mL. FLUIDS 400 mL crystalloid. COMPLICATIONS None. DRAINS None. SPECIMEN Lymph nodes to pathology. PROCEDURE IN DETAIL The patient was seen in the holding area and the right groin marked by the undersigned and confirmed by the patient. She was taken to the operating room and placed on the operating table in the supine position. After laryngeal mask anesthesia was instituted the right groin was prepped and draped in the field. Time-out was taken confirming the correct patient site and procedure to be performed. Skin and subcutaneous tissue was infiltrated with local anesthetic and an incision made in the right groin. Dissection was carried down to the lymphatic tissue. This was excised with both sharp dissection and electrocautery. When this had been completed the wound was closed in two layers after confirming hemostasis. 3-0 Vicryl and 5-0 PDS was used to close the wound. The wound was dressed with Steri-Strips. The patient was extubated and taken back to the recovery room in stable condition. She tolerated the procedure well. MD SUSANA Crum/SSB /7:53 PM /8:46 AM
== END 2016-10-14 18:48 | disposition home or self-care (01) ==
LOC: NEPC 12:47 → NEDA 15:52 → NEPGCP 17:30
PROVIDERS: ADMIT Family Medicine; ATTEND Family Medicine
DX: R59.1 Generalized enlarged lymph nodes (principal); D64.9 Anemia, unspecified; I10 Essential (primary) hypertension; M06.9 Rheumatoid arthritis, unspecified; M54.9 Dorsalgia, unspecified; G89.29 Other chronic pain; R51 Headache; R53.1 Weakness; R11.0 Nausea; R06.02 Shortness of breath; R91.1 Solitary pulmonary nodule; Z01.818 Encounter for other preprocedural examination
CPT/HCPCS: 00320; 38500; 80048; 80053; 81001; 82232; 83615; 85025; 85610; 85652; 85730; 86038; 86703; 87040; 88305; 88312; 96361; 96374; 96376; 99285; G0378; J0131; J0690; J1100; J2250; J2270; J2405; J2550; J3010; J7120

== ENCOUNTER 2016-10-18 15:27 | Emergency (ER) | payer MEDICAID ==
[~2016-10-18] VITALS: Ht 154.9 cm; Wt 92.0 kg
[~2016-10-18 15:27] MED LIST changes: -CEPH-460 PO; -HYDR-3366 PO; +HYDR-3583 PO
[2016-10-18 15:35] VITALS: BP 123/78; PULSE 80; RESP 16; TEMP 98.6; O2SAT 100
--- NOTE | 2016-10-18 15:57 | PD ---
HPI Chief Complaint: Skin Problem Time Seen by Provider: 15:43 Travel History International Travel<30 days: No Contact w/Intl Traveler<30days: No Traveled to known affect area: No History of Present Illness HPI The patient was seen and examined in the presence of the nurse. This patient reports that she's having pain in her with a biopsy site. She ran out of her pain pills. She says that her surgeon advised her to come to the ER if she needed to be evaluated. Denies fever or injury. No bleeding or drainage. Symptoms severity is reported as moderate PFSH Past Medical History Hx Anticoagulant Therapy: No Anemia: Yes (PAST) Arthritis: Yes (RA) Asthma: No Blood Disorders: No Heart Rhythm Problems: Yes (REPORTS SINUS TACHYCARDIA) Cancer: No Cardiovascular Problems: Yes (htn ) High Cholesterol: No Chemotherapy: No Chest Pain: No (REPORTS CHEST PRESSURE ) Congestive Heart Failure: No COPD: No Diabetes: No Diminished Hearing: No Endocrine: No Genitourinary: No (REPORTS URINARY FREQUENCY) Herniated Disk: Yes (two) Hypertension: Yes Immune Disorder: No Kidney Stones: Yes Musculoskeletal: No (REPORTS MUSCLE ACHES AT NIGHT) Neurologic: No Psychiatric: No Reproductive: Yes (ENDOMETRIOSIS) Respiratory: No Immunizations Current: No Migraines: Yes Radiation Therapy: No Sleep Apnea: No Thyroid Disease: No ?: Not Menopausal: Yes : 3 Para: 3 Ovarian Cysts: Yes Tubal Ligation: Yes Past Surgical History Abdominal Surgery: Yes (HAD LAP 07/03/06) Appendectomy: Yes Body Medical Devices: DX WITH TUMOR RIGHT OVARY Section: Yes (X3) Cholecystectomy: Yes Gynecologic Surgery: Yes (, LAPAROSCOPIES) Hysterectomy: Yes Other Surgery: Yes (LEFT BREAST LUMPECTOMY) Social History Alcohol Use: No Tobacco Use: No (smoked cigs for 3 yrs) Substance Use: No Allergies-Medications (Allergen,Severity, Reaction): Coded Allergies: benzoin (Verified Allergy, Severe, rash, 10/18/16) ketorolac (Verified Allergy, Severe, RASH, 10/18/16) storax (Verified Allergy, Severe, rash, 10/18/16) jorge balsam (Verified Allergy, Severe, rash, 10/18/16) metoclopramide (Verified Adverse Reaction, Severe, AGGITATION/INCREASED HR , 10/18/16) prochlorperazine (Verified Adverse Reaction, Severe, AGGITATION/INCREASED HR, 10/18/16) Reported Meds & Prescriptions Reported Meds & Active Scripts Active Hydrocodone-Acetaminophen 10-325 mg Tab 1 Tab PO Q6HR PRN Atenolol 100 Mg Tab 50 Mg PO BID Reported Turmeric (Turmeric (Curcuma Longa)) 500 Mg Cap 1 Cap PO BID [place]-3 Fish Oil/Vitamin (Fish Oil-Cholecalciferol) 1,000-1,000 Mg Cap 1 Cap PO DAILY Multiple Vitamin 1 Tab 1 Tab PO DAILY Ibuprofen 800 Mg Tab 800 Mg PO BID PRN Review of Systems General / Constitutional: No: Fever HENT: No: Headaches Cardiovascular: No: Chest Pain or Discomfort Physical Exam Narrative GASTROINTESTINAL: Abdomen soft, non-tender, nondistended. Positive bowel sounds. No hepato-splenomegaly, or palpable masses. No guarding. SKIN: Focused skin assessment reveals no rash or ulcers. Skin is warm and dry. Palpation shows no induration or nodules. Groin: Incision in the right groin has no evidence of dehiscence or infection. No cellulitis surrounding. Data Data Last Documented VS Vital Signs Date Time Temp Pulse Resp B/P (MAP) Pulse Ox O2 Delivery O2 Flow Rate FiO2 10/18/16 15:35 98.6 80 16 123/78 (93) 100 MDM Medical Decision Making Medical Screen Exam Complete: Yes Emergency Medical Condition: Yes Medical Record Reviewed: Yes Differential Diagnosis Postoperative pain, narcotic seeking behavior, pain management Narrative Course I have reviewed the patient's electronic medical record.Reviewed her discharge summary from 4 days ago. Reviewed her pathology of the node report I'm going to write her 10 pain pills for her postoperative pain Diagnosis Primary Impression: Postoperative pain Additional Instructions: The patient was advised to follow up with their physician and return if they worsen. The patient was warned about potential sedation for the medications they will receive on prescription. Med/Other Pt SpecificInfo: Prescription(s) given Disposition: DISCHARGE HOME Condition: Stable Yaya Avendaño MD Oct 18, 2016 15:57
[2016-10-18] MEDS ORDERED: PERC5TAB12 PO (15:58)
== END 2016-10-18 16:15 | disposition home or self-care (01) ==
LOC: PHED 15:27
DX: G89.18 Other acute postprocedural pain (principal)
CPT/HCPCS: 99283

== ENCOUNTER 2017-02-17 13:59 | Emergency (ER) | payer MEDICAID ==
[~2017-02-17] VITALS: Ht 160 cm; Wt 95.5 kg
[~2017-02-17 13:59] MED LIST changes: -HYDR-3583 PO; -IBUP800T23 PO; +PERC5TAB12 PO
[2017-02-17 14:04] VITALS: BP 148/65; PULSE 76; RESP 18; TEMP 98.6; O2SAT 100
[2017-02-17] MEDS ORDERED: TIOT1AER2 INH (14:27)
[2017-02-17] MEDS ORDERED: ALBUAER3 INH (14:27)
[2017-02-17] MEDS ORDERED: ZOFR4TAB PO (14:27)
[2017-02-17] MEDS ORDERED: HYDR-3516 PO (14:27)
--- NOTE | 2017-02-17 14:50 | PD ---
HPI Chief Complaint: Respiratory Symptoms Time Seen by Provider: 14:34 Travel History International Travel<30 days: No Contact w/Intl Traveler<30days: No Traveled to known affect area: No History of Present Illness HPI This 41-year-old female is is not feeling well today she's had some left flank pain. She's had some nausea and abdominal pain. She has been evaluated over the last few months for lymphadenopathy. She has had thoracic and abdominal lymphadenopathy. 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 Etiology for her lymphadenopathy has not been determined. She is seeing Dr. Velasquez and he has ordered a CT of her chest for this afternoon at 5:00. He is apparently complaining and doing a bronchoscopy in the near future She is on Zofran for intermittent nausea. She has been seeing multiple different physicians for evaluation of this lymphadenopathy. She does say that her family had a severe case of mononucleosis that affected everybody. PFSH Past Medical History Hx Anticoagulant Therapy: No Anemia: Yes (PAST) Arthritis: Yes (RA) Asthma: No Autoimmune Disease: Yes (POSSIBLE CHRONIC ACUTE EVB) Blood Disorders: No Heart Rhythm Problems: Yes (REPORTS SINUS TACHYCARDIA) Cancer: Yes Cardiovascular Problems: Yes (htn ) High Cholesterol: No Chemotherapy: No Chest Pain: Yes (REPORTS CHEST PRESSURE ) Congestive Heart Failure: No COPD: No Diabetes: No Diminished Hearing: No Endocrine: No Genitourinary: Yes (REPORTS URINARY FREQUENCY) Herniated Disk: Yes (two) Hypertension: Yes Immune Disorder: No Implanted Vascular Access Dvce: No Kidney Stones: Yes Medical other: Yes (WERGNERS DISEASE) Musculoskeletal: Yes (REPORTS MUSCLE ACHES AT NIGHT) Neurologic: No Psychiatric: No Reproductive: Yes (ENDOMETRIOSIS) Respiratory: Yes (ASTHMA) Immunizations Current: No Migraines: Yes Radiation Therapy: No Sleep Apnea: No Thyroid Disease: No Tetanus Vaccination: < 5 Years Influenza Vaccination: No ?: Not Menopausal: Yes : 3 Para: 3 Ovarian Cysts: Yes Tubal Ligation: Yes Past Surgical History Abdominal Surgery: Yes (HAD LAP 07/03/06) Appendectomy: Yes Body Medical Devices: DX WITH TUMOR RIGHT OVARY Section: Yes (X3) Cholecystectomy: Yes Gynecologic Surgery: Yes (, LAPAROSCOPIES) Hysterectomy: Yes Other Surgery: Yes (LEFT BREAST LUMPECTOMY lymph node bxs) Social History Alcohol Use: No Tobacco Use: No (smoked cigs for 3 yrs) Substance Use: No Allergies-Medications (Allergen,Severity, Reaction): Coded Allergies: benzoin (Verified Allergy, Severe, rash, 02/17/17) ketorolac (Verified Allergy, Severe, RASH, 02/17/17) storax (Verified Allergy, Severe, rash, 02/17/17) jorge balsam (Verified Allergy, Severe, rash, 02/17/17) metoclopramide (Verified Adverse Reaction, Severe, AGGITATION/INCREASED HR , 02/17/17) prochlorperazine (Verified Adverse Reaction, Severe, AGGITATION/INCREASED HR, 02/17/17) Reported Meds & Prescriptions Reported Meds & Active Scripts Active Atenolol 100 Mg Tab 50 Mg PO BID Reported Hydrocodone-Acetaminophen 5-325 mg Tab 1 Tab PO Q6H PRN Zofran (Ondansetron HCl) 4 Mg Tab 4 Mg PO Q6HR PRN Proair Hfa 8.5 GM Inh (Albuterol Sulfate) 90 Mcg/Act Aer 1 Puff INH Q4H PRN 108 mcg/actuation Spiriva Respimat Inh (Tiotropium Inh) 1.25 Mcg/Act Aero 2 Puff INH DAILY 1.25 mcg = 1 inhalation Review of Systems General / Constitutional: No: Fever, Chills Eyes: No: Diploplia, Blurred Vision HENT: No: Headaches, Vertigo Cardiovascular: No: Chest Pain or Discomfort Respiratory: Positive: Shortness of Breath Gastrointestinal: Positive: Nausea, Abdominal Pain Genitourinary: No: Dysuria Musculoskeletal: No: Myalgias Skin: No Rash, No Itching Neurologic: No: Weakness, Dizziness Hematologic/Lymphatic: No: Easy Bruising Physical Exam Narrative GENERAL: Well-developed female SKIN: Focused skin assessment warm/dry. HEAD: Atraumatic. Normocephalic. EYES: Pupils equal and round. No scleral icterus. No injection or drainage. ENT: No nasal bleeding or discharge. Mucous membranes pink and moist. NECK: Trachea midline. No JVD. CARDIOVASCULAR: Regular rate and rhythm. No murmur appreciated. RESPIRATORY: No accessory muscle use. Clear to auscultation. Breath sounds equal bilaterally. GASTROINTESTINAL: Abdomen soft, non-tender, nondistended. Hepatic and splenic margins not palpable. MUSCULOSKELETAL: No obvious deformities. No clubbing. No cyanosis. No edema. NEUROLOGICAL: Awake and alert. No obvious cranial nerve deficits. Motor grossly within normal limits. Normal speech. PSYCHIATRIC: Appropriate mood and affect; insight and judgment normal. Data Data Last Documented VS Vital Signs Date Time Temp Pulse Resp B/P (MAP) Pulse Ox O2 Delivery O2 Flow Rate FiO2 02/17/17 14:17 100 Room Air 02/17/17 14:04 98.6 76 18 148/65 (92) Orders Orders Complete Blood Count With Diff (02/17/17 14:48) Comprehensive Metabolic Panel (02/17/17 14:48) Urinalysis - C+S If Indicated (02/17/17 14:48) Ondansetron Inj (Zofran Inj) (02/17/17 16:00) Labs Laboratory Tests Test 02/17/17 15:20 White Blood Count 4.8 TH/MM3 Red Blood Count 4.31 MIL/MM3 Hemoglobin 11.9 GM/DL Hematocrit 36.7 % Mean Corpuscular Volume 85.2 FL Mean Corpuscular Hemoglobin 27.8 PG Mean Corpuscular Hemoglobin Concent 32.6 % Red Cell Distribution Width 12.2 % Platelet Count 241 TH/MM3 Mean Platelet Volume 7.6 FL Neutrophils (%) (Auto) 66.9 % Lymphocytes (%) (Auto) 21.8 % Monocytes (%) (Auto) 7.8 % Eosinophils (%) (Auto) 2.8 % Basophils (%) (Auto) 0.7 % Neutrophils # (Auto) 3.3 TH/MM3 Lymphocytes # (Auto) 1.0 TH/MM3 Monocytes # (Auto) 0.4 TH/MM3 Eosinophils # (Auto) 0.1 TH/MM3 Basophils # (Auto) 0.0 TH/MM3 CBC Comment DIFF FINAL Differential Comment Urine Color YELLOW Urine Turbidity CLOUDY Urine pH 7.0 Urine Specific [place] 1.024 Urine Protein TRACE mg/dL Urine Glucose (UA) NEG mg/dL Urine Ketones 15 mg/dL Urine Occult Blood LARGE Urine Nitrite NEG Urine Bilirubin NEG Urine Leukocyte Esterase NEG Urine RBC 50-99 /hpf Urine WBC 3-5 /hpf Urine Squamous Epithelial Cells 0-5 /hpf Urine Calcium Oxalate Crystals FEW /hpf Microscopic Urinalysis Comment CULT NOT INDICATED Blood Urea Nitrogen 8 MG/DL Creatinine 0.58 MG/DL Random Glucose 86 MG/DL Total Protein 7.6 GM/DL Albumin 3.7 GM/DL Calcium Level 8.7 MG/DL Alkaline Phosphatase 95 U/L Aspartate Amino Transf (AST/SGOT) 21 U/L Alanine Aminotransferase (ALT/SGPT) 25 U/L Total Bilirubin 0.2 MG/DL Sodium Level 142 MEQ/L Potassium Level 4.0 MEQ/L Chloride Level 107 MEQ/L Carbon Dioxide Level 29.3 MEQ/L Anion Gap 6 MEQ/L Estimat Glomerular Filtration Rate 116 ML/MIN MDM Medical Decision Making Medical Screen Exam Complete: Yes Emergency Medical Condition: Yes Medical Record Reviewed: Yes Differential Diagnosis Differential includes musculoskeletal pain, renal colic, pyelonephritis Narrative Course Urinalysis shows 50-99 red cells. Urine secondary to kidney stone though she did have a CT of the abdomen and pelvis a couple months ago which was negative for stone. He has had multiple CTs I'm reluctant to do one now especially if she is going for a CT of her thorax now. I will prescribe some Lortab for her to use for her pain. She is stable for discharge Diagnosis Primary Impression: Renal colic on left side Scripts Hydrocodone-Acetaminophen (Hydrocodone-Acetaminophen) 10-325 mg Tab 1 TAB PO Q4H Y for PAIN, #20 TAB 0 Refills Prov: Guillermo Uriostegui MD 02/17/17 Disposition: 01 DISCHARGE HOME Condition: Stable Guillermo Uriostegui MD Feb 17, 2017 14:50
[2017-02-17 15:33] LABS: AUTOMATED NEUTROPHIL # 3.3 TH/MM3 (1.8-7.7); BASOPHIL % 0.7 % (0.0-2.0); BILIRUBIN, URINE NEG (NEG); BLOOD, URINE LARGE (NEG); EOSINOPHIL # 0.1 TH/MM3 (0-0.4); EOSINOPHIL % 2.8 % (0.0-4.0); GLUCOSE,URINE NEG (NEG); HEMATOCRIT 36.7 % (35.0-46.0); HEMOGLOBIN 11.9 GM/DL (11.6-15.3); KETONE, URINE 15 mg/dL (NEG); LYMPH % 21.8 % (9.0-44.0); MEAN CELL VOLUME 85.2 FL (80.0-100.0); MEAN CORPUSCULAR HEMOGLOBIN 27.8 PG (27.0-34.0); MEAN CORPUSCULAR HGB CONC 32.6 % (32.0-36.0); MEAN PLATELET VOLUME 7.6 FL (7.0-11.0); MONO % 7.8 % (0.0-8.0); MONOCYTE # 0.4 TH/MM3 (0-0.9); NEUT % 66.9 % (16.0-70.0); NITRITE,URINE NEG (NEG); PLATELET COUNT 241 TH/MM3 (150-450); RED BLOOD COUNT 4.31 MIL/MM3 (4.00-5.30); RED CELL DISTRIBUTION WIDTH 12.2 % (11.6-17.2); URINE LEUKOCYTE ESTERASE NEG (NEG); WHITE BLOOD COUNT 4.8 TH/MM3 (4.0-11.0)
[2017-02-17 15:39] LABS: CHLORIDE 107 MEQ/L (98-107); SODIUM (NA) 142 MEQ/L (136-145)
[2017-02-17 15:42] LABS: CALCIUM 8.7 MG/DL (8.5-10.1)
[2017-02-17 15:43] LABS: ALBUMIN 3.7 GM/DL (3.4-5.0); BICARBONATE 29.3 MEQ/L (21.0-32.0); BLOOD UREA NITROGEN 8 MG/DL (7-18); GLUCOSE,RANDOM 86 MG/DL (74-106)
[2017-02-17 15:46] LABS: ALT (GPT) 25 U/L (10-53); AST (GOT) 21 U/L (15-37); CREATININE 0.58 MG/DL (0.50-1.00); GLOMERULAR FILTRATION RATE 116 ML/MIN (>89)
[2017-02-17 15:47] LABS: TOTAL BILIRUBIN ADULT 0.2 MG/DL (0.2-1.0); TOTAL PROTEIN 7.6 GM/DL (6.4-8.2)
[2017-02-17 15:49] LABS: ALKALINE PHOSPHATASE 95 U/L (45-117)
[2017-02-17 15:56] LABS: CALCIUM OXALATE CRYSTALS,URINE FEW /hpf; SQUAMOUS EPITHELIAL CELL URINE 0-5 /hpf (0-5); URINE COLOR YELLOW (YELLW/STRAW)
[2017-02-17] MEDS ORDERED: ONDANSETRON HCL 4 MG/2 ML VIAL IV PUSH ONE (16:00)
[2017-02-17] MEDS ORDERED: HYDR-3583 PO (16:05)
[2017-02-17 16:18] VITALS: BP 113/72
== END 2017-02-17 16:19 | disposition home or self-care (01) ==
LOC: PHED 13:59
DX: N23 Unspecified renal colic (principal); R11.0 Nausea; R06.02 Shortness of breath; R59.1 Generalized enlarged lymph nodes; D64.9 Anemia, unspecified; M06.9 Rheumatoid arthritis, unspecified; I10 Essential (primary) hypertension; J45.909 Unspecified asthma, uncomplicated; Z87.442 Personal history of urinary calculi
CPT/HCPCS: 80053; 81001; 85025; 96374; 99283; J2405

== ENCOUNTER 2017-05-02 15:19 | Emergency (ER) | payer MEDICAID ==
[~2017-05-02] VITALS: Ht 160 cm; Wt 91.7 kg
[~2017-05-02 15:19] MED LIST changes: +ALBUAER3 INH; +HYDR-3516 PO; +HYDR-3583 PO; -MULTTAB67 PO; -OMEGCAP PO; -PERC5TAB12 PO; +TIOT1AER2 INH; -TURM500C3 PO; +ZOFR4TAB PO
[2017-05-02 15:27] VITALS: BP 118/69; PULSE 84; RESP 16; TEMP 100.1; O2SAT 99
[2017-05-02] MEDS ORDERED: TRAM50TA PO (15:48)
[2017-05-02] MEDS ORDERED: CLON.5 PO (15:48)
[2017-05-02 15:52] LABS: BILIRUBIN, URINE NEG (NEG); BLOOD, URINE LARGE (NEG); GLUCOSE,URINE NEG (NEG); KETONE, URINE NEG (NEG); NITRITE,URINE NEG (NEG); PH, URINE 5.5 (5.0-8.5); URINE COLOR YELLOW (YELLW/STRAW); URINE LEUKOCYTE ESTERASE NEG (NEG)
[2017-05-02 16:07] LABS: MUCUS URINE RARE /lpf (OCC); WBC, URINE 0-2 /hpf (0-5)
[2017-05-02 16:08] LABS: SQUAMOUS EPITHELIAL CELL URINE 0-2 /hpf (0-5)
--- NOTE | 2017-05-02 16:33 | PD ---
HPI . Pelvic and flank pain Chief Complaint: Flank/Kidney Pain Time Seen by Provider: 16:06 Travel History International Travel<30 days: No Contact w/Intl Traveler<30days: No Traveled to known affect area: No History of Present Illness HPI This patient presents complaining with increasing pelvic pain over the course of last 5 days. The patient reports chronic pelvic pain. She has had a total hysterectomy/bilateral salpingo-oophorectomy because of endometriosis. Despite this, she continues to have chronic pelvic pain. She states that her pain has been getting gradually and progressively worse for the last 5 days. She describes a pressure-like sensation. She rates it as 6/10. It has been unrelieved by ibuprofen and Ultram. She has also developed pain in the right upper abdomen and right flank area but this discomfort also radiates across to the left side. She has previously had a cholecystectomy and appendectomy. The patient reports diffuse lymphadenopathy etiology of which is currently undetermined. She has had a previous biopsy which showed granulomatous lymphadenitis. However, there is still concern for possible lymphoma. The patient reports some subjective fevers and increasing night sweats for the last 5 days. She also reports nausea and anorexia. The nausea is relieved by Zofran but she continues to have the anorexia. She has chronic frequency of urination but denies dysuria. PFSH Past Medical History Hx Anticoagulant Therapy: No Anemia: Yes (PAST) Arthritis: Yes (RA) Asthma: No Autoimmune Disease: Yes (POSSIBLE CHRONIC ACUTE EVB) Blood Disorders: No Heart Rhythm Problems: Yes (REPORTS SINUS TACHYCARDIA) Cancer: Yes Cardiovascular Problems: Yes (htn ) High Cholesterol: No Chemotherapy: No Chest Pain: Yes (REPORTS CHEST PRESSURE ) Congestive Heart Failure: No COPD: No Diabetes: No Diminished Hearing: No Endocrine: No Gastrointestinal Disorders: No Genitourinary: Yes (REPORTS URINARY FREQUENCY) Herniated Disk: Yes (two) Hypertension: Yes Immune Disorder: No Implanted Vascular Access Dvce: No Kidney Stones: Yes Musculoskeletal: Yes (REPORTS MUSCLE ACHES AT NIGHT) Neurologic: No Psychiatric: No Reproductive: Yes (ENDOMETRIOSIS) Respiratory: Yes (ASTHMA) Immunizations Current: No Migraines: Yes Radiation Therapy: No Sleep Apnea: No Thyroid Disease: No ?: Not Menopausal: Yes : 3 Para: 3 Ovarian Cysts: Yes Tubal Ligation: Yes Past Surgical History Abdominal Surgery: Yes (HAD LAP 07/03/06) Appendectomy: Yes Body Medical Devices: DX WITH TUMOR RIGHT OVARY Section: Yes (X3) Cholecystectomy: Yes Gynecologic Surgery: Yes (, LAPAROSCOPIES) Hysterectomy: Yes Other Surgery: Yes (LEFT BREAST LUMPECTOMY lymph node bxs) Social History Alcohol Use: No Tobacco Use: No (smoked cigs for 3 yrs) Substance Use: No Allergies-Medications (Allergen,Severity, Reaction): Coded Allergies: benzoin (Verified Allergy, Severe, rash, 05/02/17) ketorolac (Verified Allergy, Severe, RASH, 05/02/17) storax (Verified Allergy, Severe, rash, 05/02/17) jorge balsam (Verified Allergy, Severe, rash, 05/02/17) metoclopramide (Verified Adverse Reaction, Severe, AGGITATION/INCREASED HR , 05/02/17) prochlorperazine (Verified Adverse Reaction, Severe, AGGITATION/INCREASED HR, 05/02/17) Reported Meds & Prescriptions Reported Meds & Active Scripts Active Atenolol 100 Mg Tab 50 Mg PO BID Reported Tramadol (Tramadol HCl) 50 Mg Tab 1-2 Tab PO Q4H PRN Klonopin (Clonazepam) 0.5 Mg Tab 0.5 Mg PO HS Zofran (Ondansetron HCl) 4 Mg Tab 4 Mg PO Q6HR PRN Review of Systems Except as stated in HPI: all other systems reviewed are Neg General / Constitutional: Positive: Fever, Chills, Other (night sweats) Gastrointestinal: Positive: Nausea, Abdominal Pain, Loss of Appetite, No: Vomiting, Diarrhea Genitourinary: Positive: Frequency, No: Dysuria Physical Exam Narrative GENERAL: Patient is awake and alert and does not appear to be in any distress. SKIN: warm/dry. Normal color and turgor. HEAD: Normocephalic. Atraumatic. EYES: Pupils equal and round. No scleral icterus. No injection or drainage. ENT: No nasal bleeding or discharge. Mucous membranes pink and moist. NECK: Trachea midline. Full range of motion without pain.. CARDIOVASCULAR: Regular rate and rhythm. Heart sounds are normal. RESPIRATORY: No accessory muscle use. Clear to auscultation. Breath sounds equal bilaterally. GASTROINTESTINAL: Abdomen soft. Mild tenderness with no guarding or rebound. Bowel sounds present. Nondistended. : No CVA tenderness. MUSCULOSKELETAL: No obvious deformities. NEUROLOGICAL: Awake and alert. No obvious cranial nerve deficits. Motor grossly within normal limits. Normal speech. PSYCHIATRIC: Appropriate mood and affect; insight and judgment normal. Data Data Last Documented VS Vital Signs Date Time Temp Pulse Resp B/P (MAP) Pulse Ox O2 Delivery O2 Flow Rate FiO2 05/02/17 15:44 18 05/02/17 15:27 100.1 84 118/69 (85) 99 Orders Orders Urinalysis - C+S If Indicated (05/02/17 15:28) Ed Urine Pregnancytest Poc (05/02/17 15:28) Ct Abd/Pel W/O Iv Contrast (05/02/17 16:26) Labs Laboratory Tests Test 05/02/17 15:38 Urine Collection Type VOIDED Urine Color YELLOW Urine Turbidity SL CLOUDY Urine pH 5.5 Urine Specific [place] 1.025 Urine Protein NEG mg/dL Urine Glucose (UA) NEG mg/dL Urine Ketones NEG mg/dL Urine Occult Blood LARGE Urine Nitrite NEG Urine Bilirubin NEG Urine Urobilinogen 0.2 MG/DL Urine Leukocyte Esterase NEG Urine RBC 50-99 /hpf Urine WBC 0-2 /hpf Urine Squamous Epithelial Cells 0-2 /hpf Urine Mucus RARE /lpf Microscopic Urinalysis Comment CULT NOT INDICATED MDM Medical Decision Making Medical Screen Exam Complete: Yes Emergency Medical Condition: Yes Medical Record Reviewed: Yes (this patient has been seen on several previous occasions and had CT scans done which show diffuse adenopathy.) Differential Diagnosis Differential diagnosis of abdominal pain includes but is not limited to gastritis, pancreatitis, hepatitis, gastroenteritis, gallbladder disease, constipation, urinary retention, UTI, peptic ulcer disease, diverticulitis or appendicitis Narrative Course This patient presents complaining with abdominal pain which she describes as a pressure-like sensation which is getting progressively worse over the last 5 days. She has had a previous hysterectomy and bilateral salpingo-oophorectomy, appendectomy and cholecystectomy. A UA was done and shows blood. A CT was subsequently done to look for a kidney stone. There was no kidney stone but she was found to be constipated. The diagnosis of constipation actually fits with her presenting complaints of increasing pressure-like abdominal pain, anorexia, nausea. CT: 1. No acute findings. Decrease in size of previous right inguinal and pelvic sidewall adenopathy. 2. Mild constipation. 3. Postoperative cholecystectomy, appendectomy and hysterectomy. 4. Small hiatal hernia. No acute findings. The patient will be discharged home with a prescription for GoLYTELY Diagnosis Primary Impression: Abdominal pain Qualified Codes: R10.84 - Generalized abdominal pain Additional Impressions: Hematuria Qualified Codes: R31.9 - Hematuria, unspecified Constipation Qualified Codes: K59.00 - Constipation, unspecified Patient Instructions: Abdominal Pain (ED), Constipation (DC), General Instructions Med/Other Pt SpecificInfo: Prescription(s) given Scripts Peg-Electrolytes (Golytely 236 gm) 4,000 Ml Soln 4000 ML PO ONCE for Bowel Cleanser, #1 CONTAINER 0 Refills Prov: Lori Renteria MD 05/02/17 Disposition: 01 DISCHARGE HOME Condition: Stable Lori Renteria MD May 02, 2017 16:33
--- NOTE | 2017-05-02 17:02 | RADRPT ---
EXAM DATE/TIME: 05/02/2017 16:40 [facility] COMPARISON: CT ABDOMEN & PELVIS W/O CONTRAST, October 03, 2016, 8:27. INDICATIONS : Pelvic pressure with right flank pain and vomiting. ORAL CONTRAST: No oral contrast ingested. RADIATION DOSE: 23.54 CTDIvol (mGy) MEDICAL HISTORY : Hypertension. Renal calculi. SURGICAL HISTORY : Appendectomy. Cholecystectomy.Hysterectomy. ENCOUNTER: Initial ACUITY: 4 - 6 days PAIN SCALE: 6/10 LOCATION: Right flank TECHNIQUE: Volumetric scanning of the abdomen and pelvis was performed. Using automated exposure control and ad justment of the mA and/or kV according to patient size, radiation dose was kept as low as reasonably achievable to obtain optimal diagnostic quality images. DICOM format image data is available electro nically for review and comparison. FINDINGS: Lung bases are clear. No acute findings in the liver, spleen, adrenals, kidneys or pancreas. Previous cholecystectomy and hysterectomy and appendectomy. There is mild constipation. No free air or free fluid. Previous enlarged right inguinal lymph nodes and right pelvic side wall lymph nodes have decreased in size in short axis diameter is now 1 cm or less. CONCLUSION: 1. No acute findings. Decrease in size of previous right inguinal and pelvic sidewall adenopathy. 2. Mild constipation. 3. Postoperative cholecystectomy, appendectomy and hysterectomy. 4. Small hiatal hernia. No acute findings. Matthew Damon MD on May 02, 2017 at 16:49 Board Certified Radiologist. This report was verified electronically.
[2017-05-02] MEDS ORDERED: COLY4000S PO (17:20)
== END 2017-05-02 17:37 | disposition home or self-care (01) ==
LOC: PHED 15:19
DX: R10.84 Generalized abdominal pain (principal); R31.9 Hematuria, unspecified; K59.00 Constipation, unspecified; R50.9 Fever, unspecified; I10 Essential (primary) hypertension; J45.909 Unspecified asthma, uncomplicated
CPT/HCPCS: 74176; 81001; 99284

== ENCOUNTER 2017-08-30 13:57 | Observation (INO) ==
[2017-08-30] MEDS ORDERED: Sod Chloride 0.9% Inj 1,000 ML IV.SIG ONE (14:22)
--- NOTE | 2017-08-30 14:28 | ED ---
HPI General Chief complaint: Respiratory Symptoms Stated complaint: Chest Pain x 1100/Abd Pain Time Seen by Provider: 08/30/17 14:22 History of Present Illness HPI narrative: 41-year-old female history of sarcoidosis, splenectomy here for evaluation of fever and generalized weakness. Patient temperature was 102.3 this morning that went down with 800 mg of ibuprofen. Patient has been having cough, nausea vomiting for the last 4 days. Patient denies any sore throat or headache or blurry vision but reports occasional epigastric pain that comes and goes for the last 4 days as well. Also reports shortness of breath for the last 2 days, she attributes that to the steroids that she takes. Related Data Home Medications Medication Instructions Recorded Confirmed atenolol 25 mg PO DAILY 08/30/17 08/30/17 clonazepam [Klonopin] 1 mg PO BID 08/30/17 08/30/17 prednisone 40 mg PO DAILY 08/30/17 08/30/17 Allergies Allergy/AdvReac Type Severity Reaction Status Date / Time benzoin Allergy Severe rash Verified 08/30/17 14:05 ketorolac Allergy Severe RASH Verified 08/30/17 14:05 storax Allergy Severe rash Verified 08/30/17 14:05 jorge balsam Allergy Severe rash Verified 08/30/17 14:05 metoclopramide AdvReac Severe AGGITATION/INCREASED Verified 08/30/17 14:05 HR prochlorperazine AdvReac Severe AGGITATION/INCREASED Verified 08/30/17 14:05 HR Review of Systems Except as stated in HPI: all other systems reviewed are negative [facility] Surgical History Surgical History Hx of splenectomy (Acute) Hx of lymph node biopsy (Acute) Hx of breast biopsy (Acute) Hx of hysterectomy, total (Acute) Hx of section (Acute) Social History Social History Substance History: No History of Abuse Second Hand Smoke Exposure: No Smoking Status: Never smoker How Often Do You Have a Drink Containing Alcohol: 2 to 4 times a month Recent Travel in [place] within the Last 8 Weeks: No Recent Out of Country Travel within the Last 8 Weeks: No Immunization History Tetanus Immunization: >5 Years Hx Influenza Vaccine This Season: No Exam Narrative Exam Narrative: GENERAL: Alert oriented 3 no acute distress. SKIN: Focused skin assessment warm/dry. HEAD: Atraumatic. Normocephalic. EYES: Pupils equal and round. No scleral icterus. No injection or drainage. ENT: No nasal bleeding or discharge. Mucous membranes pink and moist. NECK: Trachea midline. No JVD. CARDIOVASCULAR: Regular rate and rhythm. No murmur appreciated. RESPIRATORY: No accessory muscle use. Clear to auscultation. Breath sounds equal bilaterally. GASTROINTESTINAL: Abdomen soft, non-tender, nondistended. Hepatic and splenic margins not palpable. MUSCULOSKELETAL: No obvious deformities. No clubbing. No cyanosis. No edema. NEUROLOGICAL: Awake and alert. No obvious cranial nerve deficits. Motor grossly within normal limits. Normal speech. PSYCHIATRIC: Appropriate mood and affect; insight and judgment normal. Course Initial Documented Vital Signs Temperature 99.1 F 08/30/17 14:01 Pulse Rate 88 08/30/17 14:01 Blood Pressure 116/68 08/30/17 14:01 Pulse Oximetry 98 08/30/17 14:01 Last Documented Vital Signs Temperature 99.1 F 08/30/17 14:01 Pulse Rate 85 08/30/17 16:54 Respiratory Rate 14 08/30/17 16:54 Blood Pressure 143/72 H 08/30/17 16:54 Pulse Oximetry 95 08/30/17 16:54 Medical Decision Making [facility] Narrative Medical decision making narrative: 41-year-old female history of sarcoidosis and splenectomy here for evaluation of fever at home of T-max 102.9. The patient had low saturation on room air here in the ER of lower 90s. Chest x- ray is unremarkable, CT abdomen negative, labs are within normal limits. I still do not see a reason for the fever. Vitals are stable except for low saturation on room air. I believe the epigastric pain could be due to steroid- induced ulcer/gastritis and I give the patient 1 dose of Protonix meanwhile I still cannot find a reason for the fever and will admit the patient for further evaluation of the asplenic fever and to rule out sepsis. Lab Data Result diagrams: 08/30/17 14:34 08/30/17 14:34 Lab Results 08/30/17 08/30/17 08/30/17 Range/Units 14:34 14:34 14:34 CBC w Diff Auto diff final WBC 11.0 (4.0-11.0) th/mm3 RBC 4.36 (4.00-5.30) mil/mm3 Hgb 12.6 (11.6-15.3) gm/dL Hct 37.6 (35.0-46.0) % MCV 86.1 (80.0-100.0) fL MCH 28.9 (27.0-34.0) pg MCHC 33.5 (32.0-36.0) % RDW 14.7 (11.6-17.2) % Plt Count 547 H (150-450) th/mm3 MPV 9.0 (7.0-11.0) fL Neut % (Auto) 66.0 (16.0-70.0) % Lymph % (Auto) 22.0 (9.0-44.0) % [place] % (Auto) 7.5 (0.0-8.0) % Eos % (Auto) 1.1 (0.0-4.0) % Baso % (Auto) 3.4 H (0.0-2.0) % Neut # (Auto) 7.3 (1.8-7.7) th/mm3 Lymph # (Auto) 2.4 (1.0-4.8) th/mm3 [place] # (Auto) 0.8 (0.0-0.9) th/mm3 Eos # (Auto) 0.1 (0.0-0.4) th/mm3 Baso # (Auto) 0.4 H (0.0-0.2) th/mm3 WBC Differential . Differential Comment . PT 10.5 (9.8-11.6) sec INR 1.0 Ratio Sodium 144 (136-145) meq/L Potassium 4.1 (3.5-5.1) meq/L Chloride 109 H (98-107) meq/L Carbon Dioxide 25.8 (21.0-32.0) meq/L Anion Gap 9 (5-15) meq/L BUN 8 (7-18) mg/dL Creatinine 0.68 (0.50-1.00) mg/dL Estimated GFR Greater than 89 (>89) mL/min Random Glucose 86 (74-106) mg/dL Lactic Acid (0.4-2.0) mmol/L Calcium 9.1 (8.5-10.1) mg/dL Total Bilirubin 0.3 (0.2-1.0) mg/dL Direct Bilirubin 0.1 (0.0-0.2) mg/dL AST 15 (15-37) U/L ALT 22 (10-53) U/L Alkaline Phosphatase 115 (45-117) U/L Total Protein 8.5 H (6.4-8.2) g/dL Albumin 3.9 (3.4-5.0) g/dL Lipase 69 L (73-393) U/L Urine Color (Yellw/Straw) Urine Clarity (Clear) Urine pH (5.0-8.5) Ur Specific [place] (1.002-1.035) Urine Protein (Neg-Trace) mg/dL Urine Glucose (UA) (Negative) mg/dL Urine Ketones (Negative) mg/dL Urine Occult Blood (Negative) Urine Nitrate (Negative) Urine Bilirubin (Negative) Urine Urobilinogen (Less than 2) mg/dL Ur Leukocyte Esterase (Negative) 08/30/17 08/30/17 Range/Units 14:34 17:20 CBC w Diff WBC (4.0-11.0) th/mm3 RBC (4.00-5.30) mil/mm3 Hgb (11.6-15.3) gm/dL Hct (35.0-46.0) % MCV (80.0-100.0) fL MCH (27.0-34.0) pg MCHC (32.0-36.0) % RDW (11.6-17.2) % Plt Count (150-450) th/mm3 MPV (7.0-11.0) fL Neut % (Auto) (16.0-70.0) % Lymph % (Auto) (9.0-44.0) % [place] % (Auto) (0.0-8.0) % Eos % (Auto) (0.0-4.0) % Baso % (Auto) (0.0-2.0) % Neut # (Auto) (1.8-7.7) th/mm3 Lymph # (Auto) (1.0-4.8) th/mm3 [place] # (Auto) (0.0-0.9) th/mm3 Eos # (Auto) (0.0-0.4) th/mm3 Baso # (Auto) (0.0-0.2) th/mm3 WBC Differential Differential Comment PT (9.8-11.6) sec INR Ratio Sodium (136-145) meq/L Potassium (3.5-5.1) meq/L Chloride (98-107) meq/L Carbon Dioxide (21.0-32.0) meq/L Anion Gap (5-15) meq/L BUN (7-18) mg/dL Creatinine (0.50-1.00) mg/dL Estimated GFR (>89) mL/min Random Glucose (74-106) mg/dL Lactic Acid 1.8 (0.4-2.0) mmol/L Calcium (8.5-10.1) mg/dL Total Bilirubin (0.2-1.0) mg/dL Direct Bilirubin (0.0-0.2) mg/dL AST (15-37) U/L ALT (10-53) U/L Alkaline Phosphatase (45-117) U/L Total Protein (6.4-8.2) g/dL Albumin (3.4-5.0) g/dL Lipase (73-393) U/L Urine Color Yellow (Yellw/Straw) Urine Clarity Clear (Clear) Urine pH 6.5 (5.0-8.5) Ur Specific [place] Less/equal 1.005 (1.002-1.035) Urine Protein Negative (Neg-Trace) mg/dL Urine Glucose (UA) Negative (Negative) mg/dL Urine Ketones Negative (Negative) mg/dL Urine Occult Blood Negative (Negative) Urine Nitrate Negative (Negative) Urine Bilirubin Negative (Negative) Urine Urobilinogen 0.2 (Less than 2) mg/dL Ur Leukocyte Esterase Negative (Negative) Imaging Data Radiologist's impression: Chest X-Ray 08/30/17 14:22 CONCLUSION: No acute cardiopulmonary process Abdomen/Pelvis CT 08/30/17 15:26 CONCLUSION: Essentially unremarkable study. Discharge Plan Discharge Disposition Patient Disposition: 30 Still Patient Discharge Condition Condition: Stable Discharge Details Diagnosis: Hx of asplenia, Fever Physicians Team ED Provider: Jimbo Car Primary Care Provider: Aubrey Herring Rxs /Orders / Referrals /Forms Prescriptions: No Action prednisone 20 mg Tablet 40 mg PO DAILY RF: 0 clonazepam [Klonopin] 1 mg Tablet 1 mg PO BID RF: 0 atenolol 25 mg Tablet 25 mg PO DAILY RF: 0 Discharge Interventions Interventions: Vital Signs Last Done: 08/30/17 16:42 Status ED Status: With Doctor
[2017-08-30 14:47] LABS: Baso # (Auto) 0.4 th/mm3 (0.0-0.2); Baso % (Auto) 3.4 % (0.0-2.0); Eos # (Auto) 0.1 th/mm3 (0.0-0.4); Eos % (Auto) 1.1 % (0.0-4.0); Hematocrit 37.6 % (35.0-46.0); Hemoglobin 12.6 gm/dL (11.6-15.3); Lymph # (Auto) 2.4 th/mm3 (1.0-4.8); Mean Corpuscular HGB Conc 33.5 % (32.0-36.0); Mean Corpuscular Hemoglobin 28.9 pg (27.0-34.0); Mean Corpuscular Volume 86.1 fL (80.0-100.0); Mono # (Auto) 0.8 th/mm3 (0.0-0.9); Mono % (Auto) 7.5 % (0.0-8.0); Neut # (Auto) 7.3 th/mm3 (1.8-7.7); Platelet Count 547 th/mm3 (150-450); Red Blood Count 4.36 mil/mm3 (4.00-5.30); Red Cell Distribution Width 14.7 % (11.6-17.2)
[2017-08-30 14:56] LABS: Chloride 109 meq/L (98-107); Potassium 4.1 meq/L (3.5-5.1); Sodium 144 meq/L (136-145)
--- NOTE | 2017-08-30 14:56 | XR ---
EXAM DATE: 08/30/2017 2:35 PM EDT AGE/SEX: 41 years / Female INDICATIONS: . Short of breath CLINICAL DATA: This is the patient's initial encounter. Patient reports that signs and symptoms have been present for 2 days and indicates a pain score of 5/10. MEDICAL/SURGICAL HISTORY: . Sarcoidosis Breast biopsy. COMPARISON: [facility], CHEST SINGLE AP, 10/06/2016. . FINDINGS: A single AP view of the chest demonstrates the lungs to be symmetrically aerated without evidence of mass, infiltrate or effusion. The cardiomediastinal contours are unremarkable. Osseous structures a re intact. CONCLUSION: No acute cardiopulmonary process Electronically signed by: Dion Pham MD 08/30/2017 2:55 PM EDT
[2017-08-30 14:58] LABS: Prothrombin Time 10.5 sec (9.8-11.6)
[2017-08-30 15:00] LABS: Calcium 9.1 mg/dL (8.5-10.1)
[2017-08-30 15:01] LABS: Albumin 3.9 g/dL (3.4-5.0); Anion Gap 9 meq/L (5-15); Blood Urea Nitrogen 8 mg/dL (7-18); Carbon Dioxide 25.8 meq/L (21.0-32.0); Glucose,Random 86 mg/dL (74-106); Lipase 69 U/L (73-393)
[2017-08-30 15:04] LABS: Alanine Aminotransferase 22 U/L (10-53); Aspartate Aminotransferase 15 U/L (15-37); Glomerular Filtration Rate Greater Than 89 mL/min (>89)
[2017-08-30 15:05] LABS: Total Protein 8.5 g/dL (6.4-8.2)
[2017-08-30 15:06] LABS: Alkaline Phosphatase 115 U/L (45-117)
--- NOTE | 2017-08-30 17:19 | CT ---
EXAM DATE: 08/30/2017 4:17 PM EDT AGE/SEX: 41 years / Female INDICATIONS: Nausea and vomiting. CLINICAL DATA: This is the patient's initial encounter. Patient reports that signs and symptoms have been present for 4 - 6 days and indicates a pain score of 0/10. MEDICAL/SURGICAL HISTORY: . Sarcoidosis. section. Hysterectomy. Splenectomy. ORAL CONTRAST: No oral contrast ingested. RADIATION DOSE: 19.36 CTDI (mGy) COMPARISON: No prior exams available for comparison. TECHNIQUE: Multiple contiguous axial images were obtained through the abdomen and pelvis following b olus infusion of 95 ml Omnipaque 350 (iohexol) nonionic water-soluble contrast as a single exam dos e. No oral contrast ingested. Using automated exposure control and adjustment of the mA and/or kV ac cording to patient size, radiation dose was kept as low as reasonably achievable to obtain optimal di agnostic quality images. DICOM format image data is available electronically for review and comparis on. FINDINGS: Abdomen CT: The liver, pancreas, kidneys, adrenals are unremarkable. The spleen is absent surgically and there is a small degenerated splenic splenule measures almost 1.1 cm in size. There is evidence for prior cho lecystectomy. There is no evidence for any appreciable pathological adenopathy, free fluid, or bowel obstruction. There is slight fat protrusion underneath the umbilicus without evidence for bowel abby iation. Pelvic CT: There is no evidence for mass, abscess formation, or any significant adenopathy within the pelvis. Th ere are scattered diverticuli within the colon mainly the sigmoid colon without signs of diverticulit is for technique. There is a hemangioma of L3 vertebrae. There are lymph nodes in the right external iliac chain not significantly changed since 2014 the largest measures 2 cm in size with fatty hilum b enign in appearance. CONCLUSION: Essentially unremarkable study. Electronically signed by: Paz Granger MD 08/30/2017 5:18 PM EDT
[2017-08-30] MEDS ORDERED: Pantoprazole Inj 40 MG Vial IV.PUSH STA (17:30)
[2017-08-30 17:32] LABS: Bilirubin,Urine Negative (Negative); Clarity,Urine Clear (Clear); Color,Urine Yellow (Yellw/Straw); Glucose,Urine (UA) Negative (Negative); Leukocyte Esterase,Urine Negative (Negative); Nitrite,Urine Negative (Negative); PH,Urine 6.5 (5.0-8.5); Specific Gravity,Urine Less/Equal 1.005 (1.002-1.035); Urobilinogen,Urine 0.2 mg/dL (Less than 2)
[2017-08-30] MEDS ORDERED: Temazepam 15 MG Capsule PO PRN (18:09)
[2017-08-30 18:13] LABS: Collection Time,Urine 1720 hours; Squamous Epithelial Cell,Urine 0-5 /hpf (0-5); WBC,Urine 0-5 /hpf (0-5)
[2017-08-30] MEDS: clonazePAM 1 MG Tablet PO SCH (20:18)
[2017-08-30] MEDS: predniSONE 20 MG Tablet PO SCH (20:44)
[2017-08-31] MEDS: predniSONE 20 MG Tablet PO SCH (08:18)
[2017-08-31] MEDS: clonazePAM 1 MG Tablet PO SCH ×2 (08:18→21:03)
[2017-08-31] MEDS: Atenolol 25 MG Tablet PO SCH (08:18)
[2017-08-31] MEDS: Morphine Inj 4 MG/ML Vial IV.PUSH PRN ×3 (08:19→18:22)
--- NOTE | 2017-08-31 10:57 | P.HPIM ---
History of Present Illness Primary Care Physician: Aubrey Herring Chief Complaint: Abdominal pain and diarrhea History of Present Illness: This patient is a 41-year-old female with a history of sarcoidosis who comes to the emergency room complaining of chest discomfort and pressure with associated diarrhea and dyspepsia. She has had diarrhea on and off for 6 days. She has had some episodes of stool incontinence. She notes a fever at home greater than 101. 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 Salas. She notes no nausea or vomiting. She has not had any bloody stool. She has had no fever since her arrival here and she has no leukocytosis. Patient still having diarrhea stool evaluation is pending. CT abdomen pelvis was done which does not show any intra -abdominal acute pathology. She was dehydrated and patient is recommended for observation due to these issues. - Diagnosis (1) Diarrhea (2) Fever Review of Systems All other systems reviewed negative except as stated in HPI Gastrointestinal: Reports abdominal pain, Reports incontinent of stools, Reports loose stools PMFSH - History History Provided By: Patient - Medical History Medical History: Medical History (Last Updated 08/31/17 @ 10:55 by Heather Florian MD) Sarcoidosis - Surgical History Surgical History: Surgical History (Last Reviewed 08/31/17 @ 10:54 by Heather Florian MD) Hx of splenectomy (Acute) Hx of lymph node biopsy (Acute) Hx of breast biopsy (Acute) Hx of hysterectomy, total (Acute) Hx of section (Acute) - Tobacco History Second Hand Smoke Exposure: No Smoking Status: Former smoker - Alcohol History How Often Do You Have a Drink Containing Alcohol: Monthly or less - Substance Use History Substance History: No History of Abuse - Travel History Recent Travel in the [place] Within the Last 8 Weeks: No Recent Travel Out of the Country Within the Last 8 Weeks: No - Immunization History Tetanus Immunization: >5 Years Hx Influenza Vaccine This Season: No Medications and Allergies Active Medications: Active Medications Atenolol (Tenormin) 25 mg PO DAILY [facility] Last Admin: 08/31/17 08:18 Dose: 25 mg Clonazepam (Klonopin) 1 mg PO BID MARGARITA Last Admin: 08/31/17 08:18 Dose: 1 mg Lactulose (Lactulose Liq) 30 ml PO DAILY PRN PRN Reason: SEVERE CONSITIPATION Morphine Sulfate (Morphine Inj) 2 mg IV.PUSH Q3H PRN PRN Reason: ABDOMINAL PAIN 1-10 Last Admin: 08/31/17 08:19 Dose: 2 mg Prednisone (Deltasone) 40 mg PO DAILY MARGARITA Last Admin: 08/31/17 08:18 Dose: Not Given Temazepam (Restoril) 15 mg PO HS PRN PRN Reason: INSOMNIA Allergies Allergy/AdvReac Type Severity Reaction Status Date / Time benzoin Allergy Severe rash Verified 08/30/17 14:05 ketorolac Allergy Severe RASH Verified 08/30/17 14:05 storax Allergy Severe rash Verified 08/30/17 14:05 jorge balsam Allergy Severe rash Verified 08/30/17 14:05 metoclopramide AdvReac Severe AGGITATION/INCREASED Verified 08/30/17 14:05 HR prochlorperazine AdvReac Severe AGGITATION/INCREASED Verified 08/30/17 14:05 HR Home Medications Medication Instructions Recorded Confirmed Type atenolol 25 mg PO DAILY 08/30/17 08/30/17 History clonazepam [Klonopin] 1 mg PO BID 08/30/17 08/30/17 History prednisone 40 mg PO DAILY 08/30/17 08/30/17 History Exam Vital signs: Vital Signs 08/30/17 14:01 08/30/17 15:00 08/30/17 15:16 Temperature 99.1 F Pulse Rate 88 85 72 Respiratory Rate 14 16 Blood Pressure 116/68 143/79 H 110/55 L Pulse Oximetry 98 95 96 08/30/17 16:42 08/30/17 16:54 08/30/17 17:54 Temperature Pulse Rate 75 85 77 Respiratory Rate 15 14 16 Blood Pressure 118/72 143/72 H 130/74 Pulse Oximetry 97 95 97 08/30/17 18:39 08/30/17 21:35 08/31/17 01:39 Temperature 98.0 F 97.3 F L Pulse Rate 77 80 62 Respiratory Rate 16 16 20 Blood Pressure 130/74 117/71 132/73 Pulse Oximetry 99 98 08/31/17 07:57 Temperature 96.0 F L Pulse Rate 78 Respiratory Rate 14 Blood Pressure 119/87 Pulse Oximetry 100 Intake & Output 08/30/17 08/31/17 08/31/17 18:59 06:59 18:59 Intake Total 1240 / 1240 Output Total 4 / 4 Balance 1236 / 1236 Weight 87 kg 88.9 kg Intake: IV 1000 / 1000 NS Inj 1,000 ML @ Wide Open IV. 1000 / 1000 SIG BOLUS ONE Rx#:[id number] Oral 240 / 240 Output: Urine/Stool Mix Other: # Voids 4 Weight On Admission 88 kg Narrative: GENERAL: Patient calm resting and without complaints SKIN: Warm and dry. No rashes or ecchymotic injuries EYES: Pupils equal and round. No scleral icterus. No injection or drainage. ENT: External ear exam normal. No acute nasal bleeding or discharge. Mucous membranes pink and moist. CARDIOVASCULAR: Regular rate and rhythm. No murmurs gallops or rubs appreciated RESPIRATORY: Good air flow and effort without accessory muscle use. Clear to auscultation. Breath sounds equal bilaterally. GASTROINTESTINAL: Abdomen soft, non-tender, mildly distended. Hepatic and splenic margins not palpable. MUSCULOSKELETAL: Extremities without clubbing, cyanosis, or edema. No obvious deformities. NEUROLOGICAL: Awake and alert. No obvious cranial nerve deficits. Motor grossly within normal limits. Five out of 5 muscle strength in the arms and legs. Normal speech. Results - Labs CBC & Chem 7: 08/30/17 14:34 08/30/17 14:34 Labs: Short CBC 08/30/17 Range/Units 14:34 WBC 11.0 (4.0-11.0) th/mm3 Hgb 12.6 (11.6-15.3) gm/dL Hct 37.6 (35.0-46.0) % Plt Count 547 H (150-450) th/mm3 BMP 08/30/17 14:34 Sodium 144 Potassium 4.1 Chloride 109 H Carbon Dioxide 25.8 BUN 8 Creatinine 0.68 Calcium 9.1 Liver Function 08/30/17 Range/Units 14:34 Total Bilirubin 0.3 (0.2-1.0) mg/dL Direct Bilirubin 0.1 (0.0-0.2) mg/dL AST 15 (15-37) U/L ALT 22 (10-53) U/L Alkaline Phosphatase 115 (45-117) U/L Albumin 3.9 (3.4-5.0) g/dL Urine 08/30/17 Range/Units 17:20 Urine Color Yellow (Yellw/Straw) Urine Clarity Clear (Clear) Urine pH 6.5 (5.0-8.5) Ur Specific [place] Less/equal 1.005 (1.002-1.035) Urine Protein Negative (Neg-Trace) mg/dL Urine Glucose (UA) Negative (Negative) mg/dL - Imaging Impressions Chest X-Ray 08/30/17 14:22 CONCLUSION: No acute cardiopulmonary process Abdomen/Pelvis CT 08/30/17 15:26 CONCLUSION: Essentially unremarkable study. Caprini VTE Risk Assessment Caprini VTE Risk Assessment: No/Low Risk (score <= 1) Caprini Risk Assessment Model: Point Value = 1 Point Value = 2 Point Value = 3 Point Value = 5 Age 41-60 Minor surgery BMI > 25 kg/m2 Swollen legs Varicose veins or History of unexplained or recurrent spontaneous Oral contraceptives or hormone replacement Sepsis (< 1 month) Serious lung disease, including pneumonia (< 1 month) Abnormal pulmonary function Acute myocardial infarction Congestive heart failure (< 1 month) History of inflammatory bowel disease Medical patient at bed rest Age 61-74 Arthroscopic surgery Major open surgery (> 45 min) Laparoscopic surgery (> 45 min) Malignancy Confined to bed (> 72 hours) Immobilizing plaster cast Central venous access Age >= 75 History of VTE Family history of VTE Factor V Leiden Prothrombin [id number] Lupus anticoagulant Anticardiolipin antibodies Elevated serum homocysteine Heparin-induced thrombocytopenia Other congenital or acquired thrombophilia Stroke (< 1 month) Elective arthroplasty Hip, pelvis, or leg fracture Acute spinal cord injury (< 1 month) Prophylaxis Regimen: Total Risk Factor Score Risk Level Prophylaxis Regimen 0-1 Low Early ambulation 2 Moderate Order ONE of the following: *Sequential Compression Device (SCD) *Heparin 5000 units SQ BID 3-4 Higher Order ONE of the following medications: *Heparin 5000 units SQ TID *Enoxaparin/Lovenox 40 mg SQ daily (WT < 150 kg, CrCl > 30 mL/min) *Enoxaparin/Lovenox 30 mg SQ daily (WT < 150 kg, CrCl > 10-29 mL/min) *Enoxaparin/Lovenox 30 mg SQ BID (WT < 150 kg, CrCl > 30 mL/min) AND/OR *Sequential Compression Device (SCD) 5 or more Highest Order ONE of the following medications: *Heparin 5000 units SQ TID (Preferred with Epidurals) *Enoxaparin/Lovenox 40 mg SQ daily (WT < 150 kg, CrCl > 30 mL/min) *Enoxaparin/Lovenox 30 mg SQ daily (WT < 150 kg, CrCl > 10-29 mL/min) *Enoxaparin/Lovenox 30 mg SQ BID (WT < 150 kg, CrCl > 30 mL/min) AND *Sequential Compression Device (SCD) Assessment and Plan - Assessment (1) Diarrhea Code(s): R19.7 - Diarrhea, unspecified Status: Acute Plan: Etiology unclear, no evidence of colitis or diverticulitis on imaging Follow-up C. difficile Stool studies for further recommendations May need outpatient endoscopy (2) Fever Code(s): R50.9 - Fever, unspecified Status: Acute Plan: Appears resolved at this time, may be due to intestinal issues splenectomy secondary to sarcoidosis. - Plan Discharge Planning: Likely discharge in a.m. pending further workup and if remains afebrile H&P: Quality - VTE Deep Vein Thrombosis/Pulmonary Embolism Present on Admission: No
[2017-08-31 11:38] LABS: Chloride 110 meq/L (98-107); Potassium 3.8 meq/L (3.5-5.1); Sodium 145 meq/L (136-145)
[2017-08-31 11:44] LABS: Calcium 8.5 mg/dL (8.5-10.1)
[2017-08-31 11:45] LABS: Anion Gap 9 meq/L (5-15); Blood Urea Nitrogen 13 mg/dL (7-18); Carbon Dioxide 26.4 meq/L (21.0-32.0); Glucose,Random 97 mg/dL (74-106)
[2017-08-31 11:48] LABS: Glomerular Filtration Rate Greater Than 89 mL/min (>89)
[2017-08-31] MEDS ORDERED: Loperamide 2 MG Capsule PO PRN (23:31)
[2017-09-01 00:10] LABS: Bilirubin,Urine Negative (Negative); Clarity,Urine Cloudy (Clear); Glucose,Urine (UA) Negative (Negative); Leukocyte Esterase,Urine Negative (Negative); Nitrite,Urine Negative (Negative); Specific Gravity,Urine Greater/Equal 1.030 (1.002-1.035); Urobilinogen,Urine 0.2 mg/dL (Less than 2)
[2017-09-01 00:11] LABS: Hematocrit 35.3 % (35.0-46.0); Hemoglobin 11.5 gm/dL (11.6-15.3)
[2017-09-01 00:14] LABS: Color,Urine Pink (Yellw/Straw)
[2017-09-01 00:15] LABS: RBC,Urine Innumerable /hpf (0-3); Squamous Epithelial Cell,Urine 0-5 /hpf (0-5)
[2017-09-01] MEDS: Morphine Inj 4 MG/ML Vial IV.PUSH PRN ×3 (05:05→20:10)
[2017-09-01 05:59] LABS: Baso # (Auto) 0.3 th/mm3 (0.0-0.2); Baso % (Auto) 3.6 % (0.0-2.0); Eos # (Auto) 0.4 th/mm3 (0.0-0.4); Eos % (Auto) 3.8 % (0.0-4.0); Hematocrit 36.3 % (35.0-46.0); Hemoglobin 11.6 gm/dL (11.6-15.3); Lymph # (Auto) 2.4 th/mm3 (1.0-4.8); Lymph % (Auto) 25.2 % (9.0-44.0); Mean Corpuscular HGB Conc 31.9 % (32.0-36.0); Mean Corpuscular Hemoglobin 28.4 pg (27.0-34.0); Mean Corpuscular Volume 89.1 fL (80.0-100.0); Mean Platelet Volume 9.8 fL (7.0-11.0); Mono # (Auto) 0.8 th/mm3 (0.0-0.9); Mono % (Auto) 8.2 % (0.0-8.0); Neut # (Auto) 5.6 th/mm3 (1.8-7.7); Neut % (Auto) 59.2 % (16.0-70.0); Platelet Count 477 th/mm3 (150-450); Red Blood Count 4.07 mil/mm3 (4.00-5.30); Red Cell Distribution Width 13.9 % (11.6-17.2); White Blood Count 9.5 th/mm3 (4.0-11.0)
[2017-09-01 06:08] LABS: Chloride 105 meq/L (98-107); Potassium 3.4 meq/L (3.5-5.1); Sodium 140 meq/L (136-145)
[2017-09-01 06:10] LABS: Anion Gap 8 meq/L (5-15); Calcium 8.5 mg/dL (8.5-10.1); Carbon Dioxide 27.3 meq/L (21.0-32.0); Glucose,Random 86 mg/dL (74-106)
[2017-09-01 06:11] LABS: Blood Urea Nitrogen 14 mg/dL (7-18)
[2017-09-01 06:14] LABS: Glomerular Filtration Rate Greater Than 89 mL/min (>89)
--- NOTE | 2017-09-01 09:42 | P.PNIM ---
Subjective Interval history: Patient seen in follow-up for abdominal pain. Likely due to adhesions. Tolerating diet no further fevers. Discharge home discussed with patient Physical Exam Vital signs: Vital Signs 08/31/17 12:03 08/31/17 18:06 08/31/17 20:00 Temperature 96.7 F L 98.7 F 98.6 F Pulse Rate 67 77 72 Respiratory Rate 16 15 20 Blood Pressure 107/68 136/72 118/85 Pulse Oximetry 94 L 98 99 09/01/17 00:00 09/01/17 08:00 Temperature 98.3 F 97.6 F Pulse Rate 81 65 Respiratory Rate 20 16 Blood Pressure 143/86 H 109/59 L Pulse Oximetry 98 97 Intake & Output 08/31/17 09/01/17 09/01/17 18:59 06:59 18:59 Intake Total 1440 / 1440 Balance 1440 / 1440 Weight 89.1 kg Intake: Oral 1440 / 1440 Other: # Voids 2 Date of Last Bowel Movement 08/31/17 # Bowel Movements 1 Narrative: GENERAL: Patient calm resting and without complaints SKIN: Warm and dry. No rashes or ecchymotic injuries EYES: Pupils equal and round. No scleral icterus. No injection or drainage. ENT: External ear exam normal. No acute nasal bleeding or discharge. Mucous membranes pink and moist. CARDIOVASCULAR: Regular rate and rhythm. No murmurs gallops or rubs appreciated RESPIRATORY: Good air flow and effort without accessory muscle use. Clear to auscultation. Breath sounds equal bilaterally. GASTROINTESTINAL: Abdomen soft, non-tender, nondistended. Hepatic and splenic margins not palpable. MUSCULOSKELETAL: Extremities without clubbing, cyanosis, or edema. No obvious deformities. NEUROLOGICAL: Awake and alert. No obvious cranial nerve deficits. Motor grossly within normal limits. Five out of 5 muscle strength in the arms and legs. Normal speech. Results - Labs CBC & Chem 7: 09/01/17 04:55 09/01/17 04:55 Laboratory Results - last 24 hr 08/30/17 08/31/17 08/31/17 23:30 11:25 23:50 CBC w Diff WBC RBC Hgb 11.5 L Hct 35.3 MCV MCH MCHC RDW Plt Count MPV Neut % (Auto) Lymph % (Auto) [place] % (Auto) Eos % (Auto) Baso % (Auto) Neut # (Auto) Lymph # (Auto) [place] # (Auto) Eos # (Auto) Baso # (Auto) WBC Differential Differential Comment Sodium 145 Potassium 3.8 Chloride 110 H Carbon Dioxide 26.4 Anion Gap 9 BUN 13 Creatinine 0.69 Estimated GFR Greater than 89 Random Glucose 97 Calcium 8.5 Urine Color Urine Clarity Urine pH Ur Specific [place] Urine Protein Urine Glucose (UA) Urine Ketones Urine Occult Blood Urine Nitrate Urine Bilirubin Urine Urobilinogen Ur Leukocyte Esterase Urine RBC Urine WBC Ur Squamous Epith Cells Micro UA Comment Urine Culture Comments Stl C.difficile Tox PCR Negative St C. diff Tox Epid 027 Negative 08/31/17 09/01/17 09/01/17 23:50 04:55 04:55 CBC w Diff Auto diff final WBC 9.5 RBC 4.07 Hgb 11.6 Hct 36.3 MCV 89.1 MCH 28.4 MCHC 31.9 L RDW 13.9 Plt Count 477 H MPV 9.8 Neut % (Auto) 59.2 Lymph % (Auto) 25.2 [place] % (Auto) 8.2 H Eos % (Auto) 3.8 Baso % (Auto) 3.6 H Neut # (Auto) 5.6 Lymph # (Auto) 2.4 [place] # (Auto) 0.8 Eos # (Auto) 0.4 Baso # (Auto) 0.3 H WBC Differential . Differential Comment . Sodium 140 Potassium 3.4 L Chloride 105 Carbon Dioxide 27.3 Anion Gap 8 BUN 14 Creatinine 0.54 Estimated GFR Greater than 89 Random Glucose 86 Calcium 8.5 Urine Color [place] H Urine Clarity Cloudy H Urine pH 5.0 Ur Specific [place] Greater/equal 1.030 Urine Protein 30 H Urine Glucose (UA) Negative Urine Ketones Negative Urine Occult Blood Large H Urine Nitrate Negative Urine Bilirubin Negative Urine Urobilinogen 0.2 Ur Leukocyte Esterase Negative Urine RBC Innumerable H Urine WBC 5-8 H Ur Squamous Epith Cells 0-5 Micro UA Comment Culture not ind Urine Culture Comments Culture not ind Stl C.difficile Tox PCR St C. diff Tox Epid 027 Microbiology 08/30/17 14:34 Blood - Peripheral Aerobic Blood Culture - Preliminary No growth in 1 day 08/30/17 14:34 Blood - Peripheral Anaerobic Blood Culture - Preliminary No growth in 1 day 08/30/17 14:34 Blood - Peripheral Aerobic Blood Culture - Preliminary No growth in 1 day 08/30/17 14:34 Blood - Peripheral Anaerobic Blood Culture - Preliminary No growth in 1 day Assessment and Plan - Assessment (1) Diarrhea Code(s): R19.7 - Diarrhea, unspecified Status: Acute Plan: Etiology unclear, no evidence of colitis or diverticulitis on imaging neg C. 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 - Plan Discharge Planning: dc home reg diet activity as tolerate
[2017-09-01] MEDS: predniSONE 20 MG Tablet PO SCH (15:44)
[2017-09-01] MEDS: Atenolol 25 MG Tablet PO SCH (15:45)
[2017-09-01] MEDS: clonazePAM 1 MG Tablet PO SCH ×2 (15:45→20:13)
[2017-09-01] MEDS ORDERED: PEG 3350/E-Lyte Soln 4000 ML Bottle PO ONE (16:00)
--- NOTE | 2017-09-01 19:06 | MB ---
cc: Ibis Early MD DATE: 09/01/2017 REFERRING PHYSICIAN: Dr. Heather Florian. REASON FOR CONSULTATION: Abdominal pain, diarrhea, GI bleed. HISTORY OF PRESENT ILLNESS: Ms. Ram is a 41-year-old lady with history of sarcoidosis, who came to the emergency room with complaints of chest discomfort, pressure associated with diarrhea and dyspepsia. According to her, the diarrhea was going on for 6 days. She had also an episode of stool incontinence, had some fever. The patient was advised to come to the emergency room for further evaluation and treatment. Today, she was scheduled to be discharged, but she stated she had some blood in her stool and she is reluctant to wait and have endoscopy and colonoscopy as an outpatient due to her underlying history of sarcoidosis. PAST MEDICAL HISTORY: Sarcoidosis. PAST SURGICAL HISTORY: Splenectomy, lymph node biopsy, breast biopsy, hysterectomy, . SOCIAL HISTORY: Denies smoking, drinking or drug use. FAMILY HISTORY: No family history of colon cancer or any other GI pathology. MEDICATIONS: 1. Atenolol. 2. Klonopin. 3. Lactulose. 4. Morphine. 5. Prednisone. 6. Restoril. ALLERGIES: 1. BENZOIN. 2. KETOROLAC. 3. ____ 4. ____ 5. METOCLOPRAMIDE. 6. PROCHLORPERAZINE. REVIEW OF SYSTEMS: CONSTITUTIONAL: She did have fever, no chills. She reports having some weight loss, approximately 20 pounds. ENT: No alteration of baseline hearing or visual activity. PULMONARY: Denies any chest pain or shortness of breath. GASTROINTESTINAL: As above. GENITOURINARY: Denies dysuria or hematuria. HEMATOLOGICAL: Denies any history of anemia or bleeding disorder. SKIN: No alteration of baseline skin lesion. NEUROLOGIC: No history of TIA or CVA kind of symptoms. PHYSICAL EXAMINATION: GENERAL: She is sitting comfortably in bed in no acute distress. VITAL SIGNS: Temperature is 98.6, heart rate 76, respirations 16, blood pressure 121/83, saturation 97. HEAD: PERRLA. NECK: No JVD. No lymphadenopathy. CHEST: Clear to auscultation on palpation. CARDIOVASCULAR: S1, S2. No murmur. ABDOMEN: Soft, obese. Bowel sounds are present. CENTRAL NERVOUS SYSTEM: Awake, alert, oriented x 3. No focal signs identified. LABORATORY DATA: Her hemoglobin was 12.6, currently 11.6; platelets normal at 477; white count 9.5. Her chemistry is essentially normal. IMAGING STUDIES: The patient had a CT abdomen and pelvis, which was suggestive of a splenectomy, a small splenule, diverticulosis in the sigmoid colon without signs of diverticulitis, hemangioma of L3 and lymph nodes in the right external iliac chain, not significantly changed from 2015. IMPRESSION: Abdominal pain, diarrhea, bloody stool, possible infectious colitis, less likely inflammatory bowel disease versus ischemic colitis. RECOMMENDATIONS: EGD and colonoscopy in the morning. Monitor H and H closely. Stool studies. Supportive care. Continue current management. Further recommendation will depend on the patient's clinical status and the above results. MD KIERA JonesB/ZOEY , 06:43 PM , 07:05 PM
[2017-09-01 19:34] LABS: Baso # (Auto) 0.1 th/mm3 (0.0-0.2); Baso % (Auto) 0.7 % (0.0-2.0); Eos # (Auto) 0.2 th/mm3 (0.0-0.4); Eos % (Auto) 1.8 % (0.0-4.0); Hematocrit 35.8 % (35.0-46.0); Hemoglobin 11.8 gm/dL (11.6-15.3); Lymph # (Auto) 2.5 th/mm3 (1.0-4.8); Lymph % (Auto) 23.5 % (9.0-44.0); Mean Corpuscular HGB Conc 32.8 % (32.0-36.0); Mean Corpuscular Volume 88.3 fL (80.0-100.0); Mean Platelet Volume 8.5 fL (7.0-11.0); Mono % (Auto) 9.7 % (0.0-8.0); Neut # (Auto) 6.9 th/mm3 (1.8-7.7); Neut % (Auto) 64.3 % (16.0-70.0); Platelet Count 457 th/mm3 (150-450); Red Blood Count 4.06 mil/mm3 (4.00-5.30); Red Cell Distribution Width 13.6 % (11.6-17.2); White Blood Count 10.7 th/mm3 (4.0-11.0)
[2017-09-02] MEDS: Morphine Inj 4 MG/ML Vial IV.PUSH PRN ×6 (00:29→23:49)
--- NOTE | 2017-09-02 07:24 | GIPROC ---
[facility] [address] [place] [address], [id number] COLONOSCOPY PROCEDURE REPORT EXAM DATE: 09/02/2017 PATIENT NAME: Pippa Ram MR #: [id number] BIRTHDATE: 1975 ENDOSCOPIST: Ibis Early MD ORDER #: [id number] FOUR SLIDE MACHINE OPERATOR: Sara Pena STATUS: inpatient INDICATIONS: The patient is a 41 yr old female here for a colonoscopy due to abdominal pain, diarrhea, gi bleeding PROCEDURE PERFORMED: Colonoscopy with biopsy MEDICATIONS: None and Per Anesthesia. PREP QUALITY: good PREP TYPE:Other: ESTIMATED BLOOD LOSS: None CONSENT: The patient understands the risks and benefits of the procedure and understands that these risks include, but are not limited to: sedation, allergic reaction, infection, perforation and/or bleeding. Alternative means of evaluation and treatment include, among others: physical exam, x-rays, and/or surgical intervention. The patient elects to proceed with this endoscopic procedure. medical equipment was checked for proper function. Hand hygiene and appropriate measures for infection prevention was taken. After the risks, benefits and alternatives of the procedure were thoroughly explained, Informed consent was verified, confirmed and timeout was successfully executed by the treatment team. A digital exam revealed external hemorrhoids The Pentax EC-[id number] endoscope was introduced through the anus and advanced to the cecum, which was identified by both the appendix and ileocecal valve. The instrument was then slowly withdrawn as the colon was fully examined. COLON FINDINGS: Diverticulosis sigmoid,descending random biopsies from ascending , descending. Retroflexed views revealed internal hemorrhoids and Retroflexed views revealed small internal hemorrhoids The scope was then completely withdrawn from the patient and the procedure terminated. PROCEDURE WITHDRAWAL TIME:6minutes ADVERSE EVENTS: There were no complications. IMPRESSIONS: 1. Diverticulosis sigmoid,descending random biopsies from ascending , descending 2. Retroflexed views revealed internal hemorrhoids 3. Retroflexed views revealed small internal hemorrhoids 4. Revealed external hemorrhoids RECOMMENDATIONS: 1. Await biopsy results. Biopsy results will not be ready for 7-10 days. If you don't hear from us in two weeks, call our office for results. 2. Benefiber 2 tsp daily 3. Probiotics from any [employer] or health food store 4. Yearly rectal exams 5. Ok to wv home from gi point gi 4 weeks RECALL: Return 5 years Colonoscopy Ibis Early MD eSigned: Ibis Early MD 09/02/2017 7:23 AM cc:
--- NOTE | 2017-09-02 07:26 | GIPROC ---
[facility] [address] [place] [address], [id number] EGD PROCEDURE REPORT EXAM DATE: 09/02/2017 PATIENT NAME: Pippa Ram MR #: [id number] BIRTHDATE: 1975 ATTENDING: Ibis Early MD ORDER #: [id number] FAMILY LIFE COUNSELOR: Vinicio Sim and Sara Pena STATUS: inpatient INDICATIONS: The patient is a 41 yr old female here for an EGD due to abdominal pian, diarrhea, gi bleeding PROCEDURE PERFORMED: EGD w/ biopsy MEDICATIONS: None and Per Anesthesia. TOPICAL ANESTHETIC: none CONSENT: The patient understands the risks and benefits of the procedure and understands that these risks include, but are not limited to: sedation, allergic reaction, infection, perforation and/or bleeding. Alternative means of evaluation and treatment include, among others: physical exam, x-rays, and/or surgical intervention. The patient elects to proceed with this endoscopic procedure. medical equipment was checked for proper function. Hand hygiene and appropriate measures for infection prevention was taken. After the risks, benefits and alternatives of the procedure were thoroughly explained, Informed consent was verified, confirmed and timeout was successfully executed by the treatment team. The patient was anesthetized with topical anesthesia and the EC-[id number] (Pedi C) endoscope was introduced through the mouth and advanced to the second portion of the duodenum. Retroflexed views revealed a hiatal hernia The gastroscope was then slowly withdrawn and removed. Gastritis antrum-biopsy duodenum normal-biopsy irregular z line-biopsy. ADVERSE EVENTS: There were no complications. IMPRESSIONS: 1. Gastritis antrum-biopsy duodenum normal-biopsy irregular z line-biopsy 2. Retroflexed views revealed a hiatal hernia RECOMMENDATIONS: 1. Await biopsy results. Biopsy results will not be ready for 7-10 days. If you don't hear from us in two weeks, call our office for biopsy results. 2. Anti-reflux regimen 3. Continue PPI PATIENT CONDITION: stable DISPOSITION: Inpatient REPEAT EXAM: Return 3 years EGD Ibis Early MD eSigned: Ibis Early MD 09/02/2017 7:25 AM cc:
[2017-09-02] MEDS: Atenolol 25 MG Tablet PO SCH (09:52)
[2017-09-02] MEDS: clonazePAM 1 MG Tablet PO SCH ×3 (09:52→21:35)
[2017-09-02] MEDS: predniSONE 20 MG Tablet PO SCH (09:54)
--- NOTE | 2017-09-02 17:25 | P.PN ---
Subjective Interval history: Patient underwent EGD and colonoscopy today. She was told she has gastritis, diverticulosis and internal hemorrhoids. She still has mild abdominal pain diffusely. Physical Exam Vital signs: Vital Signs 09/01/17 20:00 09/02/17 00:00 09/02/17 06:20 Temperature 99.6 F 97.1 F L 98.0 F Pulse Rate 88 84 76 Respiratory Rate 20 20 20 Blood Pressure 154/69 H 136/81 122/73 Pulse Oximetry 98 97 100 09/02/17 07:30 09/02/17 07:45 09/02/17 08:06 Temperature 98.0 F 97.3 F L Pulse Rate 70 73 88 Respiratory Rate 15 15 20 Blood Pressure 96/57 L 115/77 125/72 Pulse Oximetry 100 96 96 09/02/17 11:02 09/02/17 15:20 Temperature 97.8 F 97.4 F L Pulse Rate 79 78 Respiratory Rate 20 20 Blood Pressure 111/57 L 115/62 Pulse Oximetry 98 98 Intake & Output 09/01/17 09/02/17 09/02/17 18:59 06:59 18:59 Intake Total 1340 / 1340 Balance 1340 / 1340 Weight 88 kg Intake: Oral 840 / 840 Anesthesia Amount 500 / 500 Other: # Voids 4 Date of Last Bowel Movement 09/01/17 # Bowel Movements 6 Narrative: GENERAL: Alert and oriented 3, no distress SKIN: Warm and dry. HEAD: Normocephalic. EYES: No scleral icterus. No injection or drainage. NECK: Supple, trachea midline. No JVD or lymphadenopathy. CARDIOVASCULAR: Regular rate and rhythm without murmurs, gallops, or rubs. RESPIRATORY: Breath sounds equal bilaterally. No accessory muscle use. GASTROINTESTINAL: Abdomen soft, mild diffuse tenderness, nondistended. MUSCULOSKELETAL: No cyanosis, or edema. BACK: Nontender without obvious deformity. No CVA tenderness. Results - Labs CBC & Chem 7: 09/01/17 19:29 09/01/17 04:55 Laboratory Results - last 24 hr 09/01/17 19:29 CBC w Diff Auto diff final WBC 10.7 RBC 4.06 Hgb 11.8 Hct 35.8 MCV 88.3 MCH 29.0 MCHC 32.8 RDW 13.6 Plt Count 457 H MPV 8.5 Neut % (Auto) 64.3 Lymph % (Auto) 23.5 [place] % (Auto) 9.7 H Eos % (Auto) 1.8 Baso % (Auto) 0.7 Neut # (Auto) 6.9 Lymph # (Auto) 2.5 [place] # (Auto) 1.0 H Eos # (Auto) 0.2 Baso # (Auto) 0.1 WBC Differential . Differential Comment . Microbiology 08/30/17 14:34 Blood - Peripheral Aerobic Blood Culture - Preliminary No growth in 3 days 08/30/17 14:34 Blood - Peripheral Anaerobic Blood Culture - Preliminary No growth in 3 days 08/30/17 14:34 Blood - Peripheral Aerobic Blood Culture - Preliminary No growth in 3 days 08/30/17 14:34 Blood - Peripheral Anaerobic Blood Culture - Preliminary No growth in 3 days Assessment and Plan - Assessment (1) Diarrhea Code(s): R19.7 - Diarrhea, unspecified Status: Acute Plan: Etiology unclear, no evidence of colitis or diverticulitis on imaging neg C. 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 - Plan Abdominal pain Presented initially as diarrhea, negative for C. difficile, negative for evidence of colitis Colonoscopy reveals internal hemorrhoids which accounts for her bleeding Colonoscopy also reveals diverticulosis which in the context of a fever may mean something, but she remains afebrile Asplenic fever Resolved since admission h/o sarcoidosis Affecting mostly lungs, follow-up as outpatient with to review stomach biopsies Discharge planning Patient is tolerating regular diet, blood cultures will be finalized tomorrow if she remains afebrile with negative blood cultures she can go home.
[2017-09-03] MEDS: Morphine Inj 4 MG/ML Vial IV.PUSH PRN ×3 (06:43→15:16)
[2017-09-03 07:45] VITALS: RESP 18
[2017-09-03] MEDS: clonazePAM 1 MG Tablet PO SCH (09:27)
[2017-09-03] MEDS: Atenolol 25 MG Tablet PO SCH (09:27)
[2017-09-03] MEDS: predniSONE 20 MG Tablet PO SCH (09:28)
[2017-09-03 12:18] LABS: Bilirubin,Urine Negative (Negative); Clarity,Urine Cloudy (Clear); Glucose,Urine (UA) Negative (Negative); Leukocyte Esterase,Urine Negative (Negative); Nitrite,Urine Negative (Negative); Specific Gravity,Urine 1.015 (1.002-1.035); Urobilinogen,Urine 0.2 mg/dL (Less than 2)
[2017-09-03 12:20] LABS: Color,Urine Pink (Yellw/Straw)
[2017-09-03 12:22] LABS: Collection Time,Urine 1210 hours; RBC,Urine 51-189 /hpf (0-3)
[2017-09-03 12:23] LABS: Amorphous Sediment,Urine Few /hpf; Mucus,Urine Few /lpf (Occasional); Squamous Epithelial Cell,Urine 0-5 /hpf (0-5)
--- NOTE | 2017-09-03 13:08 | US ---
EXAM DATE: 09/03/2017 12:04 PM EDT AGE/SEX: 41 years / Female INDICATIONS: Hematuria. Left flank pain. CLINICAL DATA: This is the patient's subsequent encounter. Patient reports that signs and symptoms h ave been present for 1 day and indicates a pain score of 4/10. MEDICAL/SURGICAL HISTORY: . Sarcoidosis. Breast biopsy. Hysterectomy. section. Lym ph node biopsy. Splenectomy. COMPARISON: No prior exams available for comparison. MEASUREMENTS: Right Kidney:__11.8 x 5.3 x 5.4 cm Left Kidney:__10.8 x 5.1 x 5.9 cm FINDINGS: Right Kidney: Normal echotexture and cortical thickness. No mass or hydronephrosis. Left Kidney: Normal echotexture and cortical thickness. No mass or hydronephrosis. Bladder: Within normal limits given the degree of distension. Other: None. CONCLUSION: 1. Negative renal sonogram. Electronically signed by: Paz Granger MD 09/03/2017 1:06 PM EDT
--- NOTE | 2017-09-03 16:23 | P.DS ---
Date of admission: 08/30/17 17:40 Primary care physician: Aubrey Herring Brief History from admission: This patient is a 41-year-old female with a history of sarcoidosis who comes to the emergency room complaining of chest discomfort and pressure with associated diarrhea and dyspepsia. She has had diarrhea on and off for 6 days. She has had some episodes of stool incontinence. She notes a fever at home greater than 101. 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 Salas. She notes no nausea or vomiting. She has not had any bloody stool. She has had no fever since her arrival here and she has no leukocytosis. Patient still having diarrhea stool evaluation is pending. CT abdomen pelvis was done which does not show any intra -abdominal acute pathology. She was dehydrated and patient is recommended for observation due to these issues. DS: Diagnosis - Discharge Diagnosis (1) Diarrhea Status: Acute (2) Fever Status: Acute DS: Medications - Discharge Medications Prescriptions: ciprofloxacin HCl 500 mg PO BID #14 tab ondansetron [Zofran ODT] 8 mg PO BID PRN #30 tab PRN Reason: Nausea tramadol 50 mg PO Q6H PRN #12 tab PRN Reason: Acute Pain DS: Summary Hospital Course: 41-year-old female who had her spleen removed approximately 5 months ago due to complications of sarcoidosis. She presented a few days ago with abdominal pain and unexplained fever. One day after admission she had an episode of GI bleeding. GI was consulted and an EGD along with a colonoscopy was performed. EGD revealed gastritis, colonoscopy revealed internal hemorrhoids and diverticulosis. She was recommended to follow-up as an outpatient with GI to review biopsies of the stomach. Her abdominal pain persisted, recheck of her urinalysis revealed persistent hematuria which was unexplained due to her having a hysterectomy 4 years ago. Kidney stone was not detected on abdominal pelvic CT in the ER, nor was it detected with an ultrasound of the left ureter. Alternative diagnosis may be early diverticulitis, though at this point she is afebrile and all scans have been negative for any evidence of active diverticulitis. At this point she is undergone full workup for any serious causes of her abdominal pain, all results appear to be negative. She understands that not everything can be seen with scans. We decided it appropriate to go home at this time and I recommended that she return to the ER for any worsening. In the meantime drink generous fluids, control pain with tramadol, take ciprofloxacin to cover for early diverticulitis if any fevers or worsening of left lower quadrant pain develops. - Time Spent with Patient Total time spent providing and/or coordinating discharge services: - Quality: VTE Deep Vein Thrombosis/Pulmonary Embolism Present on Admission: No Exam Vital signs: Vital Signs 09/02/17 20:00 09/03/17 00:00 09/03/17 07:44 Temperature 98.7 F 97.3 F L 96.9 F L Pulse Rate 87 67 68 Respiratory Rate 20 20 18 Blood Pressure 147/80 H 127/73 138/83 Pulse Oximetry 98 98 100 09/03/17 12:00 Temperature 98.5 F Pulse Rate 69 Respiratory Rate 18 Blood Pressure 116/68 Pulse Oximetry 100 Intake & Output 09/02/17 09/03/17 09/03/17 18:59 06:59 18:59 Intake Total 1340 / 1340 480 / 480 Balance 1340 / 1340 480 / 480 Weight 88 kg Intake: Oral 840 / 840 480 / 480 Anesthesia Amount 500 / 500 Other: # Voids 4 2 Date of Last Bowel Movement 09/03/17 Results Procedures completed during hospitalization: EGD, Colonoscopy 09/02/17 Labs on day of discharge: Labs from last 24 hours 09/03/17 12:10 Ur Collection Type Clean catch Urine Color [place] H Urine Clarity Cloudy H Urine pH 7.0 Ur Specific [place] 1.015 Urine Protein Negative Urine Glucose (UA) Negative Urine Ketones Negative Urine Occult Blood Large H Urine Nitrate Negative Urine Bilirubin Negative Urine Urobilinogen 0.2 Ur Leukocyte Esterase Negative Urine RBC 51-189 H Ur Squamous Epith Cells 0-5 Amorphous Sediment Few H Urine Mucus Few H Micro UA Comment Culture not ind Urine Culture Comments Culture not ind Urine Collection Time 1210 Preliminary micro results at discharge 08/30/17 14:34 Aerobic Blood Culture - Preliminary Blood - Peripheral No growth in 4 days Anaerobic Blood Culture - Preliminary No growth in 4 days 08/30/17 14:34 Aerobic Blood Culture - Preliminary Blood - Peripheral No growth in 4 days Anaerobic Blood Culture - Preliminary No growth in 4 days - Impressions ITS Impressions Chest X-Ray 08/30/17 14:22 CONCLUSION: No acute cardiopulmonary process Abdomen/Pelvis CT 08/30/17 15:26 CONCLUSION: Essentially unremarkable study. Abdomen/Bladder Ultrasound 09/03/17 00:00 CONCLUSION: 1. Negative renal sonogram. Discharge Plan - Discharge Disposition Patient Disposition: 01 Discharge Home - Discharge Condition Condition: Stable - Discharge Order Discharge Orders: Discharge Order (Routine); Ordered 09/03/17 Ordered By: Lee Hayward - Discharge Details Anticipated Discharge Date: 09/01/17 - Physicians Team Primary Care Provider: Aubrey Herring Attending Provider: Lee Hayward Other Providers: Ibis Early MD
[2017-09-03 16:25] VITALS: BP 133/98; PULSE 84; TEMP 97.7; O2SAT 98
== END 2017-09-03 17:23 | disposition home or self-care (01) ==
LOC: PHED 13:57 → PH3 13:57 → PHEDA 13:57 → PH3 18:41
PROVIDERS: ADMIT Family Medicine; ATTEND Family Medicine